=== PATIENT | female | born 1985 | race Caucasian/White ===

== ENCOUNTER 2018-01-19 07:13 | Outpatient (CLI) | payer BC, OTHER ==
[~2018-01-19] VITALS: Ht 165.1 cm; Wt 93.6 kg
[2018-01-19] MEDS ORDERED: TRAZ100T92 PO (13:46)
[2018-01-19] MEDS ORDERED: BUSP10TA95 PO (13:46)
[2018-01-19] MEDS ORDERED: CETI10TA17 PO (13:46)
[2018-01-19] MEDS ORDERED: NORG1TAB14 PO (13:46)
[2018-01-19] MEDS ORDERED: SERT100T8 PO (13:46)
[2018-01-19] MEDS ORDERED: LEVO50TA6 PO (13:46)
[2018-01-19 13:48] VITALS: BP 123/74
== END 2018-01-19 15:27 | disposition home or self-care (01) ==
LOC: PREOP 07:13
PROVIDERS: ATTEND Specialist
DX: Z01.818 Encounter for other preprocedural examination (principal); Z11.2 Encounter for screening for other bacterial diseases; M26.09 Other specified anomalies of jaw size
CPT/HCPCS: 87081

== ENCOUNTER 2018-04-20 05:31 | Outpatient (CLI) | payer BC ==
[~2018-04-20] VITALS: Ht 165.1 cm; Wt 93.4 kg
[~2018-04-20 05:31] MED LIST: BUSP10TA95 PO; CETI10TA17 PO; LEVO50TA6 PO; NORG1TAB14 PO; SERT100T8 PO; TRAZ100T92 PO
[2018-04-20] MEDS ORDERED: MONT10TA24 PO (12:48)
[2018-04-20] MEDS ORDERED: ZOLP10TA PO (12:48)
[2018-04-20] MEDS ORDERED: TRAZ-28 PO (12:48)
[2018-04-20] MEDS ORDERED: OMEP20TA7 PO (12:48)
== END 2018-04-20 13:08 ==
LOC: PREOP 05:31
PROVIDERS: ATTEND Specialist
DX: Z01.818 Encounter for other preprocedural examination (principal); M26.09 Other specified anomalies of jaw size

== ENCOUNTER 2018-05-01 08:07 | Day surgery (SDC) | payer BC ==
[~2018-05-01] VITALS: Ht 165.1 cm; Wt 93.4 kg
[~2018-05-01 08:07] MED LIST changes: +MONT10TA24 PO; +OMEP20TA7 PO; +TRAZ-28 PO; +ZOLP10TA PO
--- OUTSIDE RECORDS SUMMARY | 2018-05-01 08:12 | XMS REPORT ---
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 Medications Active Name Start Date Estimated Completion Date SIG Comments ibuprofen 800 mg oral tablet 12/17/2014 take 1 tablet by oral route 3 times a day as needed trazodone oral Zoloft oral Sprintec (28) 0.25-35 mg-mcg oral tablet 04/01/2015 take 1 tablet by oral route once daily Singulair 10 mg oral tablet 06/11/2015 12/08/2015 take 1 tablet (10 mg) by oral route once daily in the evening for 30 days levothyroxine 50 mcg oral tablet 06/11/2015 take 1 tablet by oral route daily prednisone 5 mg oral tablet 07/04/2015 take 4 tablets (20 mg) by oral route once daily for 5 days levothyroxine 50 mcg oral tablet 09/19/2015 TAKE ONE TABLET BY MOUTH ONCE DAILY Name Start Date Expiration Date SIG Comments Amoxil 500 mg oral capsule 02/11/2010 02/21/2010 take 1 capsule (500 mg) by oral route every 12 hours for 10 days amoxicillin 500 mg oral tablet 11/03/2011 11/10/2011 take 2 tablets by mouth BID x7 days. estradiol 1 mg oral tablet 07/27/2012 08/06/2012 take 1 tablet (1 mg) by oral route once daily for 10 days amoxicillin 500 mg oral capsule 02/22/2015 03/04/2015 take 1 capsule (500 mg) by oral route every 12 hours for 10 days Zyrtec-D 5-120 mg oral tablet extended release 12 hr 04/01/2015 take 1 tablet by oral route every 12 hours Medrol (Cale) 4 mg oral tablets,dose pack 04/07/2015 take as directed Flonase Allergy Relief 50 mcg/actuation nasal spray,suspension 04/16/2015 inhale 1 puff by nasal route 2 times a day Bactrim DS 800-160 mg oral tablet 06/11/2015 06/25/2015 take 1 tablet by oral route every 12 hours for 14 days Discontinued Name Start Date Discontinued Date SIG Comments Ventolin HFA 90 mcg/actuation inhalation HFA aerosol inhaler 02/11/20102013 inhale 1 - 2 puffs by inhalation route every 4-6 hours as needed promethazine-codeine 6.25-10 mg/5 mL oral syrup 02/11/2010 11/03/2011 take 5 milliliters by oral route every 6 hours as needed, not to exceed 30 mL in 24 hours Zoloft Oral 08/23/2014 trazodone Oral 09/23/2014 estradiol 1 mg oral tablet 07/27/2012 07/27/2012 take 1 tablet (1 mg) by oral route once daily for 10 days sent to [facility] cyclobenzaprine oral 09/23/2014 citalopram 20 mg oral tablet 09/24/2014 02/22/2015 take 1/2 tablet (20 mg) by oral route once daily zolpidem 10 mg oral tablet 11/13/2014 02/22/2015 take 1 tablet (10 mg) by oral route once daily at bedtime promethazine-codeine 6.25-10 mg/5 mL oral syrup 03/03/2015 04/01/2015 take 5 milliliters by oral route every 4-6 hours as needed, not to exceed 30 mL in 24 hours Problem List Description Status Onset Anemia Active Anxiety Active Asthma Active Vital Signs Date Time BP-Sys(mm[Hg] BP-Amanda(mm[Hg]) HR(bpm) RR(rpm) Temp WT HT HC BMI BSA BMI Percentile O2 Sat(%) 07/04/2015 9:15:00 AM 116 mmHg 82 mmHg 74 bpm 16 rpm 98.1 F 183 lbs 65 in 30.45 kg/m2 1.95 m2 98 % 06/11/2015 3:56:00 PM 110 mmHg 70 mmHg 74 bpm 16 rpm 99.6 F 187 lbs 65 in 31.1181 kg/m 1.9723 m 97 % 04/15/2015 10:35:00 AM 108 mmHg 75 mmHg 80 bpm 16 rpm 98 F 182.375 lbs 65 in 30.35 kg/m2 1.95 m2 98 % 04/07/2015 2:13:00 PM 118 mmHg 70 mmHg 66 bpm 20 rpm 97.8 F 185 lbs 65 in 30.7853 kg/m 1.9617 m 99 % 04/06/2015 1:35:00 PM 104 mmHg 72 mmHg 65 bpm 18 rpm 97.7 F 185 lbs 65 in 30.79 kg/m2 1.96 m2 99 % 04/01/2015 10:19:00 AM 118 mmHg 72 mmHg 62 bpm 18 rpm 99 F 187.25 lbs 65 in 31.1597 kg/m 1.9736 m 98 % 03/03/2015 9:50:00 AM 118 mmHg 80 mmHg 63 bpm 16 rpm 97.7 F 188.4 lbs 65 in 31.35 kg/m2 1.98 m2 97 % 02/22/2015 8:38:00 AM 124 mmHg 72 mmHg 74 bpm 18 rpm 98.4 F 190 lbs 65 in 31.6173 kg/m 1.9881 m 98 % 09/23/2014 3:54:00 PM 118 mmHg 72 mmHg 69 bpm 18 rpm 98.3 F 190.2 lbs 65 in 31.65 kg/m2 1.99 m2 99 % 08/23/2014 10:00:00 AM 124 mmHg 66 mmHg 76 bpm 18 rpm 97.6 F 189.5 lbs 65 in 31.5341 kg/m 1.9855 m 98 % 05/22/2012 9:44:00 AM 107 mmHg 74 mmHg 64 bpm 174 lbs 65 in 28.95 kg/m2 1.90 m2 05/09/2012 9:35:00 AM 128 mmHg 68 mmHg 66 bpm 18 rpm 176.5 lbs 65 in 29.3708 kg/m 1.9161 m 11/30/2011 9:57:00 AM 123 mmHg 74 mmHg 64 bpm 18 rpm 97.4 F 182.25 lbs 65 in 30.33 kg/m2 1.95 m2 11/03/2011 10:04:00 AM 126 mmHg 74 mmHg 64 bpm 18 rpm 96.3 F 184.25 lbs 65 in 30.6605 kg/m 1.9578 m 02/11/2010 9:17:00 AM 112 mmHg 68 mmHg 64 bpm 16 rpm 98 F 171.125 lbs Social History Name Description Comments Tobacco Never smoker Dating Alcohol Current some day Socially UNEMPLOYEED History of Procedures Date Ordered Description Order Status 11/30/2011 12:00 AM COMPLETE CBC W/AUTO DIFF WBC Returned 11/30/2011 12:00 AM ASSAY THYROID STIM HORMONE Returned 05/09/2012 12:00 AM CYTOPATH TBS C/V MANUAL Returned 05/09/2012 12:00 AM CHLAMYDIA CULTURE Returned 05/09/2012 12:00 AM N.GONORRHOEAE DNA AMP PROB Returned 05/09/2012 12:00 AM HTLV/HIV CONFIRMJ ANTIBODY Returned 05/09/2012 12:00 AM HEPATITIS B SURFACE AG EIA Returned 05/09/2012 12:00 AM HEPATITIS C AB TEST Returned 05/09/2012 12:00 AM SYPHILIS TEST NON-TREP QUAL Returned 05/09/2012 12:00 AM ASSAY THYROID STIM HORMONE Returned 05/22/2012 12:00 AM URINE TEST Reviewed 05/22/2012 12:00 AM INSERT DRUG IMPLANT DEVICE Reviewed 05/22/2012 12:00 AM Implanon device Reviewed 05/22/2012 12:00 AM URINE TEST Reviewed 08/23/2014 12:00 AM COMPLETE CBC W/AUTO DIFF WBC Returned 08/23/2014 12:00 AM COMPREHEN METABOLIC PANEL Returned 08/23/2014 12:00 AM ASSAY THYROID STIM HORMONE Returned 09/23/2014 12:00 AM THER/PROPH/DIAG INJ SC/IM Reviewed 09/23/2014 12:00 AM Decadron, Per 1 Mg [facility]# [address]-52 Reviewed 09/23/2014 12:00 AM Depo-Medrol 80 mg NDC#[address]-34 Reviewed 03/03/2015 12:00 AM THER/PROPH/DIAG INJ SC/IM Reviewed 03/03/2015 12:00 AM Decadron, Per 1 Mg [facility]# [address]-12 Reviewed 03/03/2015 12:00 AM Depo-Medrol 40mg Reviewed 04/01/2015 12:00 AM CYTOPATH C/V MANUAL Returned 04/01/2015 12:00 AM CHYLMD TRACH DNA AMP PROBE Returned 04/01/2015 12:00 AM N.GONORRHOEAE DNA AMP PROB Returned 04/01/2015 12:00 AM ASSAY OF TOTAL TESTOSTERONE Returned 06/11/2015 12:00 AM THER/PROPH/DIAG INJ SC/IM Reviewed 06/11/2015 12:00 AM Decadron, Per 1 Mg NDC# [address]-54 Reviewed 06/11/2015 12:00 AM Depo-Medrol 40mg Reviewed 06/11/2015 12:[address] MAXILLOFACIAL W/O DYE Returned Results Summary Data and Description Results 11/30/2011 10:52 AM WBC 8.5 RBC 4.32 HGB 12.90 g/dLHCT 37.90 %MCV 88.0 fLMCH 29.90 pgMCHC 34.0 g/dLRDW CV 12.50 %MPV 10.80 fLPLT 235 %NEUT 63.50 %%LYMP 28.30 %%MONO 6.70 %%EOS 1.30 %%BASO 0.20 %#NEUT 5.38 #LYMP 2.40 #MONO 0.57 #EOS 0.11 #BASO 0.02 TSH 3.640 uIU/mL 05/09/2012 10:52 AM TSH 1.590 uIU/mLHIV AG/AB COMBO 0.36 08/23/2014 10:52 AM WBC 5.2 RBC 4.11 HGB 12.10 g/dLHCT 35.40 %MCV 86.0 fLMCH 29.40 pgMCHC 34.20 g/dLRDW CV 12.50 %MPV 9.90 fLPLT 209 %NEUT 66.10 %%LYMP 26.80 %%MONO 5.40 %%EOS 1.50 %%BASO 0.20 %#NEUT 3.42 #LYMP 1.39 #MONO 0.28 #EOS 0.08 #BASO 0.01 GLUCOSE 107.0 mg/dLSODIUM 139.0 mmol/LPOTASSIUM 4.0 mmol/ LCHLORIDE 103.0 mmol/LCO2 26.0 mmol/LBUN 9.0 mg/dLCREATININE 0.70 mg/dLSGOT/AST 15.0 IU/LSGPT/ALT 9.0 IU/LALK PHOS 76.0 IU/LTOTAL PROTEIN 6.60 g/dLALBUMIN 4.0 g /dLTOTAL BILI 0.40 mg/dLCALCIUM 9.0 mg/dLeGFR 60 TSH 1.240 uIU/mL 04/01/2015 11:42 AM TESTOSTERONE 19.0 ng/dL History Of Immunizations Not available. History of Past Illness Name Date of Onset Comments Anxiety Anemia Asthma Headache Bronchitis, Acute Feb 11 2010 9:19AM Upper Respiratory Infections Feb 11 2010 9:19AM Depression OCD Thyroid disorder Pharyngitis, Acute Nov 03 2011 10:06AM Fatigue Nov 30 2011 10:02AM Lymph Nodes, Enlarged Nov 30 2011 10:02AM Family History of Hypothyroidism Nov 30 2011 10:02AM Routine gynecological examination May 09 2012 9:37AM High-Risk Sexual Behavior May 09 2012 9:37AM Hypothyroidism May 09 2012 9:37AM Contraceptive Counseling May 22 2012 9:53AM IMPLANON Insertion May 22 2012 10:25AM Special investigations and examinations; examination or test; examination or test, negative result May 22 2012 10:45AM Hypothyroidism, Acquired Aug 23 2014 10:02AM Fatigue Aug 23 2014 10:02AM Hyperthyroidism Sep 23 2014 3:56PM Depressive Disorder Sep 23 2014 3:56PM Insomnia Sep 23 2014 3:56PM Rhinitis, Allergic Sep 23 2014 3:56PM Sinusitis, Acute Feb 22 2015 8:40AM Cough Feb 22 2015 8:40AM Cough Mar 03 2015 9:54AM Sinusitis, Acute Mar 03 2015 9:54AM Routine gynecological examination Apr 01 2015 10:22AM Hirsutism Apr 01 2015 10:22AM Seasonal allergies Apr 01 2015 10:22AM Closed head injury Apr 06 2015 1:40PM Mild concussion Apr 06 2015 1:40PM Elbow tendonitis Apr 07 2015 2:16PM Headache Apr 15 2015 10:40AM Eustachian tube disorder, bilateral Apr 15 2015 10:40AM Chronic sinusitis Jun 11 2015 3:58PM Hypothyroidism, Acquired Jun 11 2015 3:58PM Acute Left Hip pain Jun 11 2015 3:58PM Knee pain, acute, left Jun 11 2015 3:58PM Photosensitive contact dermatitis Jul 04 2015 9:18AM Payers Insurance Name Company Name Plan Name Plan Number Policy Number Policy Group Number Start Date [employer] Financial Assistance [employer] Eric [id number] N/A [employer] [id number] N/A [employer] Employee Benefit [id number] N/A History of Encounters Visit Date Visit Type Provider 07/04/2015 Office visit Linnette Connor APRN 06/11/2015 Office visit Suki Ibrahim PEDIATRIC ALLERGIST 04/15/2015 Office visit Suki Ibrahim PEDIATRIC ALLERGIST 04/07/2015 Office visit Linnette Connor PEDIATRIC ALLERGIST 04/06/2015 Office visit Frank Telles PEDIATRIC ALLERGIST 04/01/2015 Office visit Suki Ibrahim PEDIATRIC ALLERGIST 03/03/2015 Office visit Suki Ibrahim PEDIATRIC ALLERGIST 02/22/2015 Office visit Ty Childers PA-C 09/23/2014 Office visit Linnette Connor PEDIATRIC ALLERGIST 08/23/2014 Office visit Suki Ibrahim PEDIATRIC ALLERGIST 05/22/2012 Office visit Renato Francis MD 05/09/2012 Office visit Suki Ibrahim PEDIATRIC ALLERGIST 11/30/2011 Office visit Suki Ibrahim PEDIATRIC ALLERGIST 11/03/2011 Office visit Suki Ibrahim PEDIATRIC ALLERGIST 02/11/2010 Office visit Amalia KELLER 10/06/2009 Office visit Han Benavidez DO
--- OUTSIDE RECORDS SUMMARY | 2018-05-01 08:13 | XMS REPORT ---
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 Phone Suki Ibrahim PCP Unavailable Allergies and Adverse Reactions Name [...] 1 tablet by oral route once daily levothyroxine 50 mcg oral tablet 06/11/2015 take 1 tablet by oral route daily levothyroxine 50 mcg oral tablet 09/19/2015 TAKE ONE TABLET BY MOUTH ONCE DAILY Augmentin 875-125 mg oral tablet 09/29/2015 10/06/2015 take 1 tablet by oral route every 12 hours for 7 days Name Start Date Expiration Date SIG Comments [...] route every 12 hours for 14 days Singulair 10 mg oral tablet 06/11/2015 12/08/2015 take 1 tablet (10 mg) by oral route once daily in the evening for 30 days prednisone 5 mg oral tablet 07/04/2015 take 4 tablets (20 mg) by oral route once daily for 5 days Discontinued Name Start Date Discontinued Date [...] once daily for 10 days sent to [facility] cyclobenzaprine oral 09/23/2014 citalopram 20 mg oral [...] HC BMI BSA BMI Percentile O2 Sat(%) 09/29/2015 1:39:00 PM 118 mmHg 66 mmHg 55 bpm 18 rpm 97.6 F 183 lbs 65 in 30.45 kg/m2 1.95 m2 98 % 07/04/2015 9:15:00 AM 116 mmHg 82 mmHg 74 bpm 16 rpm 98.1 F 183 lbs 65 in 30.4525 kg/m 1.9511 m 98 % 06/11/2015 3:56:00 PM 110 mmHg 70 mmHg 74 bpm 16 rpm 99.6 F 187 lbs 65 in 31.12 kg/m2 1.97 m2 97 % 04/15/2015 10:35:00 AM 108 mmHg 75 mmHg 80 bpm 16 rpm 98 F 182.375 lbs 65 in 30.3485 kg/m 1.9478 m 98 % 04/07/2015 2:13:00 PM 118 mmHg 70 mmHg 66 bpm 20 rpm 97.8 F 185 lbs 65 in 30.79 kg/m2 1.96 m2 99 % 04/06/2015 1:35:00 PM 104 mmHg 72 mmHg 65 bpm 18 rpm 97.7 F 185 lbs 65 in 30.7853 kg/m 1.9617 m 99 % 04/01/2015 10:19:00 AM 118 mmHg 72 mmHg 62 bpm 18 rpm 99 F 187.25 lbs 65 in 31.16 kg/m2 1.97 m2 98 % 03/03/2015 9:50:00 AM 118 mmHg 80 mmHg 63 bpm 16 rpm 97.7 F 188.4 lbs 65 in 31.3511 kg/m 1.9797 m 97 % 02/22/2015 8:38:00 AM 124 mmHg 72 mmHg 74 bpm 18 rpm 98.4 F 190 lbs 65 in 31.62 kg/m2 1.99 m2 98 % 09/23/2014 3:54:00 PM 118 mmHg 72 mmHg 69 bpm 18 rpm 98.3 F 190.2 lbs 65 in 31.6506 kg/m 1.9891 m 99 % 08/23/2014 10:00:00 AM 124 mmHg 66 mmHg 76 bpm 18 rpm 97.6 F 189.5 lbs 65 in 31.53 kg/m2 1.99 m2 98 % 05/22/2012 9:44:00 AM 107 mmHg 74 mmHg 64 bpm 174 lbs 65 in 28.9548 kg/m 1.9025 m 05/09/2012 9:35:00 AM 128 mmHg 68 mmHg 66 bpm 18 rpm 176.5 lbs 65 in 29.37 kg/m2 1.92 m2 11/30/2011 9:57:00 AM 123 mmHg 74 mmHg 64 bpm 18 rpm 97.4 F 182.25 lbs 65 in 30.3277 kg/m 1.9471 m 11/03/2011 10:04:00 AM 126 mmHg 74 mmHg 64 bpm 18 rpm 96.3 F 184.25 lbs 65 in 30.66 kg/m2 1.96 m2 02/11/2010 9:17:00 AM 112 mmHg 68 mmHg 64 bpm 16 rpm 98 F 171.125 lbs Social History Name Description Comments Tobacco Never smoker Dating Alcohol Current some day Socially UNEMPLOYEED History of Procedures Date Ordered Description Order Status 09/22/2015 12:00 AM ASSAY THYROID STIM HORMONE Returned 09/29/2015 12:00 AM METABOLIC PANEL TOTAL CA Returned 09/29/2015 12:00 AM GLUCOSE TOLERANCE TEST (GTT) Returned 11/30/2011 12:00 AM COMPLETE CBC W/AUTO DIFF [...] 09/23/2014 12:00 AM Decadron, Per 1 Mg NDC# [address]-71 Reviewed 09/23/2014 12:00 AM Depo-Medrol 80 mg NDC#[address]-69 Reviewed 03/03/2015 12:00 AM THER/PROPH/DIAG INJ SC/IM Reviewed 03/03/2015 12:00 AM Decadron, Per 1 Mg NDC# [address]-70 Reviewed 03/03/2015 12:00 AM Depo-Medrol 40mg Reviewed 04/01/2015 12:00 AM CYTOPATH C/V MANUAL Returned 04/01/2015 12:00 AM CHYLMD TRACH DNA AMP PROBE Returned 04/01/2015 12:00 AM N.GONORRHOEAE DNA AMP PROB Returned 04/01/2015 12:00 AM ASSAY OF TOTAL TESTOSTERONE Returned 06/11/2015 12:00 AM THER/PROPH/DIAG INJ SC/IM Reviewed 06/11/2015 12:00 AM Decadron, Per 1 Mg [facility]# [address]-62 Reviewed 06/11/2015 12:00 AM Depo-Medrol 40mg Reviewed [...] uIU/mL 04/01/2015 11:42 AM TESTOSTERONE 19.0 ng/dL 09/25/2015 1:28 PM TSH 2.0 uIU/mL 09/30/2015 11:50 AM GLUCOSE 81.0 mg/dLSODIUM 139.0 mmol/LPOTASSIUM 4.40 mmol/ LCHLORIDE 107.0 mmol/LCO2 25.0 mmol/LBUN 10.0 mg/dLCREATININE 0.80 mg/dLCALCIUM 9.0 mg/dLeGFR >60 mL/min/1.73m History Of Immunizations Not available. History of [...] Photosensitive contact dermatitis Jul 04 2015 9:18AM Hypothyroidism, Acquired Sep 22 2015 4:44PM Hyperglycemia Sep 29 2015 1:42PM Allergic rhinitis, unspecified allergic rhinitis type Sep 29 2015 1:42PM Shakiness Sep 29 2015 1:42PM Payers Insurance Name Company Name Plan Name Plan Number Policy Number Policy Group Number Start Date [employer] Financial Assistance [employer] Eric [id number] N[facility] [id number] N/[facility] [employer] Employee Benefit [id number] N/A History of Encounters Visit Date Visit Type Provider 09/29/2015 Office visit Suki Ibrahim LOOM WINDER TENDER 07/04/2015 Office visit Linnette Connor LOOM WINDER TENDER 06/11/2015 Office visit Suki Ibrahim LOOM WINDER TENDER 04/15/2015 Office visit Suki Ibrahim LOOM WINDER TENDER 04/07/2015 Office visit Linnette Connor LOOM WINDER TENDER 04/06/2015 Office visit Frank Telles LOOM WINDER TENDER 04/01/2015 Office visit Suki Ibrahim LOOM WINDER TENDER 03/03/2015 Office visit Suki Ibrahim LOOM WINDER TENDER 02/22/2015 Office visit Ty Childers PA-C 09/23/2014 Office visit Linnette Connor LOOM WINDER TENDER 08/23/2014 Office visit Suki Ibrahim LOOM WINDER TENDER 05/22/2012 Office visit Renato Francis MD 05/09/2012 Office visit Suki Ibrahim LOOM WINDER TENDER 11/30/2011 Office visit Suki Ibrahim LOOM WINDER TENDER 11/03/2011 Office visit Suki Ibrahim LOOM WINDER TENDER 02/11/2010 Office visit Amalia KELLER 10/06/2009 Office visit Han Benavidez DO
[2018-05-01] MEDS ORDERED: ONDANSETRON 4 MG/2 ML (SDV) Z0FRAN ONE ×2 (08:14→15:12)
[2018-05-01] MEDS ORDERED: ROCURONIUM 10 MG/ML 5 ML SYRINGE IV ONE (08:14)
[2018-05-01] MEDS ORDERED: proPOfol 200 MG/20 ML (DIPRIVAN) VIAL IV ONE ×2 (08:14→11:09)
[2018-05-01] MEDS ORDERED: DEXAMETHASONE 10 MG/ML (DECADRON) 1 ML VIAL ONE ×2 (08:14→13:30)
--- OUTSIDE RECORDS SUMMARY | 2018-05-01 08:14 | XMS REPORT ---
Author Author Suki Ibrahim Organization [facility] Address [address] [place], [place] [id number] Care Team Providers Care Project Manager Finance Name Role Phone Suki Ibrahim PCP Suki Ibrahim PreferredProvider Allergies and Adverse Reactions Name Reaction Notes oxycodone hydrocodone-nausea Plan of Treatment Planned Activity Comments Planned Date Planned Time Plan/Goal SED RATE 03/24/2017 12:00 AM T4 06/10/2017 12:00 AM Nuclear Medicine Thyroid Imaging 10/05/2017 12:00 AM CRP 07/25/2017 12:00 AM Polysomnogram 11/16/2017 12:00 AM Medications Active Name Start Date Estimated Completion Date SIG Comments levothyroxine 50 mcg oral tablet 06/11/2015 take 1 tablet by oral route daily levothyroxine 50 mcg oral tablet 09/19/2015 TAKE ONE TABLET BY MOUTH ONCE DAILY levothyroxine 50 mcg oral tablet 10/30/2015 TAKE ONE TABLET BY MOUTH ONCE DAILY levothyroxine 50 mcg oral tablet 02/11/2016 TAKE ONE TABLET BY MOUTH ONCE DAILY Zoloft oral trazodone oral pantoprazole 40 mg oral tablet,delayed release (DR/EC) take 1 tablet ( 40 mg) by oral route 2 times per day x 6 weeks Singulair 10 mg oral tablet 02/02/2018 take 1 tablet (10 mg) by oral route once daily in the evening for 30 days Name Start Date Expiration Date SIG [...] oral route once daily for 5 days Augmentin 875-125 mg oral tablet 09/29/2015 10/06/2015 take 1 tablet by oral route every 12 hours for 7 days amoxicillin 500 mg oral tablet 11/10/2015 11/17/2015 take 2 tablets by oral route 2 times a day for 7 days Augmentin 875-125 mg oral tablet 09/05/2016 09/15/2016 take 1 tablet by oral route every 12 hours for 10 days prednisone 20 mg oral tablet 09/16/2016 09/21/2016 take 1 tablet by oral route daily for 5 days Augmentin 875-125 mg oral tablet 05/16/2017 05/23/2017 take 1 tablet by oral route every 12 hours for 7 days Tessalon Perles 100 mg oral capsule 07/03/2017 take 1 capsule (100 mg) by oral route 3 times per day as needed for cough ProAir HFA 90 mcg/actuation inhalation HFA aerosol inhaler 07/19/2017 inhale 1 puff (90 mcg) by inhalation route every 4-6 hours as needed cetirizine 10 mg oral tablet 07/19/2017 01/15/2018 take 1 tablet (10 mg) by oral route once daily for 30 days Zithromax Z-Cale 250 mg oral tablet 07/26/2017 take 2 tablets (500 mg) by oral route once daily for 1 day then 1 tablet (250 mg) by oral route once daily for 4 days Bevespi Aerosphere 9-4.8 mcg inhalation HFA aerosol inhaler inhale 2 puffs by inhalation route 2 times per day in the morning and evening Singulair 10 mg oral tablet 08/17/2017 02/13/2018 take 1 tablet (10 mg) by oral route once daily in the evening meclizine 12.5 mg oral tablet 12/19/2017 take 1-2 tablets by oral route 2 times a day as needed for 30 days levothyroxine 50 mcg oral tablet 01/10/2018 01/10/2018 TAKE ONE TABLET BY MOUTH ONCE DAILY Sprintec (28) 0.25-35 mg-mcg oral tablet 01/10/2018 01/10/2018 TAKE ONE TABLET BY MOUTH ONCE DAILY promethazine-codeine 6.25-10 mg/5 mL oral syrup 01/18/2018 take 5 milliliters by oral route every 4-6 hours as needed, not to exceed 30 mL in 24 hours Discontinued Name Start Date Discontinued Date SIG [...] once daily for 10 days sent to [facility] cyclobenzaprine oral 09/23/2014 citalopram 20 mg oral tablet 09/24/2014 02/22/2015 take 1/2 tablet (20 mg) by oral route once daily zolpidem 10 mg oral tablet 11/13/2014 02/22/2015 take 1 tablet (10 mg) by oral route once daily at bedtime ibuprofen 800 mg oral tablet 12/17/2014 12/14/2016 take 1 tablet by oral route 3 times a day as needed trazodone oral 12/14/2016 Zoloft oral 10/09/2015 promethazine-codeine 6.25-10 mg/5 mL oral syrup 03/03/2015 04/01/2015 take 5 milliliters by oral route every 4-6 hours as needed, not to exceed 30 mL in 24 hours Nasonex 50 mcg/actuation nasal spray,non-aerosol 10/17/2015 10/30/2015 spray 2 sprays in each nostril by intranasal route once daily Flonase Allergy Relief 50 mcg/actuation nasal spray,suspension 10/30/201512/14 inhale 1 puff by nasal route 2 times a day Claritin 10 mg oral tablet 10/30/2015 12/14/2016 take 1 tablet (10 mg) by oral route once daily Sudafed 12 Hour 120 mg oral tablet extended release 10/30/2015 12/14/2016 take 1 tablet by oral route every 12 hours as needed Singulair 10 mg oral tablet 10/30/2015 12/14/2016 take 1 tablet (10 mg) by oral route once daily in the evening Brintellix 10 mg oral tablet 10/30/2015 12/14/2016 take 1 tablet (10 mg) by oral route once daily at the same time each day promethazine-codeine 6.25-10 mg/5 mL oral syrup 11/13/2015 12/14/2016 take 5 milliliters by oral route every 6 hours as needed, not to exceed 30 mL in 24 hours amitriptyline 25 mg oral tablet 12/14/2016 01/19/2017 take 1 tablet (25 mg) by oral route once daily at bedtime, may increase to 50mg at HS if needed trazodone 50 mg oral tablet 01/19/2017 01/19/2017 take 1 tablet (50 mg) by oral route once daily at bedtime Xanax 0.25 mg oral tablet 01/19/2017 03/22/2017 take 1 tablet by oral route once a day (at bedtime) as needed prednisone 20 mg oral tablet 05/16/2017 07/03/2017 take 1 tablet by oral route daily promethazine-codeine 6.25-10 mg/5 mL oral syrup 07/11/2017 09/28/2017 take 5 milliliters by oral route every 6 hours as needed, not to exceed 30 mL in 24 hours one time use amoxicillin 500 mg oral capsule 11/05/2017 12/19/2017 take 1 capsule (500 mg) by oral route 3 times per day for 10 days Problem List Description Status Onset Anemia Active Anxiety Active Asthma Active Allergic rhinitis, unspecified allergic rhinitis type Active 10/30/2015 Anxiety Active 10/30/2015 Hypothyroidism, Acquired Active 12/14/2016 Insomnia due to other mental disorder Active 12/14/2016 Recurrent major depressive disorder, in partial remission Active 01/19/2017 Vital Signs Date Time BP-Sys(mm[Hg] BP-Amanda(mm[Hg]) HR(bpm) RR(rpm) Temp WT HT HC BMI BSA BMI Percentile O2 Sat(%) 02/02/2018 1:22:00 PM 127 mmHg 67 mmHg 64 bpm 18 rpm 97 F 209.25 lbs 65 in 34.82 kg/m2 2.09 m2 97 % 01/18/2018 1:38:00 PM 116 mmHg 78 mmHg 77 bpm 16 rpm 97.1 F 205.5 lbs 65 in 34.1966 kg/m 2.0676 m 96 % 12/27/2017 1:55:00 PM 110 mmHg 72 mmHg 65 bpm 16 rpm 96.8 F 205 lbs 65 in 34.11 kg/m2 2.07 m2 96 % 12/26/2017 1:34:00 PM 128 mmHg 72 mmHg 71 bpm 16 rpm 97.2 F 206 lbs 65 in 34.2798 kg/m 2.0701 m 97 % 12/19/2017 3:58:00 PM 130 mmHg 74 mmHg 68 bpm 16 rpm 97.9 F 207.562 lbs 65 in 34.54 kg/m2 2.08 m2 98 % 11/16/2017 10:36:00 AM 124 mmHg 68 mmHg 63 bpm 16 rpm 97.7 F 205.25 lbs 65 in 34.155 kg/m 2.0663 m 97 % 11/04/2017 7:12:00 PM 118 mmHg 80 mmHg 62 bpm 18 rpm 97.4 F 208 lbs 65 in 34.61 kg/m2 2.08 m2 100 % 10/14/2017 8:14:00 AM 126 mmHg 66 mmHg 66 bpm 18 rpm 98.5 F 206.25 lbs 65 in 34.3214 kg/m 2.0713 m 98 % 09/28/2017 1:58:00 PM 128 mmHg 84 mmHg 72 bpm 16 rpm 97.7 F 207 lbs 65 in 34.45 kg/m2 2.08 m2 98 % 07/25/2017 2:05:00 PM 102 mmHg 63 mmHg 72 bpm 16 rpm 97.9 F 202 lbs 65 in 33.6142 kg/m 2.0499 m 98 % 07/19/2017 9:16:00 AM 118 mmHg 70 mmHg 60 bpm 18 rpm 97.9 F 205 lbs 65 in 34.11 kg/m2 2.07 m2 98 % 07/03/2017 1:25:00 PM 124 mmHg 86 mmHg 69 bpm 16 rpm 97.9 F 203 lbs 65 in 33.7806 kg/m 2.055 m 98 % 05/16/2017 10:36:00 AM 122 mmHg 62 mmHg 65 bpm 18 rpm 97.8 F 202.25 lbs 65 in 33.66 kg/m2 2.05 m2 97 % 03/22/2017 10:30:00 AM 126 mmHg 70 mmHg 61 bpm 18 rpm 97.1 F 199.375 lbs 65 in 33.1774 kg/m 2.0365 m 97 % 01/19/2017 11:22:00 AM 112 mmHg 66 mmHg 88 bpm 18 rpm 97.1 F 201 lbs 65 in 33.45 kg/m2 2.04 m2 97 % 12/14/2016 8:43:00 AM 124 mmHg 64 mmHg 75 bpm 18 rpm 96.1 F 196.375 lbs 65 in 32.6782 kg/m 2.0212 m 98 % 09/16/2016 2:01:00 PM 100 mmHg 68 mmHg 70 bpm 18 rpm 96.8 F 191.125 lbs 65 in 31.80 kg/m2 1.99 m2 97 % 09/05/2016 3:42:00 PM 110 mmHg 78 mmHg 65 bpm 16 rpm 97.9 F 191 lbs 65 in 31.7837 kg/m 1.9933 m 99 % 11/10/2015 8:58:00 AM 126 mmHg 72 mmHg 82 bpm 18 rpm 97.3 F 187 lbs 65 in 31.12 kg/m2 1.97 m2 99 % 10/30/2015 3:20:00 PM 126 mmHg 64 mmHg 62 bpm 18 rpm 97.6 F 186.125 lbs 65 in 30.9725 kg/m 1.9677 m 99 % 10/09/2015 8:41:00 AM 124 mmHg 64 mmHg 64 bpm 18 rpm 96.7 F 186.5 lbs 65 in 31.03 kg/m2 1.97 m2 98 % 09/29/2015 1:39:00 PM 118 mmHg 66 mmHg 55 bpm 18 rpm 97.6 F 183 lbs 65 in 30.4525 kg/m 1.9511 m 98 % 07/04/2015 9:15:00 AM 116 mmHg [...] 09/22/2015 12:00 AM ASSAY THYROID STIM HORMONE Reviewed 09/29/2015 12:00 AM METABOLIC PANEL TOTAL CA Reviewed 09/29/2015 12:00 AM GLUCOSE TOLERANCE TEST (GTT) Reviewed 11/10/2015 12:00 AM Bicillin CR, 1.2 million units [facility]# 00415-450-53 Reviewed 11/30/2011 12:00 AM COMPLETE CBC W/AUTO DIFF WBC Reviewed 11/30/2011 12:00 AM ASSAY THYROID STIM HORMONE Reviewed 12/14/2016 12:00 AM LIPID PANEL Reviewed 12/14/2016 12:00 AM ASSAY THYROID STIM HORMONE Reviewed 05/09/2012 12:00 AM CYTOPATH TBS C/V MANUAL Reviewed 05/09/2012 12:00 AM CHLAMYDIA CULTURE Reviewed 05/09/2012 12:00 AM N.GONORRHOEAE DNA AMP PROB Reviewed 05/09/2012 12:00 AM HTLV/HIV CONFIRMJ ANTIBODY Reviewed 05/09/2012 12:00 AM HEPATITIS B SURFACE AG EIA Reviewed 05/09/2012 12:00 AM HEPATITIS C AB TEST Reviewed 05/09/2012 12:00 AM SYPHILIS TEST NON-TREP QUAL Reviewed 05/09/2012 12:00 AM ASSAY THYROID STIM HORMONE Reviewed 05/22/2012 12:00 AM URINE TEST Reviewed 05/22/2012 12:00 AM INSERT DRUG IMPLANT DEVICE Reviewed 05/22/2012 12:00 AM Implanon device Reviewed 05/22/2012 12:00 AM URINE TEST Reviewed 03/22/2017 12:00 AM RHEUMATOID FACTOR QUANT Reviewed 03/22/2017 12:00 AM ANTINUCLEAR ANTIBODIES BERNARD Reviewed 03/22/2017 12:00 AM C-REACTIVE PROTEIN Reviewed 03/22/2017 12:00 AM RBC SED RATE AUTOMATED Reviewed 03/24/2017 12:00 AM ASSAY OF BLOOD/URIC ACID Reviewed 03/24/2017 12:00 AM C-REACTIVE PROTEIN Reviewed 06/09/2017 12:00 AM ASSAY THYROID STIM HORMONE Reviewed 06/10/2017 12:00 AM FREE ASSAY (FT-3) Reviewed 07/03/2017 12:00 AM THER/PROPH/DIAG INJ SC/IM Reviewed 07/03/2017 12:00 AM Depo-Medrol 40mg Injection Reviewed 07/03/2017 12:00 AM Decadron 4mg Injection Reviewed 09/28/2017 12:00 AM US EXAM OF HEAD AND NECK Returned 10/14/2017 12:00 AM ASSAY THYROID STIM HORMONE Reviewed 07/25/2017 12:00 AM COMPLETE CBC W/AUTO DIFF WBC Reviewed 07/25/2017 12:00 AM FIBRIN DEGRADE SEMIQUANT Reviewed 07/25/2017 12:00 AM CHEST X-RAY 2VW FRONTAL&LATL Reviewed 12/01/2017 12:00 AM COMPLETE CBC W/AUTO DIFF WBC Reviewed 12/01/2017 12:00 AM C-REACTIVE PROTEIN Reviewed 12/01/2017 12:00 AM RBC SED RATE AUTOMATED Reviewed 12/26/2017 12:00 AM CYTOPATH C/V THIN LAYER Returned 08/23/2014 12:00 AM COMPLETE CBC W/AUTO DIFF WBC Reviewed 08/23/2014 12:00 AM COMPREHEN METABOLIC PANEL Reviewed 08/23/2014 12:00 AM ASSAY THYROID STIM HORMONE Reviewed 09/23/2014 12:00 AM THER/PROPH/DIAG INJ SC/IM Reviewed 09/23/2014 12:00 AM Decadron, Per 1 Mg [facility]# [address]-67 Reviewed 09/23/2014 12:00 AM Depo-Medrol 80 mg [place]#[address]-43 Reviewed 03/03/2015 12:00 AM THER/PROPH/DIAG INJ SC/IM Reviewed 03/03/2015 12:00 AM Decadron, Per 1 Mg [facility]# [address]-78 Reviewed 03/03/2015 12:00 AM Depo-Medrol 40mg Reviewed 04/01/2015 12:00 AM CYTOPATH C/V MANUAL Reviewed 04/01/2015 12:00 AM CHYLMD TRACH DNA AMP PROBE Reviewed 04/01/2015 12:00 AM N.GONORRHOEAE DNA AMP PROB Reviewed 04/01/2015 12:00 AM ASSAY OF TOTAL TESTOSTERONE Reviewed 06/11/2015 12:00 AM THER/PROPH/DIAG INJ SC/IM Reviewed 06/11/2015 12:00 AM Decadron, Per 1 Mg [facility]# [address]-45 Reviewed 06/11/2015 12:00 AM Depo-Medrol 40mg Reviewed 06/11/2015 12:[address] MAXILLOFACIAL W/O DYE Reviewed Results Summary Date and Description Results 11/30/2011 10:52 AM WBC 8.5 RBC 4.32 HGB 12.90 g/dLHCT 37.90 %MCV 88.0 fLMCH 29.90 pgMCHC 34.0 g/dLRDW SD 40 RDW CV 12.50 %MPV 10.80 fLPLT 235 NRBC# 0.00 NRBC% 0.0 %NEUT 63.50 %%LYMP 28.30 %%MONO 6.70 %%EOS 1.30 %%BASO 0.20 %#NEUT 5.38 #LYMP 2.40 #MONO 0.57 #EOS 0.11 #BASO 0.02 MANUAL DIFF NOT IND TSH 3.640 uIU/mL 05/09/2012 10:52 AM TSH 1.590 uIU/mLHIV AG/AB COMBO 0.36 08/23/2014 10:52 AM WBC 5.2 RBC 4.11 HGB 12.10 g/dLHCT 35.40 %MCV 86.0 fLMCH 29.40 pgMCHC 34.20 g/dLRDW SD 39 RDW CV 12.50 %MPV 9.90 fLPLT 209 NRBC# 0.00 NRBC% 0.0 %NEUT 66.10 %%LYMP 26.80 %%MONO 5.40 %%EOS 1.50 %%BASO 0.20 %#NEUT 3.42 #LYMP 1.39 #MONO 0.28 #EOS 0.08 #BASO 0.01 MANUAL DIFF NOT IND GLUCOSE 107.0 mg/dLSODIUM 139.0 mmol/LPOTASSIUM 4.0 mmol/LCHLORIDE 103.0 mmol/LCO2 26.0 mmol/LBUN 9.0 mg/dLCREATININE 0.70 mg/dLSGOT/AST 15.0 IU/LSGPT/ALT 9.0 IU/LALK PHOS 76.0 IU/LTOTAL PROTEIN 6.60 g/dLALBUMIN 4.0 g/dLTOTAL BILI 0.40 mg/ dLCALCIUM 9.0 mg/dLAGE 29 GFR NonAA 100 GFR AA 121 eGFR 60 eGFR AA* 60 TSH 1.240 uIU/mL 04/01/2015 11:42 AM TESTOSTERONE 19.0 ng/dL 09/25/2015 1:28 PM TSH 2.0 uIU/mL 09/30/2015 11:50 AM GLUCOSE 81.0 mg/dLSODIUM 139.0 mmol/LPOTASSIUM 4.40 mmol/ LCHLORIDE 107.0 mmol/LCO2 25.0 mmol/LBUN 10.0 mg/dLCREATININE 0.80 mg/dLCALCIUM 9.0 mg/dLAGE 30 GFR NonAA 85 GFR AA 103 eGFR >60 mL/min/1.73meGFR AA* >60 12/21/2016 10:18 AM TRIGLYCERIDES 69.0 mg/dLCHOLESTEROL 183.0 mg/dLHDL 54.0 mg/ dLTOT CHOL/HDL 3.4 LDL (CALC) 115.0 mg/dLTSH 1.320 uIU/mL 03/22/2017 11:45 AM C REACTIVE PROTEIN 11.0 mg/LSEDRATE 25.0 mm/hrRA Factor < 15.0 IU/mLANA Direct Negative URIC ACID 4.6 mg/dL 06/10/2017 8:25 AM TSH 2.860 uIU/mLTriiodothyronine,Free,Serum 2.70 pg/mL 07/25/2017 3:00 PM WBC 7.3 RBC 4.30 HGB 12.80 g/dLHCT 37.20 %MCV 87.0 fLMCH 29.80 pgMCHC 34.40 g/dLRDW SD 41 RDW CV 13.20 %MPV 9.90 fLPLT 282 NRBC# 0.00 NRBC% 0.0 %NEUT 72.30 %%LYMP 22.20 %%MONO 3.70 %%EOS 1.0 %%BASO 0.40 %#NEUT 5.27 #LYMP 1.62 #MONO 0.27 #EOS 0.07 #BASO 0.03 MANUAL DIFF NOT IND D-DIMER QUANT 0.34 C REACTIVE PROTEIN 16.0 mg/L 10/14/2017 9:15 AM TSH 4.020 uIU/mL 12/01/2017 4:32 PM WBC 5.2 RBC 4.08 HGB 12.30 g/dLHCT 35.90 %MCV 88.0 fLMCH 30.10 pgMCHC 34.30 g/dLRDW SD 39 RDW CV 12.20 %MPV 9.40 fLPLT 236 NRBC# 0.00 NRBC% 0.0 %NEUT 64.80 %%LYMP 27.80 %%MONO 5.40 %%EOS 1.20 %%BASO 0.60 %#NEUT 3.38 #LYMP 1.45 #MONO 0.28 #EOS 0.06 #BASO 0.03 MANUAL DIFF NOT IND C REACTIVE PROTEIN 18.0 mg/LSEDRATE 28.0 mm/hr History Of Immunizations Not available. History of Past Illness Name Date of Onset Comments Anxiety Anemia Asthma Headache Bronchitis, Acute Feb 11 2010 9:19AM Upper Respiratory Infections Feb 11 2010 9:19AM Depression OCD Thyroid disorder Allergic rhinitis, unspecified allergic rhinitis type 10/30/2015 Anxiety 10/30/2015 Hypothyroidism, Acquired 12/14/2016 Insomnia due to other mental disorder 12/14/2016 Recurrent major depressive disorder, in partial remission 01/19/2017 Pharyngitis, Acute Nov 03 2011 10:06AM Fatigue [...] 2015 1:42PM Shakiness Sep 29 2015 1:42PM Anxiety Oct 09 2015 8:43AM Anxiety Oct 30 2015 3:22PM Allergic rhinitis, unspecified allergic rhinitis type Oct 30 2015 3:22PM Acute pharyngitis, unspecified etiology Nov 10 2015 9:00AM Acute frontal sinusitis, recurrence not specified Sep 05 2016 3:53PM Numbness and tingling in both hands Sep 16 2016 2:06PM Right maxillary sinusitis, chronic Sep 16 2016 2:06PM Hypothyroidism, Acquired Dec 14 2016 8:45AM Screening for ischemic heart disease Dec 14 2016 8:45AM Insomnia due to other mental disorder Dec 14 2016 8:45AM Anxiety Jan 19 2017 11:23AM Insomnia due to other mental disorder Jan 19 2017 11:23AM Mental disorder, not otherwise specified Jan 19 2017 11:23AM Recurrent major depressive disorder, in partial remission Jan 19 2017 11:23AM Encounter for surveillance of contraceptive pills Jan 19 2017 11:23AM Pain in joints of right hand Mar 22 2017 10:32AM Pain in joints of left hand Mar 22 2017 10:32AM Other fatigue Mar 22 2017 10:32AM Arthralgia Mar 24 2017 1:35PM Arthralgia of hand Mar 24 2017 3:54PM Acute frontal sinusitis, recurrence not specified May 16 2017 10:38AM Hypothyroid Jun 09 2017 10:25AM Hypothyroid Jun 10 2017 11:59AM Cough Jul 03 2017 1:27PM Cough Jul 19 2017 9:18AM Reactive airway disease, mild intermittent, with acute exacerbation Jul 19 2017 9:18AM Acute seasonal allergic rhinitis due to other allergen Jul 19 2017 9:18AM Shortness Of Breath Jul 25 2017 2:06PM Cough Jul 25 2017 2:06PM Allergic rhinitis Jul 03 2017 1:27PM Throat fullness Sep 28 2017 2:04PM Throat fullness Oct 05 2017 2:21PM Thyroid cyst Oct 05 2017 2:21PM Hypothyroidism, Acquired Oct 14 2017 8:16AM Anxiety Oct 14 2017 8:16AM Chronic idiopathic constipation Oct 14 2017 8:16AM Right otitis media with effusion Nov 04 2017 7:15PM Hypothyroidism, Acquired Nov 16 2017 10:37AM Chronic fatigue Nov 16 2017 10:37AM Anxiety Nov 16 2017 10:37AM Recurrent major depressive disorder, in partial remission Nov 16 2017 10:37AM Fatigue Dec 01 2017 3:48PM Routine gynecological examination Dec 26 2017 1:35PM Diffuse cystic mastopathy of right breast Dec 26 2017 1:35PM Diffuse cystic mastopathy of left breast Dec 26 2017 1:35PM Benign Neoplasm Of Scalp Dec 27 2017 1:55PM BPV (benign positional vertigo) Dec 19 2017 4:01PM Refraction/accommodation disorder Dec 19 2017 4:01PM Chronic sinusitis Dec 19 2017 4:01PM Cervical spondylosis Dec 19 2017 4:01PM Arthralgia of right temporomandibular joint Dec 19 2017 4:01PM Acute upper respiratory infection Jan 18 2018 1:40PM Cough Jan 18 2018 1:40PM Striae Feb 02 2018 1:24PM Erythema of breast Feb 02 2018 1:24PM Cough Feb 02 2018 1:24PM Payers Insurance Name Company Name Plan Name Plan Number Policy Number Policy Group Number Start Date [facility] [id number] N/A [employer] Employee Benefit [id number] N/A [email or web address] Financial Assistance [place] [employer] Eric 100 percent September [facility] [id number] N/A History of Encounters Visit Date Visit Type Provider 02/02/2018 Office visit Suki Ibrahim APRN 01/18/2018 Office visit Suki Ibrahim APRN 12/27/2017 Procedures Familia Key MD 12/26/2017 Office visit Suki Ibrahim APRN 12/19/2017 Office visit Deisy Garnett MD 11/16/2017 Office visit Suki Ibrahim APRN 11/04/2017 Office visit Shanon Rodriguez APRN 10/14/2017 Office visit Suki Ibrahim APRN 09/28/2017 Office visit Shanon Rodriguez APRN 07/25/2017 Office visit Suki Ibrahim APRN 07/19/2017 Office visit Suki Ibrahim CPC 07/03/2017 Office visit Shanon Rodriguez CPC 05/16/2017 Office visit Suki Walker CPC 03/22/2017 Office visit Suki Walker CPC 01/19/2017 Office visit Suki Walker CPC 12/14/2016 Office visit Suki Walker CPC 09/16/2016 Office visit Suki Walker CPC 09/05/2016 Office visit Morgan Lozano NP 11/10/2015 Office visit Suki Walker CPC 10/30/2015 Office visit Suki Walker CPC 10/09/2015 Office visit Suki Walker CPC 09/29/2015 Office visit Suki Ibrahim CPC 07/04/2015 Office visit Linnette Connor CPC 06/11/2015 Office visit 06/11/2015 Office visit Suki Ibrahim CPC 04/15/2015 Office visit Suki Ibrahim CPC 04/07/2015 Office visit Linnette Connor CPC 04/06/2015 Office visit Frank Telles CPC 04/01/2015 Office visit Suki Ibrahim CPC 03/03/2015 Office visit 03/03/2015 Office visit Suki Ibrahim CPC 02/22/2015 Office visit Ty Childers PA-C 09/23/2014 Office visit Linnette Connor CPC 08/23/2014 Office visit Suki Patrice CPC 05/22/2012 Office visit Renato Francis MD 05/09/2012 Office visit Suki Walker CPC 11/30/2011 Office visit Suki Walker CPC 11/03/2011 Office visit Suki Walker CPC 02/11/2010 Office visit Amalia KELLER 10/06/2009 Office visit Han Benavidez DO
[2018-05-01] MEDS ORDERED: MIDAZOLAM 2 MG/2 ML (VERSED) VIAL ONE (08:15)
[2018-05-01] MEDS ORDERED: fentaNYL INJECTION 100 MCG/2 ML AMP ONE ×4 (08:15→12:52)
--- OUTSIDE RECORDS SUMMARY | 2018-05-01 08:15 | XMS REPORT ---
Author Author Suki Ibrahim [facility] Address [address] [place], [place] [id number] Care Team Providers Care Cnc Maintenance Technician Name Role Phone Suki Ibrahim PCP Unavailable Suki Ibrahim PreferredProvider Unavailable Allergies and Adverse Reactions Name Reaction Notes NO KNOWN DRUG ALLERGIES Plan of Treatment Planned Activity Comments Planned Date Planned Time Plan/Goal CRP 03/24/2017 12:00 AM SED RATE 03/24/2017 12:00 AM TSH 06/09/2017 12:00 AM Medications Active Name Start Date [...] ONCE DAILY levothyroxine 50 mcg oral tablet 05/25/2016 TAKE ONE TABLET BY MOUTH ONCE DAILY Zoloft oral Sprintec (28) 0.25-35 mg-mcg oral tablet 01/19/2017 take 1 tablet by oral route once daily trazodone oral prednisone 20 mg oral tablet 05/16/2017 take 1 tablet by oral route daily Name Start Date Expiration Date SIG Comments [...] route every 12 hours for 7 days Discontinued Name Start Date Discontinued Date [...] once daily for 10 days sent to [facility] cyclobenzaprine oral 09/23/2014 citalopram 20 mg oral [...] once a day (at bedtime) as needed Problem List Description Status Onset Anemia Active Anxiety Active Asthma Active Allergic rhinitis, unspecified allergic rhinitis type Active 10/30/2015 Anxiety Active 10/30/2015 Hypothyroidism, Acquired Active 12/14/2016 Insomnia due to other mental disorder Active 12/14/2016 Recurrent major depressive disorder, in partial remission Active 01/19/2017 Vital Signs Date Time BP-Sys(mm[Hg] BP-Amanda(mm[Hg]) HR(bpm) RR(rpm) Temp WT HT HC BMI BSA BMI Percentile O2 Sat(%) 05/16/2017 10:36:00 AM 122 mmHg 62 mmHg [...] 12:00 AM Bicillin CR, 1.2 million units [facility]# 52426-525-44 Reviewed 11/30/2011 12:00 AM COMPLETE CBC W/AUTO [...] 12:00 AM ASSAY OF BLOOD/URIC ACID Reviewed 08/23/2014 12:00 AM COMPLETE CBC W/AUTO DIFF WBC Reviewed 08/23/2014 12:00 AM COMPREHEN METABOLIC PANEL Reviewed 08/23/2014 12:00 AM ASSAY THYROID STIM HORMONE Reviewed 09/23/2014 12:00 AM THER/PROPH/DIAG INJ SC/IM Reviewed 09/23/2014 12:00 AM Decadron, Per 1 Mg [facility]# [address]-67 Reviewed 09/23/2014 12:00 AM Depo-Medrol 80 mg [facility]#[address]-03 Reviewed 03/03/2015 12:00 AM THER/PROPH/DIAG INJ SC/IM Reviewed 03/03/2015 12:00 AM Decadron, Per 1 Mg [facility]# [address]-86 Reviewed 03/03/2015 12:00 AM Depo-Medrol 40mg Reviewed 04/01/2015 12:00 AM CYTOPATH C/V MANUAL Reviewed 04/01/2015 12:00 AM CHYLMD TRACH DNA AMP PROBE Reviewed 04/01/2015 12:00 AM N.GONORRHOEAE DNA AMP PROB Reviewed 04/01/2015 12:00 AM ASSAY OF TOTAL TESTOSTERONE Reviewed 06/11/2015 12:00 AM THER/PROPH/DIAG INJ SC/IM Reviewed 06/11/2015 12:00 AM Decadron, Per 1 Mg [facility]# [address]-82 Reviewed 06/11/2015 12:00 AM Depo-Medrol 40mg Reviewed [...] IU/mLANA Direct Negative URIC ACID 4.6 mg/dL History Of Immunizations Not available. History of [...] 2017 10:38AM Hypothyroid Jun 09 2017 10:25AM Payers Insurance Name Company Name Plan Name Plan Number Policy Number Policy Group Number Start Date BCBS [facility] [id number] N/A [employer] Employee Health Employee Benefit [id number] N/A [employer] Financial Assistance [employer] Eric 100 percent September [facility] [id number] N/A History of Encounters Visit Date Visit Type Provider 05/16/2017 Office visit Suki Ibrahim APRN 03/22/2017 Office visit Suki Ibrahim LEADERSHIP PROGRAM INTERNSHIP 01/19/2017 Office visit Suki Ibrahim APRN 12/14/2016 Office visit Suki Ibrahim LEADERSHIP PROGRAM INTERNSHIP 09/16/2016 Office visit Suki Ibrahim LEADERSHIP PROGRAM INTERNSHIP 09/05/2016 Office visit Morgan Lozano NP 11/10/2015 Office visit Suki Ibrahim LEADERSHIP PROGRAM INTERNSHIP 10/30/2015 Office visit Suki Ibrahim LEADERSHIP PROGRAM INTERNSHIP 10/09/2015 Office visit Suki Ibrahim LEADERSHIP PROGRAM INTERNSHIP 09/29/2015 Office visit Suki Ibrahim LEADERSHIP PROGRAM INTERNSHIP 07/04/2015 Office visit Linnette Connor LEADERSHIP PROGRAM INTERNSHIP 06/11/2015 Office visit 06/11/2015 Office visit Suki Ibrahim LEADERSHIP PROGRAM INTERNSHIP 04/15/2015 Office visit Suki Ibrahim LEADERSHIP PROGRAM INTERNSHIP 04/07/2015 Office visit Linnette Connor LEADERSHIP PROGRAM INTERNSHIP 04/06/2015 Office visit Frank Telles LEADERSHIP PROGRAM INTERNSHIP 04/01/2015 Office visit Suki Ibrahim LEADERSHIP PROGRAM INTERNSHIP 03/03/2015 Office visit 03/03/2015 Office visit Suki Ibrahim LEADERSHIP PROGRAM INTERNSHIP 02/22/2015 Office visit Ty Childers PA-C 09/23/2014 Office visit Linnette Connor LEADERSHIP PROGRAM INTERNSHIP 08/23/2014 Office visit uSki Ibrahim LEADERSHIP PROGRAM INTERNSHIP 05/22/2012 Office visit Renato Francis MD 05/09/2012 Office visit Suki Ibrahim LEADERSHIP PROGRAM INTERNSHIP 11/30/2011 Office visit Suki Ibrahim LEADERSHIP PROGRAM INTERNSHIP 11/03/2011 Office visit Suki Ibrahim LEADERSHIP PROGRAM INTERNSHIP 02/11/2010 Office visit Amalia KELLER 10/06/2009 Office visit Han Benavidez DO
--- OUTSIDE RECORDS SUMMARY | 2018-05-01 08:16 | XMS REPORT ---
Author Author Suki Ibrahim Organization [facility] Address [address] [place], [place] [id number] Care Team Providers Care Occasional Babysitter Name Role Phone Suki Ibrahim PCP Unavailable Suki Ibrahim PreferredProvider Unavailable Allergies and Adverse Reactions Name Reaction Notes NO KNOWN DRUG ALLERGIES Plan of Treatment Planned Activity Comments Planned Date Planned Time Plan/Goal CRP 03/24/2017 12:00 AM SED RATE 03/24/2017 12:00 AM Medications Active Name Start Date [...] by oral route once daily trazodone oral Name Start Date Expiration Date SIG Comments [...] by oral route daily for 5 days Discontinued Name Start [...] for 10 days sent to [facility] cyclobenzaprine oral 09/23/2014 citalopram 20 mg oral [...] HC BMI BSA BMI Percentile O2 Sat(%) 03/22/2017 10:30:00 AM 126 mmHg 70 mmHg 61 bpm 18 rpm 97.1 F 199.375 lbs 65 in 33.18 kg/m2 2.04 m2 97 % 01/19/2017 11:22:00 AM 112 mmHg 66 mmHg 88 bpm 18 rpm 97.1 F 201 lbs 65 in 33.4478 kg/m 2.0448 m 97 % 12/14/2016 8:43:00 AM 124 mmHg 64 mmHg 75 bpm 18 rpm 96.1 F 196.375 lbs 65 in 32.68 kg/m2 2.02 m2 98 % 09/16/2016 2:01:00 PM 100 mmHg 68 mmHg 70 bpm 18 rpm 96.8 F 191.125 lbs 65 in 31.8045 kg/m 1.994 m 97 % 09/05/2016 3:42:00 PM 110 mmHg 78 mmHg 65 bpm 16 rpm 97.9 F 191 lbs 65 in 31.78 kg/m2 1.99 m2 99 % 11/10/2015 8:58:00 AM 126 mmHg 72 mmHg 82 bpm 18 rpm 97.3 F 187 lbs 65 in 31.1181 kg/m 1.9723 m 99 % 10/30/2015 3:20:00 PM 126 mmHg 64 mmHg 62 bpm 18 rpm 97.6 F 186.125 lbs 65 in 30.97 kg/m2 1.97 m2 99 % 10/09/2015 8:41:00 AM 124 mmHg 64 mmHg 64 bpm 18 rpm 96.7 F 186.5 lbs 65 in 31.0349 kg/m 1.9697 m 98 % 09/29/2015 1:39:00 PM 118 mmHg [...] 12:00 AM Bicillin CR, 1.2 million units [facility]# 28580-188-05 Reviewed 11/30/2011 12:00 AM COMPLETE CBC W/AUTO DIFF WBC Reviewed 11/30/2011 12:00 AM ASSAY THYROID STIM HORMONE Reviewed 12/14/2016 12:00 AM LIPID PANEL Returned 12/14/2016 12:00 AM ASSAY THYROID STIM HORMONE Returned [...] Reviewed 03/22/2017 12:00 AM RHEUMATOID FACTOR QUANT Returned 03/22/2017 12:00 AM ANTINUCLEAR ANTIBODIES BERNARD Returned 03/22/2017 12:00 AM C-REACTIVE PROTEIN Returned 03/22/2017 12:00 AM RBC SED RATE AUTOMATED Returned 03/24/2017 12:00 AM ASSAY OF BLOOD/URIC ACID Returned 08/23/2014 12:00 AM COMPLETE CBC W/AUTO DIFF WBC Reviewed 08/23/2014 12:00 AM COMPREHEN METABOLIC PANEL Reviewed 08/23/2014 12:00 AM ASSAY THYROID STIM HORMONE Reviewed 09/23/2014 12:00 AM THER/PROPH/DIAG INJ SC/IM Reviewed 09/23/2014 12:00 AM Decadron, Per 1 Mg [facility]# [address]-49 Reviewed 09/23/2014 12:00 AM Depo-Medrol 80 mg [facility]#[address]-55 Reviewed 03/03/2015 12:00 AM THER/PROPH/DIAG INJ SC/IM Reviewed 03/03/2015 12:00 AM Decadron, Per 1 Mg [place]# [address]-96 Reviewed 03/03/2015 12:00 AM Depo-Medrol 40mg Reviewed 04/01/2015 12:00 AM CYTOPATH C/V MANUAL Reviewed 04/01/2015 12:00 AM CHYLMD TRACH DNA AMP PROBE Reviewed 04/01/2015 12:00 AM N.GONORRHOEAE DNA AMP PROB Reviewed 04/01/2015 12:00 AM ASSAY OF TOTAL TESTOSTERONE Reviewed 06/11/2015 12:00 AM THER/PROPH/DIAG INJ SC/IM Reviewed 06/11/2015 12:00 AM Decadron, Per 1 Mg [facility]# [address]-08 Reviewed 06/11/2015 12:00 AM Depo-Medrol 40mg Reviewed 06/11/2015 12:[address] MAXILLOFACIAL W/O DYE Reviewed Results Summary Data and Description Results 11/30/2011 [...] Arthralgia of hand Mar 24 2017 3:54PM Payers Insurance Name Company Name Plan Name Plan Number Policy Number Policy Group Number Start Date [place] [employer] Financial Assistance [place] [employer] Eric 100 percent September [facility] [id number] N/A [facility] Employee Health Employee Benefit [id number] N/A History of Encounters Visit Date Visit Type Provider 03/22/2017 Office visit Suki Ibrahim FUNCTIONAL MANAGER 01/19/2017 Office visit Suki Ibrahim FUNCTIONAL MANAGER 12/14/2016 Office visit Suki Ibrahim FUNCTIONAL MANAGER 09/16/2016 Office visit Suki Ibrahim FUNCTIONAL MANAGER 09/05/2016 Office visit Morgan Lozano NP 11/10/2015 Office visit Suki Ibrahim FUNCTIONAL MANAGER 10/30/2015 Office visit Suki Ibrahim FUNCTIONAL MANAGER 10/09/2015 Office visit Suki Ibrahim FUNCTIONAL MANAGER 09/29/2015 Office visit Suki Ibrahim FUNCTIONAL MANAGER 07/04/2015 Office visit Linnette Connor FUNCTIONAL MANAGER 06/11/2015 Office visit 06/11/2015 Office visit Suki Ibrahim FUNCTIONAL MANAGER 04/15/2015 Office visit Suki Ibrahim FUNCTIONAL MANAGER 04/07/2015 Office visit Linnette Connor FUNCTIONAL MANAGER 04/06/2015 Office visit Frank Telles FUNCTIONAL MANAGER 04/01/2015 Office visit Suki Ibrahim FUNCTIONAL MANAGER 03/03/2015 Office visit 03/03/2015 Office visit Suki Ibrahim FUNCTIONAL MANAGER 02/22/2015 Office visit Ty Childers PA-C 09/23/2014 Office visit Linnette Connor FUNCTIONAL MANAGER 08/23/2014 Office visit Suki Ibrahim FUNCTIONAL MANAGER 05/22/2012 Office visit Renato Francis MD 05/09/2012 Office visit Suki Ibrahim APRN 11/30/2011 Office visit Suki Ibrahim APRN 11/03/2011 Office visit Suki Ibrahim APRN 02/11/2010 Office visit Amalia KELLER 10/06/2009 Office visit Han Benavidez DO
--- OUTSIDE RECORDS SUMMARY | 2018-05-01 08:17 | XMS REPORT ---
Author Author Suki Ibrahim Organization [facility] Address [address] [place], [place] [phone] Care Team Providers Care Freezer Unloader Name Role Phone Suki Ibrahim PCP Suki [...] inhalation route every 4-6 hours as needed Zithromax Z-Cale 250 mg oral tablet 07/26/2017 [...] to exceed 30 mL in 24 hours Sprintec (28) 0.25-35 mg-mcg oral tablet 02/10/2018 02/10/2018 TAKE ONE TABLET BY MOUTH ONCE DAILY promethazine-codeine 6.25-10 mg/5 mL oral syrup 02/15/2018 take 5 milliliters by oral route every 6 hours as needed, not to exceed 30 mL in 24 hours cetirizine 10 mg oral tablet 02/28/2018 02/28/2018 TAKE ONE TABLET BY MOUTH ONCE DAILY Discontinued Name Start Date Discontinued Date SIG [...] once daily for 10 days sent to [facility] cyclobenzaprine oral 09/23/2014 citalopram 20 mg [...] Active 01/19/2017 Vital Signs Date Time BP-Sys(mm[Hg] BP-Amanad(mm[Hg]) HR(bpm) RR(rpm) Temp WT HT HC BMI BSA BMI Percentile O2 Sat(%) 03/30/2018 8:44:00 AM 128 mmHg 68 mmHg 68 bpm 18 rpm 99 F 205 lbs 65 in 34.1134 kg/m 2.0651 m 98 % 02/02/2018 1:22:00 PM 127 mmHg 67 mmHg [...] 12:00 AM Bicillin CR, 1.2 million units [facility]# 96666-542-16 Reviewed 11/30/2011 12:00 AM COMPLETE CBC W/AUTO [...] 12:00 AM CYTOPATH C/V THIN LAYER Returned 03/30/2018 12:00 AM Decadron, Per 1 Mg [facility]# [address]-75 Reviewed 03/30/2018 12:00 AM Depo-Medrol 40mg Injection Reviewed 08/23/2014 12:00 AM COMPLETE CBC W/AUTO DIFF WBC Reviewed 08/23/2014 12:00 AM COMPREHEN METABOLIC PANEL Reviewed 08/23/2014 12:00 AM ASSAY THYROID STIM HORMONE Reviewed 09/23/2014 12:00 AM THER/PROPH/DIAG INJ SC/IM Reviewed 09/23/2014 12:00 AM Decadron, Per 1 Mg [facility]# [address]-84 Reviewed 09/23/2014 12:00 AM Depo-Medrol 80 mg [facility]#[address]-45 Reviewed 03/03/2015 12:00 AM THER/PROPH/DIAG INJ SC/IM Reviewed 03/03/2015 12:00 AM Decadron, Per 1 Mg [facility]# [address]-65 Reviewed 03/03/2015 12:00 AM Depo-Medrol 40mg Reviewed 04/01/2015 12:00 AM CYTOPATH C/V MANUAL Reviewed 04/01/2015 12:00 AM CHYLMD TRACH DNA AMP PROBE Reviewed 04/01/2015 12:00 AM N.GONORRHOEAE DNA AMP PROB Reviewed 04/01/2015 12:00 AM ASSAY OF TOTAL TESTOSTERONE Reviewed 06/11/2015 12:00 AM THER/PROPH/DIAG INJ SC/IM Reviewed 06/11/2015 12:00 AM Decadron, Per 1 Mg [facility]# [address]-38 Reviewed 06/11/2015 12:00 AM Depo-Medrol 40mg Reviewed [...] 2018 1:24PM Cough Feb 02 2018 1:24PM Neck pain Mar 30 2018 8:46AM Anesthesia of skin Mar 30 2018 8:46AM Paresthesia of skin Mar 30 2018 8:46AM Cough Mar 30 2018 8:46AM Viral illness Mar 30 2018 8:46AM Payers Insurance Name Company Name Plan Name Plan Number Policy Number Policy Group Number Start Date BCBS [facility] [id number] N/A [employer] Employee Health Employee Benefit [id number] N/A [place] Financial Assistance [facility] Financial Eric 100 percent September [facility] [id number] N/A History of Encounters Visit Date Visit Type Provider 03/30/2018 Office visit Suki Walker OSTEOPATHIC PHYSICIAN 02/02/2018 Office visit Suki Walker OSTEOPATHIC PHYSICIAN 01/18/2018 Office visit Suki Walker OSTEOPATHIC PHYSICIAN 12/27/2017 Procedures Familia Key MD 12/26/2017 Office visit Suki Walker OSTEOPATHIC PHYSICIAN 12/19/2017 Office visit Deisy Garnett MD 11/16/2017 Office visit Suki Walker OSTEOPATHIC PHYSICIAN 11/04/2017 Office visit Shanon Dawkins [place] OSTEOPATHIC PHYSICIAN 10/14/2017 Office visit Suki Walker OSTEOPATHIC PHYSICIAN 09/28/2017 Office visit Shanon Dawkins [place] OSTEOPATHIC PHYSICIAN 07/25/2017 Office visit Suki Walker OSTEOPATHIC PHYSICIAN 07/19/2017 Office visit Suki Walker OSTEOPATHIC PHYSICIAN 07/03/2017 Office visit Shanon Dawkins [place] OSTEOPATHIC PHYSICIAN 05/16/2017 Office visit Suki Walker OSTEOPATHIC PHYSICIAN 03/22/2017 Office visit Suki Walker OSTEOPATHIC PHYSICIAN 01/19/2017 Office visit Suki Walker OSTEOPATHIC PHYSICIAN 12/14/2016 Office visit Suki Walker OSTEOPATHIC PHYSICIAN 09/16/2016 Office visit Suki Walker OSTEOPATHIC PHYSICIAN 09/05/2016 Office visit Morgan Lozano NP 11/10/2015 Office visit Suki Walker OSTEOPATHIC PHYSICIAN 10/30/2015 Office visit Suki Walker OSTEOPATHIC PHYSICIAN 10/09/2015 Office visit Suki Walker OSTEOPATHIC PHYSICIAN 09/29/2015 Office visit Suki Walker OSTEOPATHIC PHYSICIAN 07/04/2015 Office visit Linnette Connor OSTEOPATHIC PHYSICIAN 06/11/2015 Office visit 06/11/2015 Office visit Suki Walker OSTEOPATHIC PHYSICIAN 04/15/2015 Office visit Suki Walker OSTEOPATHIC PHYSICIAN 04/07/2015 Office visit Linnette Connor OSTEOPATHIC PHYSICIAN 04/06/2015 Office visit Frank Telles OSTEOPATHIC PHYSICIAN 04/01/2015 Office visit Suki Walker OSTEOPATHIC PHYSICIAN 03/03/2015 Office visit 03/03/2015 Office visit Suki Walker OSTEOPATHIC PHYSICIAN 02/22/2015 Office visit Ty Childers PA-C 09/23/2014 Office visit Linnette Connor OSTEOPATHIC PHYSICIAN 08/23/2014 Office visit Suki Walker OSTEOPATHIC PHYSICIAN 05/22/2012 Office visit Renato Francis MD 05/09/2012 Office visit Suki Walker OSTEOPATHIC PHYSICIAN 11/30/2011 Office visit Suki Walker OSTEOPATHIC PHYSICIAN 11/03/2011 Office visit Suki Walker OSTEOPATHIC PHYSICIAN 02/11/2010 Office visit Amalia KELLER 10/06/2009 Office visit Han Benavidez DO
--- OUTSIDE RECORDS SUMMARY | 2018-05-01 08:18 | XMS REPORT ---
Author Author Suki Ibrahim Organization [facility] Address [address] [place], [place] [id number] Care Team Providers Care Lime Boiler Name Role Phone Suki Ibrahim PCP Suki Ibrahim PreferredProvider Allergies and Adverse Reactions Name Reaction Notes Oxycodone hydrocodone-nausea Plan of Treatment Planned Activity Comments Planned Date Planned Time Plan/Goal SED RATE 03/24/2017 12:00 AM T4 06/10/2017 12:00 AM Nuclear Medicine Thyroid Imaging 10/05/2017 12:00 AM CRP 07/25/2017 12:00 AM Polysomnogram 11/16/2017 12:00 AM Pap smear 12/26/2017 12:00 AM Medications Active Name Start Date [...] by oral route once daily trazodone oral levothyroxine 50 mcg oral tablet 06/10/2017 TAKE ONE TABLET BY MOUTH ONCE DAILY cetirizine 10 mg oral tablet 07/19/2017 01/15/2018 take 1 tablet (10 mg) by oral route once daily for 30 days pantoprazole 40 mg oral tablet,delayed release (DR/EC) take 1 tablet ( 40 mg) by oral route 2 times per day x 6 weeks meclizine 12.5 mg oral tablet 12/19/2017 take 1-2 tablets by oral route 2 times a day as needed for 30 days Name Start Date Expiration [...] oral route once daily in the evening Discontinued Name Start Date Discontinued Date SIG [...] once daily for 10 days sent to [facility] cyclobenzaprine oral 09/23/2014 citalopram 20 [...] HC BMI BSA BMI Percentile O2 Sat(%) 12/26/2017 1:34:00 PM 128 mmHg 72 mmHg 71 bpm 16 rpm 97.2 F 206 lbs 65 in 34.28 kg/m2 2.07 m2 97 % 12/19/2017 3:58:00 PM 130 mmHg 74 mmHg 68 bpm 16 rpm 97.9 F 207.562 lbs 65 in 34.5399 kg/m 2.0779 m 98 % 11/16/2017 10:36:00 AM 124 mmHg 68 mmHg 63 bpm 16 rpm 97.7 F 205.25 lbs 65 in 34.16 kg/m2 2.07 m2 97 % 11/04/2017 7:12:00 PM 118 mmHg 80 mmHg 62 bpm 18 rpm 97.4 F 208 lbs 65 in 34.6127 kg/m 2.0801 m 100 % 10/14/2017 8:14:00 AM 126 mmHg 66 mmHg 66 bpm 18 rpm 98.5 F 206.25 lbs 65 in 34.32 kg/m2 2.07 m2 98 % 09/28/2017 1:58:00 PM 128 mmHg 84 mmHg 72 bpm 16 rpm 97.7 F 207 lbs 65 in 34.4462 kg/m 2.0751 m 98 % 07/25/2017 2:05:00 PM 102 mmHg 63 mmHg 72 bpm 16 rpm 97.9 F 202 lbs 65 in 33.61 kg/m2 2.05 m2 98 % 07/19/2017 9:16:00 AM 118 mmHg 70 mmHg 60 bpm 18 rpm 97.9 F 205 lbs 65 in 34.1134 kg/m 2.0651 m 98 % 07/03/2017 1:25:00 PM 124 mmHg 86 mmHg 69 bpm 16 rpm 97.9 F 203 lbs 65 in 33.78 kg/m2 2.05 m2 98 % 05/16/2017 10:36:00 AM 122 mmHg 62 mmHg 65 bpm 18 rpm 97.8 F 202.25 lbs 65 in 33.6558 kg/m 2.0512 m 97 % 03/22/2017 10:30:00 AM 126 mmHg [...] 12:00 AM Bicillin CR, 1.2 million units [facility]# 41166-094-15 Reviewed 11/30/2011 12:00 AM COMPLETE CBC W/AUTO [...] 12:00 AM RBC SED RATE AUTOMATED Reviewed 08/23/2014 12:00 AM COMPLETE CBC W/AUTO DIFF WBC Reviewed 08/23/2014 12:00 AM COMPREHEN METABOLIC PANEL Reviewed 08/23/2014 12:00 AM ASSAY THYROID STIM HORMONE Reviewed 09/23/2014 12:00 AM THER/PROPH/DIAG INJ SC/IM Reviewed 09/23/2014 12:00 AM Decadron, Per 1 Mg [facility]# [address]-07 Reviewed 09/23/2014 12:00 AM Depo-Medrol 80 mg [facility]#[address]-19 Reviewed 03/03/2015 12:00 AM THER/PROPH/DIAG INJ SC/IM Reviewed 03/03/2015 12:00 AM Decadron, Per 1 Mg [facility]# [address]-12 Reviewed 03/03/2015 12:00 AM Depo-Medrol 40mg Reviewed 04/01/2015 12:00 AM CYTOPATH C/V MANUAL Reviewed 04/01/2015 12:00 AM CHYLMD TRACH DNA AMP PROBE Reviewed 04/01/2015 12:00 AM N.GONORRHOEAE DNA AMP PROB Reviewed 04/01/2015 12:00 AM ASSAY OF TOTAL TESTOSTERONE Reviewed 06/11/2015 12:00 AM THER/PROPH/DIAG INJ SC/IM Reviewed 06/11/2015 12:00 AM Decadron, Per 1 Mg [facility]# [address]-37 Reviewed 06/11/2015 12:00 AM Depo-Medrol 40mg Reviewed [...] of left breast Dec 26 2017 1:35PM Payers Insurance Name Company Name Plan Name Plan Number Policy Number Policy Group Number [facility] [id number] N/A [employer] Employee Health Employee Benefit [id number] N/A [employer] Financial Assistance [facility] Financial Eric 100 percent September [facility] [id number] N/A History of Encounters Visit Date Visit Type Provider 12/26/2017 Office visit Suki Ibrahim RRT 12/19/2017 Office visit Deisy Garnett MD 11/16/2017 Office visit Suki Ibrahim RRT 11/04/2017 Office visit Shanon Juancho [place] RRT 10/14/2017 Office visit Suki Walker RRT 09/28/2017 Office visit Shanon L. [place] RRT 07/25/2017 Office visit Suki Walker RRT 07/19/2017 Office visit Suki Walker RRT 07/03/2017 Office visit Shanon Dawkins [place] RRT 05/16/2017 Office visit Suki Ibrahim RRT 03/22/2017 Office visit Suki Walker RRT 01/19/2017 Office visit Suki Ibrahim RRT 12/14/2016 Office visit Suki Walker RRT 09/16/2016 Office visit Suki Ibrahim RRT 09/05/2016 Office visit Morgan Lozano NP 11/10/2015 Office visit Suki Ibrahim RRT 10/30/2015 Office visit Suki Ibrahim RRT 10/09/2015 Office visit Suki Walker RRT 09/29/2015 Office visit Suki Ibrahim RRT 07/04/2015 Office visit Linnette Connor RRT 06/11/2015 Office visit 06/11/2015 Office visit Suki Ibrahim RRT 04/15/2015 Office visit Suki Ibrahim RRT 04/07/2015 Office visit Linnette Connor RRT 04/06/2015 Office visit Frank Telles RRT 04/01/2015 Office visit Suki Ibrahim RRT 03/03/2015 Office visit 03/03/2015 Office visit Suki Ibrahim RRT 02/22/2015 Office visit Ty Childers PA-C 09/23/2014 Office visit Linnette Connor RRT 08/23/2014 Office visit Suki Ibrahim RRT 05/22/2012 Office visit Renato Francis MD 05/09/2012 Office visit Suki Ibrahim RRT 11/30/2011 Office visit Suki Ibrahim RRT 11/03/2011 Office visit Suki Ibrahim RRT 02/11/2010 Office visit Amalia KELLER 10/06/2009 Office visit Han Benavidez DO
--- OUTSIDE RECORDS SUMMARY | 2018-05-01 08:19 | XMS REPORT ---
Author Author Familia Key [facility] Address [address] [place], [place] [address] Care Team Providers Care Linux Vmware Administrator Name Role Phone Familia Key PCP Suki Ibrahim PreferredProvider Allergies and Adverse [...] MOUTH ONCE DAILY Zoloft oral trazodone oral cetirizine 10 mg oral tablet 07/19/2017 01/15/2018 [...] oral route once daily in the evening levothyroxine 50 mcg oral tablet 01/10/2018 01/10/2018 [...] for 10 days sent to [facility] cyclobenzaprine oral 09/23/2014 citalopram 20 mg oral [...] HC BMI BSA BMI Percentile O2 Sat(%) 12/27/2017 1:55:00 PM 110 mmHg 72 mmHg [...] 12:00 AM Bicillin CR, 1.2 million units [facility]# 68617-343-12 Reviewed 11/30/2011 12:00 AM COMPLETE CBC W/AUTO [...] 09/23/2014 12:00 AM Decadron, Per 1 Mg [facility]# [address]-05 Reviewed 09/23/2014 12:00 AM Depo-Medrol 80 mg ND#[address]-99 Reviewed 03/03/2015 12:00 AM THER/PROPH/DIAG INJ SC/IM Reviewed 03/03/2015 12:00 AM Decadron, Per 1 Mg [facility]# [address]-23 Reviewed 03/03/2015 12:00 AM Depo-Medrol 40mg Reviewed 04/01/2015 12:00 AM CYTOPATH C/V MANUAL Reviewed 04/01/2015 12:00 AM CHYLMD TRACH DNA AMP PROBE Reviewed 04/01/2015 12:00 AM N.GONORRHOEAE DNA AMP PROB Reviewed 04/01/2015 12:00 AM ASSAY OF TOTAL TESTOSTERONE Reviewed 06/11/2015 12:00 AM THER/PROPH/DIAG INJ SC/IM Reviewed 06/11/2015 12:00 AM Decadron, Per 1 Mg [facility]# [address]-31 Reviewed 06/11/2015 12:00 AM Depo-Medrol 40mg Reviewed [...] right temporomandibular joint Dec 19 2017 4:01PM Payers Insurance Name Company Name Plan Name Plan Number Policy Number Policy Group Number Start Date [employer] [place] [id number] N/A [employer] Employee [employer] Employee Benefit [id number] N/A [employer] Financial Assistance [employer] Financial Eric 100 percent September [facility] [facility] [id number] N/A History of Encounters Visit Date Visit Type Provider 12/27/2017 Procedures Familia Key MD 12/26/2017 Office visit Suki Ibrahim METALS SALES REPRESENTATIVE 12/19/2017 Office visit Deisy Garnett MD 11/16/2017 Office visit Suki Ibrahim METALS SALES REPRESENTATIVE 11/04/2017 Office visit Shanon Rodriguez METALS SALES REPRESENTATIVE 10/14/2017 Office visit Suki Ibrahim METALS SALES REPRESENTATIVE 09/28/2017 Office visit Shanon Rodriguez METALS SALES REPRESENTATIVE 07/25/2017 Office visit Suki Ibrahim METALS SALES REPRESENTATIVE 07/19/2017 Office visit Suki Ibrahim METALS SALES REPRESENTATIVE 07/03/2017 Office visit Shanon Rodriguez METALS SALES REPRESENTATIVE 05/16/2017 Office visit Suki Ibrahim METALS SALES REPRESENTATIVE 03/22/2017 Office visit Suki Ibrahim METALS SALES REPRESENTATIVE 01/19/2017 Office visit Suki Ibrahim METALS SALES REPRESENTATIVE 12/14/2016 Office visit Suki Ibrahim METALS SALES REPRESENTATIVE 09/16/2016 Office visit Suki Ibrahim METALS SALES REPRESENTATIVE 09/05/2016 Office visit Morgan Lozano NP 11/10/2015 Office visit Suki Ibrahim METALS SALES REPRESENTATIVE 10/30/2015 Office visit Suki Ibrahim METALS SALES REPRESENTATIVE 10/09/2015 Office visit Suki Ibrahim METALS SALES REPRESENTATIVE 09/29/2015 Office visit Suki Ibrahim METALS SALES REPRESENTATIVE 07/04/2015 Office visit Linnette Connor METALS SALES REPRESENTATIVE 06/11/2015 Office visit 06/11/2015 Office visit Suki Ibrahim METALS SALES REPRESENTATIVE 04/15/2015 Office visit Suki Ibrahim METALS SALES REPRESENTATIVE 04/07/2015 Office visit Linnette Connor METALS SALES REPRESENTATIVE 04/06/2015 Office visit Frank Telles METALS SALES REPRESENTATIVE 04/01/2015 Office visit Suki Ibrahim METALS SALES REPRESENTATIVE 03/03/2015 Office visit 03/03/2015 Office visit Suki Ibrahim METALS SALES REPRESENTATIVE 02/22/2015 Office visit Ty Childers PA-C 09/23/2014 Office visit Linnette Connor METALS SALES REPRESENTATIVE 08/23/2014 Office visit Suki Ibrahim METALS SALES REPRESENTATIVE 05/22/2012 Office visit Renato Francis MD 05/09/2012 Office visit Suki Ibrahim METALS SALES REPRESENTATIVE 11/30/2011 Office visit Suki Ibrahim METALS SALES REPRESENTATIVE 11/03/2011 Office visit Suki Ibrahim METALS SALES REPRESENTATIVE 02/11/2010 Office visit Amalia KELLER 10/06/2009 Office visit Han Benavidez DO
--- OUTSIDE RECORDS SUMMARY | 2018-05-01 08:20 | XMS REPORT ---
Author Author Suki Ibrahim [facility] Address [address] [place], [place] [id number] Care Team Providers Care Care Team Assistant Name Role Phone Suki Ibrahim PCP Suki [...] oral route once daily for 30 days amoxicillin 500 mg oral capsule 11/05/2017 take 1 capsule (500 mg) by oral route 3 times per day for 10 days Name Start Date Expiration Date SIG [...] mL in 24 hours one time use Problem List Description Status Onset Anemia Active Anxiety Active Asthma Active Allergic rhinitis, unspecified allergic rhinitis type Active 10/30/2015 Anxiety Active 10/30/2015 Hypothyroidism, Acquired Active 12/14/2016 Insomnia due to other mental disorder Active 12/14/2016 Recurrent major depressive disorder, in partial remission Active 01/19/2017 Vital Signs Date Time BP-Sys(mm[Hg] BP-Amanda(mm[Hg]) HR(bpm) RR(rpm) Temp WT HT HC BMI BSA BMI Percentile O2 Sat(%) 11/16/2017 10:36:00 AM 124 mmHg 68 mmHg [...] units [facility]# 21515-523-20 Reviewed 11/30/2011 12:00 AM COMPLETE CBC W/AUTO [...] 10/14/2017 12:00 AM ASSAY THYROID STIM HORMONE Returned 07/25/2017 12:00 AM COMPLETE CBC W/AUTO DIFF WBC Reviewed 07/25/2017 12:00 AM FIBRIN DEGRADE SEMIQUANT Reviewed 07/25/2017 12:00 AM CHEST X-RAY 2VW FRONTAL&LATL Reviewed 08/23/2014 12:00 AM COMPLETE CBC W/AUTO DIFF WBC Reviewed 08/23/2014 12:00 AM COMPREHEN METABOLIC PANEL Reviewed 08/23/2014 12:00 AM ASSAY THYROID STIM HORMONE Reviewed 09/23/2014 12:00 AM THER/PROPH/DIAG INJ SC/IM Reviewed 09/23/2014 12:00 AM Decadron, Per 1 Mg [facility]# [address]-50 Reviewed 09/23/2014 12:00 AM Depo-Medrol 80 mg N[facility]#[address]-97 Reviewed 03/03/2015 12:00 AM THER/PROPH/DIAG INJ SC/IM Reviewed 03/03/2015 12:00 AM Decadron, Per 1 Mg [facility]# [address]-86 Reviewed 03/03/2015 12:00 AM Depo-Medrol 40mg Reviewed 04/01/2015 12:00 AM CYTOPATH C/V MANUAL Reviewed 04/01/2015 12:00 AM CHYLMD TRACH DNA AMP PROBE Reviewed 04/01/2015 12:00 AM N.GONORRHOEAE DNA AMP PROB Reviewed 04/01/2015 12:00 AM ASSAY OF TOTAL TESTOSTERONE Reviewed 06/11/2015 12:00 AM THER/PROPH/DIAG INJ SC/IM Reviewed 06/11/2015 12:00 AM Decadron, Per 1 Mg [facility]# [address]-56 Reviewed 06/11/2015 12:00 AM Depo-Medrol 40mg Reviewed [...] QUANT 0.34 C REACTIVE PROTEIN 16.0 mg/L History Of Immunizations Not available. History of [...] in partial remission Nov 16 2017 10:37AM Payers Insurance Name Company Name Plan Name Plan Number Policy Number Policy Group Number Start Date [employer]BS [employer] [place] [id number] N/A [employer] Employee Health Employee Benefit [id number] N/A [employer] Financial Assistance [employer] Eric 100 percent September [employer] [id number] N/A History of Encounters Visit Date Visit Type Provider 11/16/2017 Office visit Suki Ibrahim GLOBAL PRESIDENT 11/04/2017 Office visit Shanon Rodriguez GLOBAL PRESIDENT 10/14/2017 Office visit Suki Ibrahim GLOBAL PRESIDENT 09/28/2017 Office visit Shanon Rodriguez GLOBAL PRESIDENT 07/25/2017 Office visit Suki Ibrahim GLOBAL PRESIDENT 07/19/2017 Office visit Suki Ibrahim GLOBAL PRESIDENT 07/03/2017 Office visit Shanon Rodriguez GLOBAL PRESIDENT 05/16/2017 Office visit Suki Ibrahim GLOBAL PRESIDENT 03/22/2017 Office visit Suki Ibrahim GLOBAL PRESIDENT 01/19/2017 Office visit Suki Ibrahim GLOBAL PRESIDENT 12/14/2016 Office visit Suki Ibrahim GLOBAL PRESIDENT 09/16/2016 Office visit Suki Ibrahim GLOBAL PRESIDENT 09/05/2016 Office visit Morgan Lozano NP 11/10/2015 Office visit Suki Ibrahim GLOBAL PRESIDENT 10/30/2015 Office visit Suki Ibrahim GLOBAL PRESIDENT 10/09/2015 Office visit Suki Ibrahim GLOBAL PRESIDENT 09/29/2015 Office visit Suki Ibrahim GLOBAL PRESIDENT 07/04/2015 Office visit Linnette Connor GLOBAL PRESIDENT 06/11/2015 Office visit 06/11/2015 Office visit Suki Ibrahim GLOBAL PRESIDENT 04/15/2015 Office visit Suki Ibrahim GLOBAL PRESIDENT 04/07/2015 Office visit Linnette Connor GLOBAL PRESIDENT 04/06/2015 Office visit Frank Telles GLOBAL PRESIDENT 04/01/2015 Office visit Suki Ibrahim GLOBAL PRESIDENT 03/03/2015 Office visit 03/03/2015 Office visit Suki Ibrahim GLOBAL PRESIDENT 02/22/2015 Office visit Ty Childers PA-C 09/23/2014 Office visit Linnette Connor GLOBAL PRESIDENT 08/23/2014 Office visit Suki Ibrahim GLOBAL PRESIDENT 05/22/2012 Office visit Renato Francis MD 05/09/2012 Office visit Suki Ibrahim GLOBAL PRESIDENT 11/30/2011 Office visit Suki Ibrahim GLOBAL PRESIDENT 11/03/2011 Office visit Suki Ibrahim GLOBAL PRESIDENT 02/11/2010 Office visit Amalia KELLER 10/06/2009 Office visit Han Benavidez DO
--- OUTSIDE RECORDS SUMMARY | 2018-05-01 08:20 | XMS REPORT ---
Author Author Suki Ibrahim [facility] Address [address] [place], [place] [address] Care Team Providers Care High School French Teacher Name Role Phone Suki Ibrahim PCP Unavailable Allergies and Adverse Reactions Name Reaction Notes NO KNOWN DRUG ALLERGIES Plan of Treatment Not available. Medications Active Name Start Date Estimated Completion Date SIG Comments ibuprofen 800 mg oral tablet 12/17/2014 take 1 tablet by oral route 3 times a day as needed trazodone oral Sprintec (28) 0.25-35 mg-mcg oral tablet [...] once daily for 10 days sent to [facility] cyclobenzaprine oral 09/23/2014 citalopram 20 mg oral tablet 09/24/2014 02/22/2015 take 1/2 tablet (20 mg) by oral route once daily zolpidem 10 mg oral tablet 11/13/2014 02/22/2015 take 1 tablet (10 mg) by oral route once daily at bedtime Zoloft oral 10/09/2015 promethazine-codeine 6.25-10 mg/5 mL oral syrup 03/03/2015 04/01/2015 take 5 milliliters by oral route every 4-6 hours as needed, not to exceed 30 mL in 24 hours Problem List Description Status Onset Anemia Active Anxiety Active Asthma Active Vital Signs Date Time BP-Sys(mm[Hg] BP-Amanda(mm[Hg]) HR(bpm) RR(rpm) Temp WT HT HC BMI BSA BMI Percentile O2 Sat(%) 10/09/2015 8:41:00 AM 124 mmHg 64 mmHg [...] 09/23/2014 12:00 AM Decadron, Per 1 Mg [facility]# [address]-71 Reviewed 09/23/2014 12:00 AM Depo-Medrol 80 mg [facility]#[address]-39 Reviewed 03/03/2015 12:00 AM THER/PROPH/DIAG INJ SC/IM Reviewed 03/03/2015 12:00 AM Decadron, Per 1 Mg [facility]# [address]-67 Reviewed 03/03/2015 12:00 AM Depo-Medrol 40mg Reviewed 04/01/2015 12:00 AM CYTOPATH C/V MANUAL Returned 04/01/2015 12:00 AM CHYLMD TRACH DNA AMP PROBE Returned 04/01/2015 12:00 AM N.GONORRHOEAE DNA AMP PROB Returned 04/01/2015 12:00 AM ASSAY OF TOTAL TESTOSTERONE Returned 06/11/2015 12:00 AM THER/PROPH/DIAG INJ SC/IM Reviewed 06/11/2015 12:00 AM Decadron, Per 1 Mg [facility]# [address]-25 Reviewed 06/11/2015 12:00 AM Depo-Medrol 40mg Reviewed [...] Upper Respiratory Infections Feb 11 2010 9:19AM depression OCD Thyroid disorder Pharyngitis, Acute Nov 03 [...] 2015 1:42PM Anxiety Oct 09 2015 8:43AM Payers Insurance Name Company Name Plan Name Plan Number Policy Number Policy Group Number Start Date [facility] Financial Assistance [employer] Financial Eric [id number] N/A [employer] [id number] N/A [facility] Employee Health Employee Benefit [id number] N/A History of Encounters Visit Date Visit Type Provider 10/09/2015 Office visit Suki Ibrahim DATA REPORT ANALYST 09/29/2015 Office visit Suki Ibrahim DATA REPORT ANALYST 07/04/2015 Office visit Linnette Connor DATA REPORT ANALYST 06/11/2015 Office visit Suki Ibrahim DATA REPORT ANALYST 04/15/2015 Office visit Suki Ibrahim DATA REPORT ANALYST 04/07/2015 Office visit Linnette Connor DATA REPORT ANALYST 04/06/2015 Office visit Frank Telles DATA REPORT ANALYST 04/01/2015 Office visit Suki Ibrahim DATA REPORT ANALYST 03/03/2015 Office visit Suki Ibrahim DATA REPORT ANALYST 02/22/2015 Office visit Ty Childers PA-C 09/23/2014 Office visit Linnette Connor DATA REPORT ANALYST 08/23/2014 Office visit Suki Ibrahim DATA REPORT ANALYST 05/22/2012 Office visit Renato Francis MD 05/09/2012 Office visit Suki Ibrahim DATA REPORT ANALYST 11/30/2011 Office visit Suki Ibrahim DATA REPORT ANALYST 11/03/2011 Office visit Suki Ibrahim DATA REPORT ANALYST 02/11/2010 Office visit Amalia KELLER 10/06/2009 Office visit Han Benavidez DO
--- OUTSIDE RECORDS SUMMARY | 2018-05-01 08:21 | XMS REPORT ---
Author Author Linnette Connor [facility] Address [address] [place], [place] [address] Care Team Providers Care Duck Bill Operator Name Role Phone Linnette Connor PCP [...] once daily for 10 days sent to [facility] cyclobenzaprine oral 09/23/2014 citalopram 20 [...] 12:00 AM ASSAY THYROID STIM HORMONE Returned 11/30/2011 12:00 AM COMPLETE CBC W/AUTO [...] 09/23/2014 12:00 AM Decadron, Per 1 Mg [facility]# [address]-04 Reviewed 09/23/2014 12:00 AM Depo-Medrol 80 mg ND#[address]-20 Reviewed 03/03/2015 12:00 AM THER/PROPH/DIAG INJ SC/IM Reviewed 03/03/2015 12:00 AM Decadron, Per 1 Mg [facility]# [address]-15 Reviewed 03/03/2015 12:00 AM Depo-Medrol 40mg Reviewed 04/01/2015 12:00 AM CYTOPATH C/V MANUAL Returned 04/01/2015 12:00 AM CHYLMD TRACH DNA AMP PROBE Returned 04/01/2015 12:00 AM N.GONORRHOEAE DNA AMP PROB Returned 04/01/2015 12:00 AM ASSAY OF TOTAL TESTOSTERONE Returned 06/11/2015 12:00 AM THER/PROPH/DIAG INJ SC/IM Reviewed 06/11/2015 12:00 AM Decadron, Per 1 Mg [facility]# [address]-77 Reviewed 06/11/2015 12:00 AM Depo-Medrol 40mg Reviewed [...] ng/dL 09/25/2015 1:28 PM TSH 2.0 uIU/mL History Of Immunizations Not available. History of [...] 9:18AM Hypothyroidism, Acquired Sep 22 2015 4:44PM Payers Insurance Name Company Name Plan Name Plan Number Policy Number Policy Group Number Start Date [employer] Financial Assistance [employer] Eric [id number] N/A [facility] [employer] [id number] N/A [employer] Employee [employer] Employee Benefit [id number] N/A History of Encounters Visit Date Visit Type Provider 07/04/2015 Office visit Linnette Connor GL ACCOUNTANT 06/11/2015 Office visit Suki Ibrahim GL ACCOUNTANT 04/15/2015 Office visit Suki Ibrahim GL ACCOUNTANT 04/07/2015 Office visit Linnette Connor GL ACCOUNTANT 04/06/2015 Office visit Frank Telles GL ACCOUNTANT 04/01/2015 Office visit Suki Ibrahim GL ACCOUNTANT 03/03/2015 Office visit Suki Ibrahim GL ACCOUNTANT 02/22/2015 Office visit Ty Childers PA-C 09/23/2014 Office visit Linnette Connor GL ACCOUNTANT 08/23/2014 Office visit Suki Ibrahim GL ACCOUNTANT 05/22/2012 Office visit Renato Francis MD 05/09/2012 Office visit Suki Ibrhaim GL ACCOUNTANT 11/30/2011 Office visit Suki Ibrahim GL ACCOUNTANT 11/03/2011 Office visit Suki Ibrahim GL ACCOUNTANT 02/11/2010 Office visit Amalia KELLER 10/06/2009 Office visit Han Benavidez DO
--- OUTSIDE RECORDS SUMMARY | 2018-05-01 08:22 | XMS REPORT ---
Author Author Shanon Rodriguez Organization [facility] Address [address] [place], [place] [address] Care Team Providers Care Temperer Name Role Phone Shanon Rodriguez PCP Suki Ibrahim PreferredProvider Allergies and Adverse Reactions Name Reaction Notes NO KNOWN DRUG ALLERGIES Plan of Treatment Planned Activity Comments Planned Date Planned Time Plan/Goal SED RATE 03/24/2017 12:00 AM T4 06/10/2017 12:00 AM Nuclear Medicine Thyroid Imaging 10/05/2017 12:00 AM CRP 07/25/2017 12:00 AM Medications Active Name Start Date [...] oral route once daily for 30 days Name Start Date Expiration [...] route every 12 hours for 7 days Tesdania Perles 100 mg oral capsule 07/03/2017 take [...] once daily for 10 days sent to [facility] cyclobenzaprine oral 09/23/2014 citalopram [...] HC BMI BSA BMI Percentile O2 Sat(%) 11/04/2017 7:12:00 PM 118 mmHg 80 mmHg [...] 12:00 AM Bicillin CR, 1.2 million units [facility]# 95[address]-913-60 Reviewed 11/30/2011 12:00 AM COMPLETE CBC W/AUTO [...] 09/23/2014 12:00 AM Decadron, Per 1 Mg [facility]# [address]-92 Reviewed 09/23/2014 12:00 AM Depo-Medrol 80 mg ND#[address]-44 Reviewed 03/03/2015 12:00 AM THER/PROPH/DIAG INJ SC/IM Reviewed 03/03/2015 12:00 AM Decadron, Per 1 Mg [facility]# [address]-98 Reviewed 03/03/2015 12:00 AM Depo-Medrol 40mg Reviewed 04/01/2015 12:00 AM CYTOPATH C/V MANUAL Reviewed 04/01/2015 12:00 AM CHYLMD TRACH DNA AMP PROBE Reviewed 04/01/2015 12:00 AM N.GONORRHOEAE DNA AMP PROB Reviewed 04/01/2015 12:00 AM ASSAY OF TOTAL TESTOSTERONE Reviewed 06/11/2015 12:00 AM THER/PROPH/DIAG INJ SC/IM Reviewed 06/11/2015 12:00 AM Decadron, Per 1 Mg [facility]# [address]-41 Reviewed 06/11/2015 12:00 AM Depo-Medrol 40mg Reviewed [...] Chronic idiopathic constipation Oct 14 2017 8:16AM Payers Insurance Name Company Name Plan Name Plan Number Policy Number Policy Group Number Start Date [facility] [id number] N/A [employer] Employee Health Employee Benefit [id number] N/A [employer] Financial Assistance [employer] Financial Eric 100 percent September [employer] [id number] N/A History of Encounters Visit Date Visit Type Provider 11/04/2017 Office visit Shanon Rodriguez FIRE INFORMATION OFFICER 10/14/2017 Office visit Suki Ibrahim FIRE INFORMATION OFFICER 09/28/2017 Office visit Shanon Rodriguez FIRE INFORMATION OFFICER 07/25/2017 Office visit Suki Ibrahim FIRE INFORMATION OFFICER 07/19/2017 Office visit Suki Ibrahim FIRE INFORMATION OFFICER 07/03/2017 Office visit Shanon Rodriguez FIRE INFORMATION OFFICER 05/16/2017 Office visit Suki Ibrahim FIRE INFORMATION OFFICER 03/22/2017 Office visit Suki Ibrahim FIRE INFORMATION OFFICER 01/19/2017 Office visit Suki Walker FIRE INFORMATION OFFICER 12/14/2016 Office visit Suki Walker FIRE INFORMATION OFFICER 09/16/2016 Office visit Suki Walker FIRE INFORMATION OFFICER 09/05/2016 Office visit Morgan Lozano NP 11/10/2015 Office visit Suki Walker FIRE INFORMATION OFFICER 10/30/2015 Office visit Suki Walker FIRE INFORMATION OFFICER 10/09/2015 Office visit Suki Walker FIRE INFORMATION OFFICER 09/29/2015 Office visit Suki Patrice FIRE INFORMATION OFFICER 07/04/2015 Office visit Linnette Connor FIRE INFORMATION OFFICER 06/11/2015 Office visit 06/11/2015 Office visit Suki Patrice FIRE INFORMATION OFFICER 04/15/2015 Office visit Suki Patrice FIRE INFORMATION OFFICER 04/07/2015 Office visit Linnette Connor FIRE INFORMATION OFFICER 04/06/2015 Office visit Frank Telles FIRE INFORMATION OFFICER 04/01/2015 Office visit Suki Ibrahim FIRE INFORMATION OFFICER 03/03/2015 Office visit 03/03/2015 Office visit Suki Ibrahim FIRE INFORMATION OFFICER 02/22/2015 Office visit Ty Childers PA-C 09/23/2014 Office visit Linnette Connor FIRE INFORMATION OFFICER 08/23/2014 Office visit Suki Ibrahim FIRE INFORMATION OFFICER 05/22/2012 Office visit Renato Francis MD 05/09/2012 Office visit Suki Ibrahim FIRE INFORMATION OFFICER 11/30/2011 Office visit Suki Walker FIRE INFORMATION OFFICER 11/03/2011 Office visit Suki Walker FIRE INFORMATION OFFICER 02/11/2010 Office visit Amalia KELLER 10/06/2009 Office visit Han Benavidez DO
--- OUTSIDE RECORDS SUMMARY | 2018-05-01 08:22 | XMS REPORT ---
Author Author Suki Ibrahim [facility] Address [address] [place], [place] [id number] Care Team Providers Care Salt Manager Name Role Phone Suki Ibrahim PCP Unavailable [...] TAKE ONE TABLET BY MOUTH ONCE DAILY Flonase Allergy Relief 50 mcg/actuation nasal spray,suspension 10/30/2015 inhale 1 puff by nasal route 2 times a day Claritin 10 mg oral tablet 10/30/2015 take 1 tablet (10 mg) by oral route once daily Sudafed 12 Hour 120 mg oral tablet extended release 10/30/2015 take 1 tablet by oral route every 12 hours as needed Singulair 10 mg oral tablet 10/30/2015 take 1 tablet (10 mg) by oral route once daily in the evening Brintellix 10 mg oral tablet 10/30/2015 take 1 tablet (10 mg) by oral route once daily at the same time each day promethazine-codeine 6.25-10 mg/5 mL oral syrup 11/13/2015 take 5 milliliters by oral route every 6 hours as needed, not to exceed 30 mL in 24 hours levothyroxine 50 mcg oral tablet 02/11/2016 TAKE ONE TABLET BY MOUTH ONCE DAILY levothyroxine 50 mcg oral tablet 05/25/2016 TAKE ONE TABLET BY MOUTH ONCE DAILY prednisone 20 mg oral tablet 09/16/2016 09/21/2016 take 1 tablet by oral route daily for 5 days Name Start Date Expiration Date SIG [...] route every 12 hours for 10 days Discontinued Name Start Date Discontinued Date [...] once daily for 10 days sent to [facility] cyclobenzaprine oral 09/23/2014 citalopram 20 mg oral [...] each nostril by intranasal route once daily Problem List Description Status Onset Anemia Active Anxiety Active Asthma Active Allergic rhinitis, unspecified allergic rhinitis type Active 10/30/2015 Anxiety Active 10/30/2015 Vital Signs Date Time BP-Sys(mm[Hg] BP-Amanda(mm[Hg]) HR(bpm) RR(rpm) Temp WT HT HC BMI BSA BMI Percentile O2 Sat(%) 09/16/2016 2:01:00 PM 100 mmHg 68 mmHg [...] 12:00 AM GLUCOSE TOLERANCE TEST (GTT) Returned 11/10/2015 12:00 AM Bicillin CR, 1.2 million units [facility]# 73185-485-14 Reviewed 11/30/2011 12:00 AM COMPLETE CBC W/AUTO [...] 09/23/2014 12:00 AM Decadron, Per 1 Mg [facility]# [address]-05 Reviewed 09/23/2014 12:00 AM Depo-Medrol 80 mg [facility]#[address]-86 Reviewed 03/03/2015 12:00 AM THER/PROPH/DIAG INJ SC/IM Reviewed 03/03/2015 12:00 AM Decadron, Per 1 Mg [facility]# [address]-04 Reviewed 03/03/2015 12:00 AM Depo-Medrol 40mg Reviewed 04/01/2015 12:00 AM CYTOPATH C/V MANUAL Returned 04/01/2015 12:00 AM CHYLMD TRACH DNA AMP PROBE Returned 04/01/2015 12:00 AM N.GONORRHOEAE DNA AMP PROB Returned 04/01/2015 12:00 AM ASSAY OF TOTAL TESTOSTERONE Returned 06/11/2015 12:00 AM THER/PROPH/DIAG INJ SC/IM Reviewed 06/11/2015 12:00 AM Decadron, Per 1 Mg [facility]# [address]-26 Reviewed 06/11/2015 12:00 AM Depo-Medrol 40mg Reviewed [...] unspecified allergic rhinitis type 10/30/2015 Anxiety 10/30/2015 Pharyngitis, Acute Nov 03 2011 10:06AM Fatigue [...] maxillary sinusitis, chronic Sep 16 2016 2:06PM Payers Insurance Name Company Name Plan Name Plan Number Policy Number Policy Group Number Start Date [employer] Employee [employer] Employee Benefit [id number] N/A [employer] Financial Assistance [employer] Eric [id number] N/A [employer] [id number] N/A History of Encounters Visit Date Visit Type Provider 09/16/2016 Office visit Suik Ibrahim APRN 09/05/2016 Office visit Morgan Lozano NP 11/10/2015 Office visit Suki Ibrahim ZINC PLATER 10/30/2015 Office visit Suki Ibrahim APRN 10/09/2015 Office visit Suki Ibrahim APRN 09/29/2015 Office visit Suki Ibrahim ZINC PLATER 07/04/2015 Office visit Linnette Connor ZINC PLATER 06/11/2015 Office visit 06/11/2015 Office visit Suki Ibrahim ZINC PLATER 04/15/2015 Office visit Suki Ibrahim ZINC PLATER 04/07/2015 Office visit Linnette Connor ZINC PLATER 04/06/2015 Office visit Frank Telles ZINC PLATER 04/01/2015 Office visit Suki Ibrahim ZINC PLATER 03/03/2015 Office visit 03/03/2015 Office visit Suki Ibrahim ZINC PLATER 02/22/2015 Office visit Ty Childers PA-C 09/23/2014 Office visit Linnette Connor ZINC PLATER 08/23/2014 Office visit Suki Ibrahim ZINC PLATER 05/22/2012 Office visit Renato Francis MD 05/09/2012 Office visit Suki Ibrahim ZINC PLATER 11/30/2011 Office visit Suki Ibrahim ZINC PLATER 11/03/2011 Office visit Suki Ibrahim ZINC PLATER 02/11/2010 Office visit Amalia KELLER 10/06/2009 Office visit Han Benavidez DO
--- OUTSIDE RECORDS SUMMARY | 2018-05-01 08:23 | XMS REPORT ---
Author Author Han Benavidez [facility] Address [address] [place], [place] [address] Care Team Providers Care Actuary Clerk Name Role Phone Han Benavidez PCP Unavailable Allergies and Adverse Reactions Name Reaction Notes NO KNOWN DRUG ALLERGIES Plan of Treatment Planned Activity Comments Planned Date Planned Time Plan/Goal CYTOPATH C/V MANUAL 04/01/2015 12:00 AM Medications Active Name Start Date Estimated Completion Date SIG Comments levothyroxine oral tablet 50 mcg 09/23/2014 take 1 tablet by oral route daily ibuprofen oral tablet 800 mg 12/17/2014 take 1 tablet by oral route 3 times a day as needed trazodone oral Zoloft oral Zyrtec-D oral tablet extended release 12 hr 5-120 mg 04/01/2015 take 1 tablet by oral route every 12 hours Sprintec (28) oral tablet 0.25-35 mg-mcg 04/01/2015 take 1 tablet by oral route once daily Name Start Date Expiration Date SIG Comments Amoxil Oral Capsule 500 mg 02/11/2010 02/21/2010 take 1 capsule (500 mg) by oral route every 12 hours for 10 days amoxicillin Oral Tablet 500 mg 11/03/2011 11/10/2011 take 2 tablets by mouth BID x7 days. estradiol Oral tablet 1 mg 07/27/2012 08/06/2012 take 1 tablet (1 mg) by oral route once daily for 10 days amoxicillin oral capsule 500 mg 02/22/2015 03/04/2015 take 1 capsule (500 mg) by oral route every 12 hours for 10 days Discontinued Name Start Date Discontinued Date SIG Comments Ventolin HFA Inhalation Aerosol Inhaler 90 mcg/Actuation 02/11/2010 08/23/2014 inhale 1 - 2 puffs by inhalation route every 4-6 hours as needed Promethazine-Codeine Oral Syrup 6.25-10 mg/5 mL 02/11/2010 11/03/2011 take 5 milliliters by oral route every 6 hours as needed, not to exceed 30 mL in 24 hours Zoloft Oral 08/23/2014 trazodone Oral 09/23/2014 estradiol Oral tablet 1 mg 07/27/2012 07/27/2012 take 1 tablet (1 mg) by oral route once daily for 10 days sent to [facility] cyclobenzaprine oral 09/23/2014 citalopram oral tablet 20 mg 09/24/2014 02/22/2015 take 1/2 tablet (20 mg) by oral route once daily zolpidem oral tablet 10 mg 11/13/2014 02/22/2015 take 1 tablet (10 mg) by oral route once daily at bedtime promethazine-codeine oral syrup 6.25-10 mg/5 mL 03/03/2015 04/01/2015 take 5 milliliters by oral route every 4-6 hours as needed, not to exceed 30 mL in 24 hours Problem List Description Status Onset Anemia Active Anxiety Active Asthma Active Vital Signs Date Time BP-Sys(mm[Hg] BP-Amanda(mm[Hg]) HR(bpm) RR(rpm) Temp WT HT HC BMI BSA BMI Percentile O2 Sat(%) 04/01/2015 10:19:00 AM 118 mmHg 72 mmHg [...] Description Comments Tobacco Never smoker Dating Alcohol Socially UNEMPLOYEED History of Procedures Date Ordered [...] DRUG IMPLANT DEVICE Reviewed 05/22/2012 12:00 AM URINE TEST Reviewed 08/23/2014 12:00 AM COMPLETE CBC W/AUTO DIFF WBC Returned 08/23/2014 12:00 AM COMPREHEN METABOLIC PANEL Returned 08/23/2014 12:00 AM ASSAY THYROID STIM HORMONE Returned 09/23/2014 12:00 AM THER/PROPH/DIAG INJ SC/IM Reviewed 03/03/2015 12:00 AM THER/PROPH/DIAG INJ SC/IM Reviewed 04/01/2015 12:00 AM ASSAY OF TOTAL TESTOSTERONE Returned Results Summary Data and Description Results [...] mg/dLCALCIUM 9.0 mg/dLeGFR 60 TSH 1.240 uIU/mL History Of Immunizations Not available. History [...] 2015 10:22AM Hirsutism Apr 01 2015 10:22AM Payers Insurance Name Company Name Plan Name Plan Number Policy Number Policy Group Number Start Date [employer] Employee Health Employee Benefit [id number] N/A [employer] Financial Assistance [employer] Financial Eric [id number] N/A History of Encounters Visit Date Visit Type Provider 04/01/2015 Office visit Suki Ibrahim DIETARY SERVER 03/03/2015 Office visit Suki Ibrahim DIETARY SERVER 02/22/2015 Office visit Ty Childers PA-C 09/23/2014 Office visit Linnette Connor DIETARY SERVER 08/23/2014 Office visit Suki Ibrahim DIETARY SERVER 05/22/2012 Office visit Renato Francis MD 05/09/2012 Office visit Suki Ibrahim DIETARY SERVER 11/30/2011 Office visit Suki Ibrahim DIETARY SERVER 11/03/2011 Office visit Suki Ibrahim DIETARY SERVER 02/11/2010 Office visit Amalia KELLER 10/06/2009 Office visit Han Benavidez DO
--- OUTSIDE RECORDS SUMMARY | 2018-05-01 08:23 | XMS REPORT ---
Author Author Suki Ibrahim Organization [facility] Address [address] [place], [place] [address] Care Team Providers Care Gas Station Service Attendant Name Role Phone Suki Ibrahim PCP Unavailable [...] daily for 10 days sent to [facility] cyclobenzaprine oral 09/23/2014 citalopram 20 mg oral [...] 12:00 AM Decadron, Per 1 Mg [facility]# [address]-40 Reviewed 09/23/2014 12:00 AM Depo-Medrol 80 mg [facility]#[address]-74 Reviewed 03/03/2015 12:00 AM THER/PROPH/DIAG INJ SC/IM Reviewed 03/03/2015 12:00 AM Decadron, Per 1 Mg [facility]# [address]-76 Reviewed 03/03/2015 12:00 AM Depo-Medrol 40mg Reviewed 04/01/2015 12:00 AM CYTOPATH C/V MANUAL Returned 04/01/2015 12:00 AM CHYLMD TRACH DNA AMP PROBE Returned 04/01/2015 12:00 AM N.GONORRHOEAE DNA AMP PROB Returned 04/01/2015 12:00 AM ASSAY OF TOTAL TESTOSTERONE Returned 06/11/2015 12:00 AM THER/PROPH/DIAG INJ SC/IM Reviewed 06/11/2015 12:00 AM Decadron, Per 1 Mg [facility]# [address]-17 Reviewed 06/11/2015 12:00 AM Depo-Medrol 40mg Reviewed [...] Policy Number Policy Group Number Start Date [place] [employer] Financial Assistance [place] [employer] Eric [id number] N/A [facility] [employer] [id number] N/A [facility] [employer] Employee Health Employee Benefit [id number] N/A History of Encounters Visit Date Visit Type Provider 09/29/2015 Office visit Suki Ibrahim SUPERVISOR BRINE 07/04/2015 Office visit Linnette Connor SUPERVISOR BRINE 06/11/2015 Office visit Suki Ibrahim SUPERVISOR BRINE 04/15/2015 Office visit Suki Ibrahim SUPERVISOR BRINE 04/07/2015 Office visit Linnette Connor SUPERVISOR BRINE 04/06/2015 Office visit Frank Telles SUPERVISOR BRINE 04/01/2015 Office visit Suki Ibrahim SUPERVISOR BRINE 03/03/2015 Office visit Suki Ibrahim SUPERVISOR BRINE 02/22/2015 Office visit Ty Childers PA-C 09/23/2014 Office visit Linnette Connor SUPERVISOR BRINE 08/23/2014 Office visit Suki Ibrahim SUPERVISOR BRINE 05/22/2012 Office visit Renato Francis MD 05/09/2012 Office visit Suki Ibrahim SUPERVISOR BRINE 11/30/2011 Office visit Suki Ibrahim SUPERVISOR BRINE 11/03/2011 Office visit Suki Ibrahim SUPERVISOR BRINE 02/11/2010 Office visit Amalia KELLER 10/06/2009 Office visit Han Benavidez DO
--- OUTSIDE RECORDS SUMMARY | 2018-05-01 08:24 | XMS REPORT ---
Author Author Han Benavidez [facility] Address [address] [place], [place] [address] Care Team Providers Care Mechanical Maintenance Supervisor Name Role Phone Han Benavidez PCP Unavailable Allergies and Adverse Reactions Name Reaction Notes NO KNOWN DRUG ALLERGIES Plan of Treatment Not available. Medications Active Name Start Date Estimated Completion Date SIG Comments ibuprofen oral tablet 800 mg 12/17/2014 take 1 tablet by oral route 3 times a day as needed trazodone oral Zoloft oral Sprintec (28) oral tablet 0.25-35 mg-mcg 04/01/2015 take 1 tablet by oral route once daily Singulair oral tablet 10 mg 06/11/2015 12/08/2015 take 1 tablet (10 mg) by oral route once daily in the evening for 30 days levothyroxine oral tablet 50 mcg 06/11/2015 take 1 tablet by oral route daily prednisone oral tablet 5 mg 07/04/2015 take 4 tablets (20 mg) by oral route once daily for 5 days Name Start Date [...] every 12 hours for 10 days Zyrtec-D oral tablet extended release 12 hr 5-120 mg 04/01/2015 take 1 tablet by oral route every 12 hours Medrol (Cale) oral tablets,dose pack 4 mg 04/07/2015 take as directed Flonase Allergy Relief nasal spray,suspension 50 mcg/actuation 04/16/2015 inhale 1 puff by nasal route 2 times a day Bactrim DS oral tablet 800-160 mg 06/11/2015 06/25/2015 take 1 tablet by oral [...] for 10 days sent to [facility] cyclobenzaprine oral 09/23/2014 citalopram oral tablet [...] 12:00 AM Decadron, Per 1 Mg [facility]# [address]-47 Reviewed 09/23/2014 12:00 AM Depo-Medrol 80 mg [facility]#[address]-79 Reviewed 03/03/2015 12:00 AM THER/PROPH/DIAG INJ SC/IM Reviewed 03/03/2015 12:00 AM Decadron, Per 1 Mg [facility]# [address]-76 Reviewed 03/03/2015 12:00 AM Depo-Medrol 40mg Reviewed 04/01/2015 12:00 AM CYTOPATH C/V MANUAL Returned 04/01/2015 12:00 AM CHYLMD TRACH DNA AMP PROBE Returned 04/01/2015 12:00 AM N.GONORRHOEAE DNA AMP PROB Returned 04/01/2015 12:00 AM ASSAY OF TOTAL TESTOSTERONE Returned 06/11/2015 12:00 AM THER/PROPH/DIAG INJ SC/IM Reviewed 06/11/2015 12:00 AM Decadron, Per 1 Mg [facility]# [address]-80 Reviewed 06/11/2015 12:00 AM Depo-Medrol 40mg Reviewed [...] Policy Number Policy Group Number Start Date [place] [employer] Financial Assistance [place] [employer] Financial Eric [id number] N/A [facility] [id number] N/A [employer] Employee Health Employee Benefit [id number] N/A History of Encounters Visit Date Visit Type Provider 07/04/2015 Office visit Linnette Connor APRN 06/11/2015 Office visit Suki Ibrahim VESSEL CREW MEMBER 04/15/2015 Office visit Suki Ibrahim VESSEL CREW MEMBER 04/07/2015 Office visit Linnette Connor VESSEL CREW MEMBER 04/06/2015 Office visit Frank Telles VESSEL CREW MEMBER 04/01/2015 Office visit Suki Ibrahim VESSEL CREW MEMBER 03/03/2015 Office visit Suki Ibrahim VESSEL CREW MEMBER 02/22/2015 Office visit Ty Childers PA-C 09/23/2014 Office visit Linnette Connor VESSEL CREW MEMBER 08/23/2014 Office visit Suki Ibrahim VESSEL CREW MEMBER 05/22/2012 Office visit Renato Francis MD 05/09/2012 Office visit Suki Ibrahim VESSEL CREW MEMBER 11/30/2011 Office visit Suki Ibrahim VESSEL CREW MEMBER 11/03/2011 Office visit uSki Ibrahim VESSEL CREW MEMBER 02/11/2010 Office visit Amalia KELLER 10/06/2009 Office visit Han Benavidez DO
--- OUTSIDE RECORDS SUMMARY | 2018-05-01 08:25 | XMS REPORT ---
Author Author Familia Key [facility] Address [address] [place], [place] [address] Care Team Providers Care Shoe Salesperson Name Role Phone Familia Key PCP Suki [...] once daily for 10 days sent to [facility] cyclobenzaprine oral 09/23/2014 citalopram 20 mg oral [...] 12:00 AM Bicillin CR, 1.2 million units [facility]# 35657-802-07 Reviewed 11/30/2011 12:00 AM COMPLETE CBC W/AUTO [...] 09/23/2014 12:00 AM Decadron, Per 1 Mg [facility]# [address]-50 Reviewed 09/23/2014 12:00 AM Depo-Medrol 80 mg [facility]#[address]-74 Reviewed 03/03/2015 12:00 AM THER/PROPH/DIAG INJ SC/IM Reviewed 03/03/2015 12:00 AM Decadron, Per 1 Mg [facility]# [address]-03 Reviewed 03/03/2015 12:00 AM Depo-Medrol 40mg Reviewed 04/01/2015 12:00 AM CYTOPATH C/V MANUAL Reviewed 04/01/2015 12:00 AM CHYLMD TRACH DNA AMP PROBE Reviewed 04/01/2015 12:00 AM N.GONORRHOEAE DNA AMP PROB Reviewed 04/01/2015 12:00 AM ASSAY OF TOTAL TESTOSTERONE Reviewed 06/11/2015 12:00 AM THER/PROPH/DIAG INJ SC/IM Reviewed 06/11/2015 12:00 AM Decadron, Per 1 Mg [facility]# [address]-31 Reviewed 06/11/2015 12:00 AM Depo-Medrol 40mg Reviewed [...] Neoplasm Of Scalp Dec 27 2017 1:55PM Payers Insurance Name Company Name Plan Name Plan Number Policy Number Policy Group Number Start Date [employer] [place] [id number] N/A [employer] Employee Health Employee Benefit [id number] N/A [employer] Financial Assistance [facility] Financial Eric 100 percent September [employer] [id number] N/A History of Encounters Visit Date Visit Type Provider 12/27/2017 Procedures Familia Key MD 12/26/2017 Office visit Suki Ibrahim MEDICAL RECORDS TECHNICIAN 12/19/2017 Office visit Deisy aGrnett MD 11/16/2017 Office visit Suki Ibrahim MEDICAL RECORDS TECHNICIAN 11/04/2017 Office visit Shanon Rodriguez MEDICAL RECORDS TECHNICIAN 10/14/2017 Office visit Suki Ibrahim MEDICAL RECORDS TECHNICIAN 09/28/2017 Office visit Shanon Rodriguez MEDICAL RECORDS TECHNICIAN 07/25/2017 Office visit Suki Ibrahim MEDICAL RECORDS TECHNICIAN 07/19/2017 Office visit Suki Ibrahim MEDICAL RECORDS TECHNICIAN 07/03/2017 Office visit Shanon Rodriguez MEDICAL RECORDS TECHNICIAN 05/16/2017 Office visit Suki Ibrahim MEDICAL RECORDS TECHNICIAN 03/22/2017 Office visit Suki Ibrahim MEDICAL RECORDS TECHNICIAN 01/19/2017 Office visit Suki Ibrahim MEDICAL RECORDS TECHNICIAN 12/14/2016 Office visit Suki Ibrahim MEDICAL RECORDS TECHNICIAN 09/16/2016 Office visit Suki Ibrahim MEDICAL RECORDS TECHNICIAN 09/05/2016 Office visit Morgan Lozano NP 11/10/2015 Office visit Suki Ibrahim MEDICAL RECORDS TECHNICIAN 10/30/2015 Office visit Suki Ibrahim MEDICAL RECORDS TECHNICIAN 10/09/2015 Office visit Suki Ibrahim MEDICAL RECORDS TECHNICIAN 09/29/2015 Office visit Suki Ibrahim MEDICAL RECORDS TECHNICIAN 07/04/2015 Office visit Linnette Connor MEDICAL RECORDS TECHNICIAN 06/11/2015 Office visit 06/11/2015 Office visit Suki Ibrahim MEDICAL RECORDS TECHNICIAN 04/15/2015 Office visit Suki Ibrahim MEDICAL RECORDS TECHNICIAN 04/07/2015 Office visit Linnette Connor MEDICAL RECORDS TECHNICIAN 04/06/2015 Office visit Frank Telles MEDICAL RECORDS TECHNICIAN 04/01/2015 Office visit Suki Ibrahim MEDICAL RECORDS TECHNICIAN 03/03/2015 Office visit 03/03/2015 Office visit Suki Ibrahim MEDICAL RECORDS TECHNICIAN 02/22/2015 Office visit Ty Childers PA-C 09/23/2014 Office visit Linnette oCnnor MEDICAL RECORDS TECHNICIAN 08/23/2014 Office visit Suki Ibrahim MEDICAL RECORDS TECHNICIAN 05/22/2012 Office visit Renato Francis MD 05/09/2012 Office visit Suki Ibrahim MEDICAL RECORDS TECHNICIAN 11/30/2011 Office visit Suki Ibrahim APRN 11/03/2011 Office visit Suki Ibrahim APRN 02/11/2010 Office visit Amalia KELLER 10/06/2009 Office visit Han Benavidez DO
--- OUTSIDE RECORDS SUMMARY | 2018-05-01 08:25 | XMS REPORT ---
Author Author Shanon Rodriguez [facility] Address [address] [place], [place] [address] Care Team Providers Care Room Service Food Server Name Role Phone Shanon Rodriguez PCP Unavailable Suki Ibrahim PreferredProvider Unavailable Allergies and Adverse Reactions Name Reaction Notes NO KNOWN DRUG ALLERGIES Plan of Treatment Planned Activity Comments Planned Date Planned Time Plan/Goal SED RATE 03/24/2017 12:00 AM T4 06/10/2017 12:00 AM CRP 07/25/2017 12:00 AM Nuclear Medicine Thyroid Imaging 10/05/2017 12:00 AM Medications Active Name Start Date [...] oral route once daily for 30 days Singulair 10 mg oral tablet 08/17/2017 02/13/2018 take 1 tablet (10 mg) by oral route once daily in the evening Name Start Date Expiration Date SIG Comments [...] per day in the morning and evening Discontinued Name Start Date Discontinued Date [...] days sent to [facility] cyclobenzaprine oral 09/23/2014 citalopram 20 mg oral [...] HC BMI BSA BMI Percentile O2 Sat(%) 09/28/2017 1:58:00 PM 128 mmHg 84 mmHg [...] 12:00 AM Bicillin CR, 1.2 million units [facility]# 06027-425-15 Reviewed 11/30/2011 12:00 AM COMPLETE CBC W/AUTO [...] 06/10/2017 12:00 AM FREE ASSAY (FT-3) Reviewed 07/25/2017 12:00 AM COMPLETE CBC W/AUTO DIFF WBC Reviewed 07/25/2017 12:00 AM FIBRIN DEGRADE SEMIQUANT Reviewed 07/25/2017 12:00 AM CHEST X-RAY 2VW FRONTAL&LATL Reviewed 07/03/2017 12:00 AM THER/PROPH/DIAG INJ SC/IM Reviewed 07/03/2017 12:00 AM Depo-Medrol 40mg Injection Reviewed 07/03/2017 12:00 AM Decadron 4mg Injection Reviewed 09/28/2017 12:00 AM US EXAM OF HEAD AND NECK Returned 08/23/2014 12:00 AM COMPLETE CBC W/AUTO DIFF WBC Reviewed 08/23/2014 12:00 AM COMPREHEN METABOLIC PANEL Reviewed 08/23/2014 12:00 AM ASSAY THYROID STIM HORMONE Reviewed 09/23/2014 12:00 AM THER/PROPH/DIAG INJ SC/IM Reviewed 09/23/2014 12:00 AM Decadron, Per 1 Mg [facility]# [address]-95 Reviewed 09/23/2014 12:00 AM Depo-Medrol 80 mg [facility]#[address]-65 Reviewed 03/03/2015 12:00 AM THER/PROPH/DIAG INJ SC/IM Reviewed 03/03/2015 12:00 AM Decadron, Per 1 Mg [facility]# [address]-41 Reviewed 03/03/2015 12:00 AM Depo-Medrol 40mg Reviewed 04/01/2015 12:00 AM CYTOPATH C/V MANUAL Reviewed 04/01/2015 12:00 AM CHYLMD TRACH DNA AMP PROBE Reviewed 04/01/2015 12:00 AM N.GONORRHOEAE DNA AMP PROB Reviewed 04/01/2015 12:00 AM ASSAY OF TOTAL TESTOSTERONE Reviewed 06/11/2015 12:00 AM THER/PROPH/DIAG INJ SC/IM Reviewed 06/11/2015 12:00 AM Decadron, Per 1 Mg [facility]# [address]-71 Reviewed 06/11/2015 12:00 AM Depo-Medrol 40mg Reviewed [...] 2:21PM Thyroid cyst Oct 05 2017 2:21PM Payers Insurance Name Company Name Plan Name Plan Number Policy Number Policy Group Number Start Date BCBS [facility] [id number] N/A [employer] Employee Health Employee Benefit [id number] N/A [employer] Financial Assistance [email or web address] Financial Eric 100 percent September [facility] [employer] [facility] [id number] N/A History of Encounters Visit Date Visit Type Provider 09/28/2017 Office visit Shanon Rodriguez APRN 07/25/2017 Office visit Suki Ibrahim FLAT SHEET MAKER 07/19/2017 Office visit Suki Ibrahim FLAT SHEET MAKER 07/03/2017 Office visit Shanon Rodriguez FLAT SHEET MAKER 05/16/2017 Office visit Suki Ibrahim FLAT SHEET MAKER 03/22/2017 Office visit Suki Ibrahim APRN 01/19/2017 Office visit Suki Ibrahim FLAT SHEET MAKER 12/14/2016 Office visit Suki Ibrahim APRN 09/16/2016 Office visit Suki Ibrahim FLAT SHEET MAKER 09/05/2016 Office visit Morgan Lozano NP 11/10/2015 Office visit Suki Ibrahim FLAT SHEET MAKER 10/30/2015 Office visit Suki bIrahim FLAT SHEET MAKER 10/09/2015 Office visit Suki Ibrahim FLAT SHEET MAKER 09/29/2015 Office visit Suki Ibrahim FLAT SHEET MAKER 07/04/2015 Office visit Linnette Connor FLAT SHEET MAKER 06/11/2015 Office visit 06/11/2015 Office visit Suki Ibrahim FLAT SHEET MAKER 04/15/2015 Office visit Suki Ibrahim FLAT SHEET MAKER 04/07/2015 Office visit Linnette Connor FLAT SHEET MAKER 04/06/2015 Office visit Frank Telles FLAT SHEET MAKER 04/01/2015 Office visit Suki Ibrahim FLAT SHEET MAKER 03/03/2015 Office visit 03/03/2015 Office visit Suki Ibrahim FLAT SHEET MAKER 02/22/2015 Office visit yT Childers PA-C 09/23/2014 Office visit Linnette Connor FLAT SHEET MAKER 08/23/2014 Office visit Suki Ibrahim FLAT SHEET MAKER 05/22/2012 Office visit Renato Francis MD 05/09/2012 Office visit Suki Ibrahim FLAT SHEET MAKER 11/30/2011 Office visit Suki Ibrahim FLAT SHEET MAKER 11/03/2011 Office visit Suki Ibrahim FLAT SHEET MAKER 02/11/2010 Office visit Amalia KELLER 10/06/2009 Office visit Han Benavidez DO
--- OUTSIDE RECORDS SUMMARY | 2018-05-01 08:26 | XMS REPORT ---
Author Author Morgan Lozano [facility] Address [address] [place], [place] [id number] Care Team Providers Care Sales Representative Womens Health Name Role Phone Morgan Lozano PCP Unavailable Allergies and Adverse Reactions Name [...] ONCE DAILY Augmentin 875-125 mg oral tablet 09/05/2016 09/15/2016 take 1 tablet by oral route every 12 hours for 10 days Name Start Date Expiration [...] 2 times a day for 7 days Discontinued Name Start Date [...] once daily for 10 days sent to [facility] cyclobenzaprine oral 09/23/2014 citalopram [...] HC BMI BSA BMI Percentile O2 Sat(%) 09/05/2016 3:42:00 PM 110 mmHg 78 mmHg [...] AM Bicillin CR, 1.2 million units [facility]# 29513-812-70 Reviewed 11/30/2011 12:00 AM COMPLETE CBC W/AUTO [...] 12:00 AM Decadron, Per 1 Mg [facility]# [address]-85 Reviewed 09/23/2014 12:00 AM Depo-Medrol 80 mg [facility]#[address]-10 Reviewed 03/03/2015 12:00 AM THER/PROPH/DIAG INJ SC/IM Reviewed 03/03/2015 12:00 AM Decadron, Per 1 Mg [facility]# [address]-19 Reviewed 03/03/2015 12:00 AM Depo-Medrol 40mg Reviewed 04/01/2015 12:00 AM CYTOPATH C/V MANUAL Returned 04/01/2015 12:00 AM CHYLMD TRACH DNA AMP PROBE Returned 04/01/2015 12:00 AM N.GONORRHOEAE DNA AMP PROB Returned 04/01/2015 12:00 AM ASSAY OF TOTAL TESTOSTERONE Returned 06/11/2015 12:00 AM THER/PROPH/DIAG INJ SC/IM Reviewed 06/11/2015 12:00 AM Decadron, Per 1 Mg [facility]# [address]-07 Reviewed 06/11/2015 12:00 AM Depo-Medrol 40mg Reviewed [...] recurrence not specified Sep 05 2016 3:53PM Payers Insurance Name Company Name Plan Name Plan Number Policy Number Policy Group Number Start Date [facility] Employee [facility] Employee Benefit [id number] N/A [employer] Financial Assistance [employer] Eric [id number] N/A [facility] [employer] [employer] [id number] N/A History of Encounters Visit Date Visit Type Provider 09/05/2016 Office visit Morgan Lozano NP 11/10/2015 Office visit Suki Ibrahim PLANT AND MAINTENANCE TECHNICIAN 10/30/2015 Office visit Suki Ibrahim PLANT AND MAINTENANCE TECHNICIAN 10/09/2015 Office visit Suki Ibrahim PLANT AND MAINTENANCE TECHNICIAN 09/29/2015 Office visit Suki Ibrahim PLANT AND MAINTENANCE TECHNICIAN 07/04/2015 Office visit Linnette Connor PLANT AND MAINTENANCE TECHNICIAN 06/11/2015 Office visit 06/11/2015 Office visit Suki Ibrahim PLANT AND MAINTENANCE TECHNICIAN 04/15/2015 Office visit Suki Ibrahim PLANT AND MAINTENANCE TECHNICIAN 04/07/2015 Office visit Linnette Connor PLANT AND MAINTENANCE TECHNICIAN 04/06/2015 Office visit Frank Telles PLANT AND MAINTENANCE TECHNICIAN 04/01/2015 Office visit Suki Ibrahim PLANT AND MAINTENANCE TECHNICIAN 03/03/2015 Office visit 03/03/2015 Office visit Suki Ibrahim PLANT AND MAINTENANCE TECHNICIAN 02/22/2015 Office visit Ty Childers PA-C 09/23/2014 Office visit Linnetet Connor PLANT AND MAINTENANCE TECHNICIAN 08/23/2014 Office visit Suki Ibrahim PLANT AND MAINTENANCE TECHNICIAN 05/22/2012 Office visit Renato Francis MD 05/09/2012 Office visit Suki Ibrahim PLANT AND MAINTENANCE TECHNICIAN 11/30/2011 Office visit Suki Ibrahim PLANT AND MAINTENANCE TECHNICIAN 11/03/2011 Office visit Suki Ibrahim PLANT AND MAINTENANCE TECHNICIAN 02/11/2010 Office visit Amalia KELLER 10/06/2009 Office visit Han Benavidez DO
--- OUTSIDE RECORDS SUMMARY | 2018-05-01 08:27 | XMS REPORT ---
Author Author Suki Ibrahim Organization [facility] Address [address] [place], [place] [address] Care Team Providers Care Canal Driver Name Role Phone Suki Ibrahim PCP Unavailable [...] once daily for 10 days sent to [facility] cyclobenzaprine oral 09/23/2014 citalopram 20 mg [...] 12:00 AM Bicillin CR, 1.2 million units [facility]# 26766-895-75 Reviewed 11/30/2011 12:00 AM COMPLETE CBC W/AUTO [...] 09/23/2014 12:00 AM Decadron, Per 1 Mg [facility]# [address]-55 Reviewed 09/23/2014 12:00 AM Depo-Medrol 80 mg N[facility]#[address]-65 Reviewed 03/03/2015 12:00 AM THER/PROPH/DIAG INJ SC/IM Reviewed 03/03/2015 12:00 AM Decadron, Per 1 Mg [place]# [address]-27 Reviewed 03/03/2015 12:00 AM Depo-Medrol 40mg Reviewed 04/01/2015 12:00 AM CYTOPATH C/V MANUAL Reviewed 04/01/2015 12:00 AM CHYLMD TRACH DNA AMP PROBE Reviewed 04/01/2015 12:00 AM N.GONORRHOEAE DNA AMP PROB Reviewed 04/01/2015 12:00 AM ASSAY OF TOTAL TESTOSTERONE Reviewed 06/11/2015 12:00 AM THER/PROPH/DIAG INJ SC/IM Reviewed 06/11/2015 12:00 AM Decadron, Per 1 Mg [facility]# [address]-05 Reviewed 06/11/2015 12:00 AM Depo-Medrol 40mg Reviewed [...] Policy Number Policy Group Number Start Date [employer] Financial Assistance [employer] Financial Eric 100 percent September [facility] [employer] [id number] N/A [facility] Employee Health Employee Benefit [id number] N/A History of Encounters Visit Date Visit Type Provider 03/22/2017 Office visit Suki Ibrahim TOE PUNCHER 01/19/2017 Office visit Suki Ibrahim TOE PUNCHER 12/14/2016 Office visit Suki Ibrahim TOE PUNCHER 09/16/2016 Office visit Suki Ibrahim TOE PUNCHER 09/05/2016 Office visit Morgan Lozano NP 11/10/2015 Office visit Suki Ibrahim TOE PUNCHER 10/30/2015 Office visit Suki Ibrahim TOE PUNCHER 10/09/2015 Office visit Suki Ibrahim TOE PUNCHER 09/29/2015 Office visit Suki Ibrahim TOE PUNCHER 07/04/2015 Office visit Linnette Connor TOE PUNCHER 06/11/2015 Office visit 06/11/2015 Office visit Suki Ibrahim TOE PUNCHER 04/15/2015 Office visit Suki Ibrahim TOE PUNCHER 04/07/2015 Office visit Linnette Connor TOE PUNCHER 04/06/2015 Office visit Frank Telles TOE PUNCHER 04/01/2015 Office visit Suki Ibrahim TOE PUNCHER 03/03/2015 Office visit 03/03/2015 Office visit Suki Ibrahim TOE PUNCHER 02/22/2015 Office visit Ty Childers PA-C 09/23/2014 Office visit Linnette Connor TOE PUNCHER 08/23/2014 Office visit Suki Ibrahim TOE PUNCHER 05/22/2012 Office visit Renato Francis MD 05/09/2012 Office visit Suki Ibrahim APRN 11/30/2011 Office visit Suki Ibrahim APRN 11/03/2011 Office visit Suki Ibrahim APRN 02/11/2010 Office visit Amalia KELLER 10/06/2009 Office visit Han Benavidez DO
--- OUTSIDE RECORDS SUMMARY | 2018-05-01 08:28 | XMS REPORT ---
Author Author Suki Ibrahim [facility] Address [address] [place], [place] [id number] Care Team Providers Care Surgical Technician Name Role Phone Suki Ibrahim PCP Suki [...] for 10 days sent to [facility] cyclobenzaprine oral 09/23/2014 citalopram 20 [...] 12:00 AM Bicillin CR, 1.2 million units [facility]# 49231-337-30 Reviewed 11/30/2011 12:00 AM COMPLETE CBC W/AUTO [...] 09/23/2014 12:00 AM Decadron, Per 1 Mg [facility]# [address]-41 Reviewed 09/23/2014 12:00 AM Depo-Medrol 80 mg [facility]#[address]-21 Reviewed 03/03/2015 12:00 AM THER/PROPH/DIAG INJ SC/IM Reviewed 03/03/2015 12:00 AM Decadron, Per 1 Mg [facility]# [address]-42 Reviewed 03/03/2015 12:00 AM Depo-Medrol 40mg Reviewed 04/01/2015 12:00 AM CYTOPATH C/V MANUAL Reviewed 04/01/2015 12:00 AM CHYLMD TRACH DNA AMP PROBE Reviewed 04/01/2015 12:00 AM N.GONORRHOEAE DNA AMP PROB Reviewed 04/01/2015 12:00 AM ASSAY OF TOTAL TESTOSTERONE Reviewed 06/11/2015 12:00 AM THER/PROPH/DIAG INJ SC/IM Reviewed 06/11/2015 12:00 AM Decadron, Per 1 Mg [facility]# [address]-47 Reviewed 06/11/2015 12:00 AM Depo-Medrol 40mg Reviewed [...] Group Number Start Date [employer] [place] [id number] N/A [employer] Employee Health Employee Benefit [id number] N/A [employer] Financial Assistance [employer] Eric 100 percent September [employer] [id number] N/A History of Encounters Visit Date Visit Type Provider 11/16/2017 Office visit Suki Ibrahim MARRIAGE AND FAMILY TEACHER 11/04/2017 Office visit Shanon Rodriguez MARRIAGE AND FAMILY TEACHER 10/14/2017 Office visit Suki Ibrahim MARRIAGE AND FAMILY TEACHER 09/28/2017 Office visit Shanon Rodriguez MARRIAGE AND FAMILY TEACHER 07/25/2017 Office visit Suki Ibrahim MARRIAGE AND FAMILY TEACHER 07/19/2017 Office visit Suki Ibrahim MARRIAGE AND FAMILY TEACHER 07/03/2017 Office visit Shanon Rodriguez MARRIAGE AND FAMILY TEACHER 05/16/2017 Office visit Suki Ibrahim MARRIAGE AND FAMILY TEACHER 03/22/2017 Office visit Suki Ibrahim MARRIAGE AND FAMILY TEACHER 01/19/2017 Office visit Suki Ibrahim MARRIAGE AND FAMILY TEACHER 12/14/2016 Office visit Suki Ibrahim MARRIAGE AND FAMILY TEACHER 09/16/2016 Office visit Suki Ibrahim MARRIAGE AND FAMILY TEACHER 09/05/2016 Office visit Morgan Lozano NP 11/10/2015 Office visit Suki Ibrahim MARRIAGE AND FAMILY TEACHER 10/30/2015 Office visit Suki Ibrahim MARRIAGE AND FAMILY TEACHER 10/09/2015 Office visit Suki Ibrahim MARRIAGE AND FAMILY TEACHER 09/29/2015 Office visit Suki Ibrahim MARRIAGE AND FAMILY TEACHER 07/04/2015 Office visit Linnette Connor MARRIAGE AND FAMILY TEACHER 06/11/2015 Office visit 06/11/2015 Office visit Suki Ibrahim MARRIAGE AND FAMILY TEACHER 04/15/2015 Office visit Suki Ibrahim MARRIAGE AND FAMILY TEACHER 04/07/2015 Office visit Linnette Connor MARRIAGE AND FAMILY TEACHER 04/06/2015 Office visit Frank Telles MARRIAGE AND FAMILY TEACHER 04/01/2015 Office visit Suki Ibrahim MARRIAGE AND FAMILY TEACHER 03/03/2015 Office visit 03/03/2015 Office visit Suki Ibrahim MARRIAGE AND FAMILY TEACHER 02/22/2015 Office visit Ty Childers PA-C 09/23/2014 Office visit Linnette Connor MARRIAGE AND FAMILY TEACHER 08/23/2014 Office visit Suki Ibrahim MARRIAGE AND FAMILY TEACHER 05/22/2012 Office visit Renato Francis MD 05/09/2012 Office visit Suki Ibrahim MARRIAGE AND FAMILY TEACHER 11/30/2011 Office visit Suki Ibrahim MARRIAGE AND FAMILY TEACHER 11/03/2011 Office visit Suki Ibrahim MARRIAGE AND FAMILY TEACHER 02/11/2010 Office visit Amalia KELLER 10/06/2009 Office visit Han Benavidez DO
--- OUTSIDE RECORDS SUMMARY | 2018-05-01 08:29 | XMS REPORT ---
Author Author Han Benavidez [facility] Address [address] [place], [place] [address] Care Team Providers Care Industrial Management Teacher Name Role Phone Han Benavidez PCP Unavailable [...] for 10 days sent to [facility] cyclobenzaprine oral 09/23/2014 citalopram oral tablet 20 [...] THER/PROPH/DIAG INJ SC/IM Reviewed 04/01/2015 12:00 AM CYTOPATH C/V MANUAL [...] 10:22AM Seasonal allergies Apr 01 2015 10:22AM Payers Insurance Name Company Name Plan Name Plan Number Policy Number Policy Group Number Start Date [employer] Employee Health Employee Benefit [id number] N/A [employer] Financial Assistance [employer] Financial Eric [id number] N/A History of Encounters Visit Date Visit Type Provider 04/01/2015 Office visit Suki Ibrahim APRN 03/03/2015 Office visit Suki Ibrahim VP OF CUSTOMER EXPERIENCE STRATEGY 02/22/2015 Office visit Ty Childers PA-C 09/23/2014 Office visit Linnette Connor APRN 08/23/2014 Office visit Suki Ibrahim APRN 05/22/2012 Office visit Renato Francis MD 05/09/2012 Office visit Suki Ibrahim APRN 11/30/2011 Office visit Suki Ibrahim APRN 11/03/2011 Office visit Suki Ibrahim APRN 02/11/2010 Office visit Amalia KELLER 10/06/2009 Office visit Han Benaivdez DO
--- OUTSIDE RECORDS SUMMARY | 2018-05-01 08:29 | XMS REPORT ---
Author Author Suki Ibrahim Organization [facility] Address [address] [place], [place] [address] Care Team Providers Care Doll Surgeon Name Role Phone Suki Ibrahim PCP Suki [...] a day as needed for 30 days promethazine-codeine 6.25-10 mg/5 mL oral syrup 01/18/2018 take 5 milliliters by oral route every 4-6 hours as needed, not to exceed 30 mL in 24 hours Name Start Date Expiration Date SIG Comments [...] to [facility] cyclobenzaprine oral 09/23/2014 citalopram 20 mg [...] HC BMI BSA BMI Percentile O2 Sat(%) 01/18/2018 1:38:00 PM 116 mmHg 78 mmHg 77 bpm 16 rpm 97.1 F 205.5 lbs 65 in 34.20 kg/m2 2.07 m2 96 % 12/27/2017 1:55:00 PM 110 mmHg 72 mmHg 65 bpm 16 rpm 96.8 F 205 lbs 65 in 34.1134 kg/m 2.0651 m 96 % 12/26/2017 1:34:00 PM 128 mmHg [...] 12:00 AM Bicillin CR, 1.2 million units [facility]# 97989-718-29 Reviewed 11/30/2011 12:00 AM COMPLETE CBC W/AUTO [...] 12:00 AM Decadron, Per 1 Mg [facility]# [address]-24 Reviewed 09/23/2014 12:00 AM Depo-Medrol 80 mg [facility]#[address]-62 Reviewed 03/03/2015 12:00 AM THER/PROPH/DIAG INJ SC/IM Reviewed 03/03/2015 12:00 AM Decadron, Per 1 Mg [facility]# [address]-73 Reviewed 03/03/2015 12:00 AM Depo-Medrol 40mg Reviewed 04/01/2015 12:00 AM CYTOPATH C/V MANUAL Reviewed 04/01/2015 12:00 AM CHYLMD TRACH DNA AMP PROBE Reviewed 04/01/2015 12:00 AM N.GONORRHOEAE DNA AMP PROB Reviewed 04/01/2015 12:00 AM ASSAY OF TOTAL TESTOSTERONE Reviewed 06/11/2015 12:00 AM THER/PROPH/DIAG INJ SC/IM Reviewed 06/11/2015 12:00 AM Decadron, Per 1 Mg [facility]# [address]-71 Reviewed 06/11/2015 12:00 AM Depo-Medrol 40mg Reviewed [...] 2018 1:40PM Cough Jan 18 2018 1:40PM Payers Insurance Name Company Name Plan Name Plan Number Policy Number Policy Group Number Start Date BCBS [facility]bs [facility] [id number] N/A [employer] Employee Health Employee Benefit [id number] N/A [employer] Financial Assistance [employer] Financial Eric 100 percent September [employer] [id number] N/A History of Encounters Visit Date Visit Type Provider 01/18/2018 Office visit Suki Ibrahim APRN 12/27/2017 Procedures Familia Key MD 12/26/2017 Office visit Suki Ibrahim FIRE POT OPERATOR 12/19/2017 Office visit Deisy Garnett MD 11/16/2017 Office visit Suki Ibrahim FIRE POT OPERATOR 11/04/2017 Office visit Shanon Rodriguez APRN 10/14/2017 Office visit Suki Ibrahim APRN 09/28/2017 Office visit Shanon Rodriguez APRN 07/25/2017 Office visit Suki Ibrahim APRN 07/19/2017 Office visit Suki Ibrahim APRN 07/03/2017 Office visit Shanon Rodriguez APRN 05/16/2017 Office visit Suki Ibrahim APRN 03/22/2017 Office visit Suki Ibrahim APRN 01/19/2017 Office visit Suki Ibrahim APRN 12/14/2016 Office visit Suki Ibrahim APRN 09/16/2016 Office visit Suki Ibrahim APRN 09/05/2016 Office visit Morgan Lozano NP 11/10/2015 Office visit Suki Ibrahim FIRE POT OPERATOR 10/30/2015 Office visit Suki Ibrahim APRN 10/09/2015 Office visit Suki Patrice FIRE POT OPERATOR 09/29/2015 Office visit Suki Patrice FIRE POT OPERATOR 07/04/2015 Office visit Linnette Connor FIRE POT OPERATOR 06/11/2015 Office visit 06/11/2015 Office visit Suki Patrice FIRE POT OPERATOR 04/15/2015 Office visit Skui Patrice FIRE POT OPERATOR 04/07/2015 Office visit Linnette Connor FIRE POT OPERATOR 04/06/2015 Office visit Frank Telles FIRE POT OPERATOR 04/01/2015 Office visit Suki Ibrahim FIRE POT OPERATOR 03/03/2015 Office visit 03/03/2015 Office visit Suki Ibrahim FIRE POT OPERATOR 02/22/2015 Office visit Ty Childers PA-C 09/23/2014 Office visit Linnette Connor FIRE POT OPERATOR 08/23/2014 Office visit Suki Ibrahim FIRE POT OPERATOR 05/22/2012 Office visit Renato Francis MD 05/09/2012 Office visit Suki Ibrahim FIRE POT OPERATOR 11/30/2011 Office visit Suki Ibrahim FIRE POT OPERATOR 11/03/2011 Office visit Suki Ibrahim FIRE POT OPERATOR 02/11/2010 Office visit Amalia KELLER 10/06/2009 Office visit Han Benavidez DO
[2018-05-01] MEDS ORDERED: LACTATED RINGERS 1,000 ML IV PRN (08:30)
[2018-05-01] MEDS ORDERED: SCOPOLAMINE 1.5 MG (TRANSDERM-SCOP) PATCH TOP ONE (08:30)
[2018-05-01] MEDS ORDERED: PHENYLEPHRINE 0.25% NASAL SPR (NEO-SYNEPHRINE) 15 ML NS ONE (08:30)
[2018-05-01] MEDS ORDERED: ONDANSETRON 4 MG/2 ML (SDV) Z0FRAN IV ONE (08:30)
[2018-05-01] MEDS ORDERED: FAMOTIDINE 20MG/2ML IV (PEPCID) IV ONE (08:30)
[2018-05-01] MEDS ORDERED: ceFAZolin 2 GM IV Premixed 50 ML IV ONE (08:30)
--- OUTSIDE RECORDS SUMMARY | 2018-05-01 08:30 | XMS REPORT ---
Author Author Suki Ibrahim [facility] Address [address] [place], [place] [address] Care Team Providers Care Bioengineer Name Role Phone Suki Ibrahim PCP Unavailable Suki Ibrahim PreferredProvider Unavailable Allergies and Adverse Reactions Name Reaction Notes NO KNOWN DRUG ALLERGIES Plan of Treatment Planned Activity Comments Planned Date Planned Time Plan/Goal .Lipid Panel 12/14/2016 12:00 AM TSH 12/14/2016 12:00 AM Medications Active Name Start Date Estimated Completion Date SIG Comments Sprintec (28) 0.25-35 mg-mcg oral tablet 04/01/2015 [...] TABLET BY MOUTH ONCE DAILY Zoloft oral amitriptyline 25 mg oral tablet 12/14/2016 take 1 tablet (25 mg) by oral route once daily at bedtime, may increase to 50mg at HS if needed Name Start Date Expiration Date SIG Comments [...] once daily for 10 [facility] cyclobenzaprine oral 09/23/2014 citalopram 20 mg [...] due to other mental disorder Active 12/14/2016 Vital Signs Date Time BP-Sys(mm[Hg] BP-Amanda(mm[Hg]) HR(bpm) RR(rpm) Temp WT HT HC BMI BSA BMI Percentile O2 Sat(%) 12/14/2016 8:43:00 AM 124 mmHg 64 mmHg [...] 12:00 AM Bicillin CR, 1.2 million units [facility]# 41054-197-19 Reviewed 11/30/2011 12:00 AM COMPLETE CBC W/AUTO [...] 09/23/2014 12:00 AM Decadron, Per 1 Mg [facility]# [address]-27 Reviewed 09/23/2014 12:00 AM Depo-Medrol 80 mg [facility]#[address]-73 Reviewed 03/03/2015 12:00 AM THER/PROPH/DIAG INJ SC/IM Reviewed 03/03/2015 12:00 AM Decadron, Per 1 Mg [facility]# [address]-29 Reviewed 03/03/2015 12:00 AM Depo-Medrol 40mg Reviewed 04/01/2015 12:00 AM CYTOPATH C/V MANUAL Reviewed 04/01/2015 12:00 AM CHYLMD TRACH DNA AMP PROBE Reviewed 04/01/2015 12:00 AM N.GONORRHOEAE DNA AMP PROB Reviewed 04/01/2015 12:00 AM ASSAY OF TOTAL TESTOSTERONE Reviewed 06/11/2015 12:00 AM THER/PROPH/DIAG INJ SC/IM Reviewed 06/11/2015 12:00 AM Decadron, Per 1 Mg [facility]# [address]-14 Reviewed 06/11/2015 12:00 AM Depo-Medrol 40mg Reviewed [...] AA 103 eGFR >60 mL/min/1.73meGFR AA* >60 History Of Immunizations Not available. History of Past Illness Name Date of Onset Comments Anxiety Anemia Asthma Headache Bronchitis, Acute Feb 11 2010 9:19AM Upper Respiratory Infections Feb 11 2010 9:19AM Depression OCD Thyroid disorder Allergic rhinitis, unspecified allergic rhinitis type 10/30/2015 Anxiety 10/30/2015 Hypothyroidism, Acquired 12/14/2016 Insomnia due to other mental disorder 12/14/2016 Pharyngitis, Acute Nov 03 2011 10:06AM Fatigue [...] other mental disorder Dec 14 2016 8:45AM Payers Insurance Name Company Name Plan Name Plan Number Policy Number Policy Group Number Start Date [email or web address] Employee Health Employee Benefit [id number] N/A [employer] Financial Assistance [employer] Eric [id number] N/A [facility] [employer] [id number] N/A History of Encounters Visit Date Visit Type Provider 12/14/2016 Office visit Suki Ibrahim PIN STICKER 09/16/2016 Office visit Suki Ibrahim PIN STICKER 09/05/2016 Office visit Morgan Lozano NP 11/10/2015 Office visit Suki Ibrahim PIN STICKER 10/30/2015 Office visit Suki Ibrahim PIN STICKER 10/09/2015 Office visit Suki Ibrahim PIN STICKER 09/29/2015 Office visit Suki Ibrahim PIN STICKER 07/04/2015 Office visit Linnette Connor PIN STICKER 06/11/2015 Office visit 06/11/2015 Office visit Suki Ibrahim PIN STICKER 04/15/2015 Office visit Suki Ibrahim PIN STICKER 04/07/2015 Office visit Linnette Connor PIN STICKER 04/06/2015 Office visit Frank Telles PIN STICKER 04/01/2015 Office visit Suki Ibrahim PIN STICKER 03/03/2015 Office visit 03/03/2015 Office visit Suki Ibrahim PIN STICKER 02/22/2015 Office visit Ty Childers PA-C 09/23/2014 Office visit Linnette Connor PIN STICKER 08/23/2014 Office visit Suki Ibrahim PIN STICKER 05/22/2012 Office visit Renato Francis MD 05/09/2012 Office visit Suki Ibrahim PIN STICKER 11/30/2011 Office visit Suki Ibrahim PIN STICKER 11/03/2011 Office visit Suki Ibrahim APRN 02/11/2010 Office visit Amalia KELLER 10/06/2009 Office visit Han Benavidez DO
--- OUTSIDE RECORDS SUMMARY | 2018-05-01 08:30 | XMS REPORT ---
Author Author Han Benavidez [facility] Address [address] [place], [place] [address] Care Team Providers Care Master Glazier Name Role Phone Han Benavidez PCP Unavailable Allergies and Adverse Reactions Name Reaction Notes NO KNOWN DRUG ALLERGIES Plan of Treatment Planned Activity Comments Planned Date Planned Time Plan/Goal CYTOPATH C/V MANUAL 04/01/2015 12:00 AM CHYLMD TRACH DNA AMP PROBE 04/01/2015 12:00 AM N.GONORRHOEAE DNA AMP PROB 04/01/2015 12:00 AM Medications Active Name Start [...] daily for 10 days sent to [facility] cyclobenzaprine oral 09/23/2014 citalopram oral tablet 20 [...] Policy Number Policy Group Number Start Date [facility] [employer] Employee Health Employee Benefit [id number] N/A [employer] Financial Assistance [employer] Financial Eric [id number] N/A History of Encounters Visit Date Visit Type Provider 04/01/2015 Office visit Suki Ibrahim APRN 03/03/2015 Office visit Suki Ibrahim BUFFING MACHINE OPERATOR SEMIAUTOMATIC 02/22/2015 Office visit Ty Childers PA-C 09/23/2014 Office visit Linnette Connor APRN 08/23/2014 Office visit Suki Ibrahim APRN 05/22/2012 Office visit Renato Francis MD 05/09/2012 Office visit Suki Ibrahim APRN 11/30/2011 Office visit Suki Ibrahim APRN 11/03/2011 Office visit Suki Ibrahim APRN 02/11/2010 Office visit Amalia KELLER 10/06/2009 Office visit Han Benavidez DO
--- OUTSIDE RECORDS SUMMARY | 2018-05-01 08:31 | XMS REPORT ---
Author Author Suki Ibrahim Organization [facility] Address [address] [place], [place] [address] Care Team Providers Care Drilling Superintendent Name Role Phone Suki Ibrahim PCP Suki [...] daily in the evening for 30 days promethazine-codeine 6.25-10 mg/5 mL oral syrup 02/15/2018 [...] AM Bicillin CR, 1.2 million units [facility]# 02723-731-64 Reviewed 11/30/2011 12:00 AM COMPLETE CBC W/AUTO [...] 09/23/2014 12:00 AM Decadron, Per 1 Mg [facility]# [address]-23 Reviewed 09/23/2014 12:00 AM Depo-Medrol 80 mg NDC#[address]-00 Reviewed 03/03/2015 12:00 AM THER/PROPH/DIAG INJ SC/IM Reviewed 03/03/2015 12:00 AM Decadron, Per 1 Mg [facility]# [address]-75 Reviewed 03/03/2015 12:00 AM Depo-Medrol 40mg Reviewed 04/01/2015 12:00 AM CYTOPATH C/V MANUAL Reviewed 04/01/2015 12:00 AM CHYLMD TRACH DNA AMP PROBE Reviewed 04/01/2015 12:00 AM N.GONORRHOEAE DNA AMP PROB Reviewed 04/01/2015 12:00 AM ASSAY OF TOTAL TESTOSTERONE Reviewed 06/11/2015 12:00 AM THER/PROPH/DIAG INJ SC/IM Reviewed 06/11/2015 12:00 AM Decadron, Per 1 Mg [facility]# [address]-68 Reviewed 06/11/2015 12:00 AM Depo-Medrol 40mg Reviewed [...] Policy Number Policy Group Number Start Date [facility] [id number] N/A [employer] Employee Health Employee Benefit [id number] N/A [employer] Financial [employer] Eric 100 percent September [facility] [id number] N/A History of Encounters Visit Date Visit Type Provider 02/02/2018 Office visit Suki Ibrahim APRN 01/18/2018 Office visit Suki Ibrahim MONEY LAUNDERING INVESTIGATOR 12/27/2017 Procedures Familia Key MD 12/26/2017 Office visit Suki Ibrahim MONEY LAUNDERING INVESTIGATOR 12/19/2017 Office visit Deisy Garnett MD 11/16/2017 Office visit Suki Ibrahim MONEY LAUNDERING INVESTIGATOR 11/04/2017 Office visit Shanon Rodriguez MONEY LAUNDERING INVESTIGATOR 10/14/2017 Office visit Suki Ibrahim MONEY LAUNDERING INVESTIGATOR 09/28/2017 Office visit Shanon Dawkins Ortley MONEY LAUNDERING INVESTIGATOR 07/25/2017 Office visit Suki Walker MONEY LAUNDERING INVESTIGATOR 07/19/2017 Office visit Suki Walker MONEY LAUNDERING INVESTIGATOR 07/03/2017 Office visit Shanon Dawkins Ortley MONEY LAUNDERING INVESTIGATOR 05/16/2017 Office visit Suki Ibrahim MONEY LAUNDERING INVESTIGATOR 03/22/2017 Office visit Suki Walker MONEY LAUNDERING INVESTIGATOR 01/19/2017 Office visit Suki Walker MONEY LAUNDERING INVESTIGATOR 12/14/2016 Office visit Suki Walker MONEY LAUNDERING INVESTIGATOR 09/16/2016 Office visit Suki Walker MONEY LAUNDERING INVESTIGATOR 09/05/2016 Office visit Morgan Lozano NP 11/10/2015 Office visit Suki Walker MONEY LAUNDERING INVESTIGATOR 10/30/2015 Office visit Suki Walker MONEY LAUNDERING INVESTIGATOR 10/09/2015 Office visit Suki Walker MONEY LAUNDERING INVESTIGATOR 09/29/2015 Office visit Suki Walker MONEY LAUNDERING INVESTIGATOR 07/04/2015 Office visit Linnette Connor MONEY LAUNDERING INVESTIGATOR 06/11/2015 Office visit 06/11/2015 Office visit Suki Walker MONEY LAUNDERING INVESTIGATOR 04/15/2015 Office visit Suki Patrice MONEY LAUNDERING INVESTIGATOR 04/07/2015 Office visit Linnette Connor MONEY LAUNDERING INVESTIGATOR 04/06/2015 Office visit Frank Telles MONEY LAUNDERING INVESTIGATOR 04/01/2015 Office visit Suki Ibrahim MONEY LAUNDERING INVESTIGATOR 03/03/2015 Office visit 03/03/2015 Office visit Suki Walker MONEY LAUNDERING INVESTIGATOR 02/22/2015 Office visit Ty Childers PA-C 09/23/2014 Office visit Linnette Connor MONEY LAUNDERING INVESTIGATOR 08/23/2014 Office visit Suki Patrice MONEY LAUNDERING INVESTIGATOR 05/22/2012 Office visit Renato Francis MD 05/09/2012 Office visit Suki Walker MONEY LAUNDERING INVESTIGATOR 11/30/2011 Office visit Suki Walker MONEY LAUNDERING INVESTIGATOR 11/03/2011 Office visit Suki Walker MONEY LAUNDERING INVESTIGATOR 02/11/2010 Office visit Amalia KELLER 10/06/2009 Office visit Han Benavidez DO
--- OUTSIDE RECORDS SUMMARY | 2018-05-01 08:32 | XMS REPORT ---
Author Author Suki Ibrahim [facility] Address [address] [place], [place] [address] Care Team Providers Care Supply Chain Systems Manager Name Role Phone Suki Ibrahim PCP Unavailable Suki Ibrahim PreferredProvider Unavailable Allergies and Adverse Reactions Name Reaction Notes NO KNOWN DRUG ALLERGIES Plan of Treatment Planned Activity Comments Planned Date Planned Time Plan/Goal CRP 03/24/2017 12:00 AM SED RATE 03/24/2017 12:00 AM Free triiodothyronine (T3) measurement 06/10/2017 12:00 AM T4 06/10/2017 12:00 AM Medications Active Name Start Date [...] once daily for 10 days sent to [facility] cyclobenzaprine oral 09/23/2014 citalopram 20 mg [...] 12:00 AM Bicillin CR, 1.2 million units [facility]# 42501-871-73 Reviewed 11/30/2011 12:00 AM COMPLETE CBC W/AUTO [...] 12:00 AM ASSAY OF BLOOD/URIC ACID Reviewed 06/09/2017 12:00 AM ASSAY THYROID STIM HORMONE Returned 08/23/2014 12:00 AM COMPLETE CBC W/AUTO DIFF WBC Reviewed 08/23/2014 12:00 AM COMPREHEN METABOLIC PANEL Reviewed 08/23/2014 12:00 AM ASSAY THYROID STIM HORMONE Reviewed 09/23/2014 12:00 AM THER/PROPH/DIAG INJ SC/IM Reviewed 09/23/2014 12:00 AM Decadron, Per 1 Mg [facility]# [address]-28 Reviewed 09/23/2014 12:00 AM Depo-Medrol 80 mg [facility]#[address]-93 Reviewed 03/03/2015 12:00 AM THER/PROPH/DIAG INJ SC/IM Reviewed 03/03/2015 12:00 AM Decadron, Per 1 Mg [facility]# [address]-45 Reviewed 03/03/2015 12:00 AM Depo-Medrol 40mg Reviewed 04/01/2015 12:00 AM CYTOPATH C/V MANUAL Reviewed 04/01/2015 12:00 AM CHYLMD TRACH DNA AMP PROBE Reviewed 04/01/2015 12:00 AM N.GONORRHOEAE DNA AMP PROB Reviewed 04/01/2015 12:00 AM ASSAY OF TOTAL TESTOSTERONE Reviewed 06/11/2015 12:00 AM THER/PROPH/DIAG INJ SC/IM Reviewed 06/11/2015 12:00 AM Decadron, Per 1 Mg [facility]# [address]-26 Reviewed 06/11/2015 12:00 AM Depo-Medrol 40mg Reviewed [...] 4.6 mg/dL 06/10/2017 8:25 AM TSH 2.860 uIU/mL History Of Immunizations Not available. History [...] 2017 10:25AM Hypothyroid Jun 10 2017 11:59AM Payers Insurance Name Company Name Plan Name Plan Number Policy Number Policy Group Number Start Date BCBS [facility] [id number] N/A [employer] Employee Health Employee Benefit [id number] N/A [employer] Financial Assistance [employer] Eric 100 percent September [employer] [id number] N/A History of Encounters Visit Date Visit Type Provider 05/16/2017 Office visit Suki Ibrahim MANAGER BUSINESS PLANNING 03/22/2017 Office visit Suki Ibrahim MANAGER BUSINESS PLANNING 01/19/2017 Office visit Suki Ibrahim MANAGER BUSINESS PLANNING 12/14/2016 Office visit Suki Ibrahim MANAGER BUSINESS PLANNING 09/16/2016 Office visit Suki Ibrahim MANAGER BUSINESS PLANNING 09/05/2016 Office visit Morgan Lozano NP 11/10/2015 Office visit Suki Ibrahim MANAGER BUSINESS PLANNING 10/30/2015 Office visit Skui Ibrahim MANAGER BUSINESS PLANNING 10/09/2015 Office visit Suki Ibrahim MANAGER BUSINESS PLANNING 09/29/2015 Office visit Suki Ibrahim MANAGER BUSINESS PLANNING 07/04/2015 Office visit Linnette Connor MANAGER BUSINESS PLANNING 06/11/2015 Office visit 06/11/2015 Office visit Suki Ibrahim MANAGER BUSINESS PLANNING 04/15/2015 Office visit Suki Ibrahim MANAGER BUSINESS PLANNING 04/07/2015 Office visit Linnette Connor MANAGER BUSINESS PLANNING 04/06/2015 Office visit Frank Telles MANAGER BUSINESS PLANNING 04/01/2015 Office visit Suki Ibrahim MANAGER BUSINESS PLANNING 03/03/2015 Office visit 03/03/2015 Office visit Suki Ibrahim MANAGER BUSINESS PLANNING 02/22/2015 Office visit Ty Childers PA-C 09/23/2014 Office visit Linnette Connor MANAGER BUSINESS PLANNING 08/23/2014 Office visit Suki Patrice MANAGER BUSINESS PLANNING 05/22/2012 Office visit Renato Francis MD 05/09/2012 Office visit Suki Ibrahim MANAGER BUSINESS PLANNING 11/30/2011 Office visit Suki Ibrahim MANAGER BUSINESS PLANNING 11/03/2011 Office visit Suki Ibrahim MANAGER BUSINESS PLANNING 02/11/2010 Office visit Amalia KELLER 10/06/2009 Office visit Han Benavidez DO
--- OUTSIDE RECORDS SUMMARY | 2018-05-01 08:33 | XMS REPORT ---
Author Author Suki Ibrahim Organization [facility] Address [address] [place], [place] [address] Care Team Providers Care Gyroscope Technician Name Role Phone Suki Ibrahim PCP [...] daily for 10 days sent to [facility] cyclobenzaprine oral 09/23/2014 citalopram 20 mg oral [...] 12:00 AM Bicillin CR, 1.2 million units [facility]# 32567-913-98 Reviewed 11/30/2011 12:00 AM COMPLETE CBC W/AUTO [...] 09/23/2014 12:00 AM Decadron, Per 1 Mg [facility]# [address]-42 Reviewed 09/23/2014 12:00 AM Depo-Medrol 80 mg ND#[address]-07 Reviewed 03/03/2015 12:00 AM THER/PROPH/DIAG INJ SC/IM Reviewed 03/03/2015 12:00 AM Decadron, Per 1 Mg [facility]# [address]-27 Reviewed 03/03/2015 12:00 AM Depo-Medrol 40mg Reviewed 04/01/2015 12:00 AM CYTOPATH C/V MANUAL Reviewed 04/01/2015 12:00 AM CHYLMD TRACH DNA AMP PROBE Reviewed 04/01/2015 12:00 AM N.GONORRHOEAE DNA AMP PROB Reviewed 04/01/2015 12:00 AM ASSAY OF TOTAL TESTOSTERONE Reviewed 06/11/2015 12:00 AM THER/PROPH/DIAG INJ SC/IM Reviewed 06/11/2015 12:00 AM Decadron, Per 1 Mg [facility]# [address]-20 Reviewed 06/11/2015 12:00 AM Depo-Medrol 40mg Reviewed [...] Number Policy Group Number Start Date BCBS [facility] [id number] N/A [employer] Employee Health Employee Benefit [id number] N/A [employer] Financial Assistance [place] [employer] Eric 100 percent [facility] [id number] N/A History of Encounters Visit Date Visit [...] Ibrahim APRN 07/19/2017 Office visit Suki Ibrahim MOTEL FRONT DESK ATTENDANT 07/03/2017 Office visit Shanon Rodriguez MOTEL FRONT DESK ATTENDANT 05/16/2017 Office visit Suki Walker MOTEL FRONT DESK ATTENDANT 03/22/2017 Office visit Suki Walker MOTEL FRONT DESK ATTENDANT 01/19/2017 Office visit Suki Walker MOTEL FRONT DESK ATTENDANT 12/14/2016 Office visit Suki Walker MOTEL FRONT DESK ATTENDANT 09/16/2016 Office visit Suki Walker MOTEL FRONT DESK ATTENDANT 09/05/2016 Office visit Morgan Lozano NP 11/10/2015 Office visit Suki Walker MOTEL FRONT DESK ATTENDANT 10/30/2015 Office visit Suki Walker MOTEL FRONT DESK ATTENDANT 10/09/2015 Office visit Suki Walker MOTEL FRONT DESK ATTENDANT 09/29/2015 Office visit Suki Ibrahim MOTEL FRONT DESK ATTENDANT 07/04/2015 Office visit Linnette Connor MOTEL FRONT DESK ATTENDANT 06/11/2015 Office visit 06/11/2015 Office visit Suki Ibrahim MOTEL FRONT DESK ATTENDANT 04/15/2015 Office visit Suki Ibrahim MOTEL FRONT DESK ATTENDANT 04/07/2015 Office visit Linnette Connor MOTEL FRONT DESK ATTENDANT 04/06/2015 Office visit Frank Telles MOTEL FRONT DESK ATTENDANT 04/01/2015 Office visit Suki Ibrahim MOTEL FRONT DESK ATTENDANT 03/03/2015 Office visit 03/03/2015 Office visit Suki Ibrahim MOTEL FRONT DESK ATTENDANT 02/22/2015 Office visit Ty Childers PA-C 09/23/2014 Office visit Linnette Connor MOTEL FRONT DESK ATTENDANT 08/23/2014 Office visit Suki Patrice MOTEL FRONT DESK ATTENDANT 05/22/2012 Office visit Renato Francis MD 05/09/2012 Office visit Suki Walker MOTEL FRONT DESK ATTENDANT 11/30/2011 Office visit Suki Walker MOTEL FRONT DESK ATTENDANT 11/03/2011 Office visit Suki Walker MOTEL FRONT DESK ATTENDANT 02/11/2010 Office visit Amalia KELLER 10/06/2009 Office visit Han Benavidez DO
--- OUTSIDE RECORDS SUMMARY | 2018-05-01 08:34 | XMS REPORT ---
Author Author Linnette Connor [facility] Address [address] [place], [place] [address] Care Team Providers Care Maintenance Mechanic Telephone Name Role Phone Linnette Connor PCP Unavailable Allergies and Adverse Reactions Name Reaction Notes NO KNOWN DRUG ALLERGIES Plan of Treatment Planned Activity Comments Planned Date Planned Time Plan/Goal ASSAY THYROID STIM HORMONE 09/22/2015 12:00 AM Medications Active Name Start Date [...] once daily for 10 days sent to [facility] cyclobenzaprine oral 09/23/2014 citalopram 20 [...] Decadron, Per 1 Mg [facility]# [address]-13 Reviewed 09/23/2014 12:00 AM Depo-Medrol 80 mg ND#[address]-08 Reviewed 03/03/2015 12:00 AM THER/PROPH/DIAG INJ SC/IM Reviewed 03/03/2015 12:00 AM Decadron, Per 1 Mg [facility]# [address]-27 Reviewed 03/03/2015 12:00 AM Depo-Medrol 40mg Reviewed 04/01/2015 12:00 AM CYTOPATH C/V MANUAL Returned 04/01/2015 12:00 AM CHYLMD TRACH DNA AMP PROBE Returned 04/01/2015 12:00 AM N.GONORRHOEAE DNA AMP PROB Returned 04/01/2015 12:00 AM ASSAY OF TOTAL TESTOSTERONE Returned 06/11/2015 12:00 AM THER/PROPH/DIAG INJ SC/IM Reviewed 06/11/2015 12:00 AM Decadron, Per 1 Mg [facility]# [address]-92 Reviewed 06/11/2015 12:00 AM Depo-Medrol 40mg Reviewed [...] Policy Number Policy Group Number Start Date [place] [employer] Financial Assistance [place] [employer] Eric [id number] N/A [place] [facility] [employer] [id number] N/A [facility] [employer] Employee Health Employee Benefit [id number] N/A History of Encounters Visit Date Visit Type Provider 07/04/2015 Office visit Linnette Connor IRRIGATION SYSTEM INSTALLER 06/11/2015 Office visit Suki Ibrahim IRRIGATION SYSTEM INSTALLER 04/15/2015 Office visit Suki Ibrahim IRRIGATION SYSTEM INSTALLER 04/07/2015 Office visit Linnette Connor IRRIGATION SYSTEM INSTALLER 04/06/2015 Office visit Frank Telles IRRIGATION SYSTEM INSTALLER 04/01/2015 Office visit Suki Ibrahim IRRIGATION SYSTEM INSTALLER 03/03/2015 Office visit Suki Ibrahim IRRIGATION SYSTEM INSTALLER 02/22/2015 Office visit Ty Childers PA-C 09/23/2014 Office visit Linnette Connor IRRIGATION SYSTEM INSTALLER 08/23/2014 Office visit Suki Ibrahim IRRIGATION SYSTEM INSTALLER 05/22/2012 Office visit Renato Francis MD 05/09/2012 Office visit Suki Ibrahim IRRIGATION SYSTEM INSTALLER 11/30/2011 Office visit Suki Ibrahim IRRIGATION SYSTEM INSTALLER 11/03/2011 Office visit Suki Ibrahim IRRIGATION SYSTEM INSTALLER 02/11/2010 Office visit Amalia KELLER 10/06/2009 Office visit Han Benavidez DO
--- OUTSIDE RECORDS SUMMARY | 2018-05-01 08:34 | XMS REPORT ---
Author Author Suki Ibrahim [facility] Address [address] [place], [place] [address] Care Team Providers Care Electronic Warfare Operator Name Role Phone Suki Ibrahim PCP Unavailable [...] once daily for 10 days sent to [facility] cyclobenzaprine oral 09/23/2014 citalopram [...] 12:00 AM Bicillin CR, 1.[address] [facility]# 23069-278-64 Reviewed 11/30/2011 12:00 AM COMPLETE CBC W/AUTO [...] 09/23/2014 12:00 AM Decadron, Per [address] [facility]# [address]-72 Reviewed 09/23/2014 12:00 AM Depo-Medrol [address] [facility]#[address]-87 Reviewed 03/03/2015 12:00 AM THER/PROPH/DIAG INJ SC/IM Reviewed 03/03/2015 12:00 AM Decadron, Per [address] [facility]# [address]-57 Reviewed 03/03/2015 12:00 AM Depo-Medrol 40mg Reviewed 04/01/2015 12:00 AM CYTOPATH C/V MANUAL Reviewed 04/01/2015 12:00 AM CHYLMD TRACH DNA AMP PROBE Reviewed 04/01/2015 12:00 AM N.GONORRHOEAE DNA AMP PROB Reviewed 04/01/2015 12:00 AM ASSAY OF TOTAL TESTOSTERONE Reviewed 06/11/2015 12:00 AM THER/PROPH/DIAG INJ SC/IM Reviewed 06/11/2015 12:00 AM Decadron, Per [address] [facility]# [address]-84 Reviewed 06/11/2015 12:00 AM Depo-Medrol 40mg Reviewed [...] mm/hrRA Factor < 15.0 IU/mLANA Direct Negative History Of Immunizations Not available. History of [...] 2017 10:32AM Arthralgia Mar 24 2017 1:35PM Payers Insurance Name Company Name Plan Name Plan Number Policy Number Policy Group Number Start Date [place] FUJIAN HAIYUAN Financial Assistance [employer] Eric 100 percent September Issue [employer] [id number] N/A [employer] Employee Health Employee Benefit [id number] N/A History of Encounters Visit Date Visit Type Provider 03/22/2017 Office visit Suki bIrahim WARP KNIT OPERATOR 01/19/2017 Office visit Suki Ibrahim WARP KNIT OPERATOR 12/14/2016 Office visit Suki Ibrahim WARP KNIT OPERATOR 09/16/2016 Office visit Suki Ibrahim WARP KNIT OPERATOR 09/05/2016 Office visit Morgan Lozano NP 11/10/2015 Office visit Suki Ibrahim WARP KNIT OPERATOR 10/30/2015 Office visit Suki Ibrahim WARP KNIT OPERATOR 10/09/2015 Office visit Suki Ibrahim WARP KNIT OPERATOR 09/29/2015 Office visit Suki Ibrahim WARP KNIT OPERATOR 07/04/2015 Office visit Linnette Connor WARP KNIT OPERATOR 06/11/2015 Office visit 06/11/2015 Office visit Suki Ibrahim WARP KNIT OPERATOR 04/15/2015 Office visit Suki Ibrahim WARP KNIT OPERATOR 04/07/2015 Office visit Linnette Connor WARP KNIT OPERATOR 04/06/2015 Office visit Frank Telles WARP KNIT OPERATOR 04/01/2015 Office visit Suki Ibrahim WARP KNIT OPERATOR 03/03/2015 Office visit 03/03/2015 Office visit Suki Ibrahim WARP KNIT OPERATOR 02/22/2015 Office visit Ty Childers PA-C 09/23/2014 Office visit Linnette Connor WARP KNIT OPERATOR 08/23/2014 Office visit Suki Ibrahim WARP KNIT OPERATOR 05/22/2012 Office visit Renato Francis MD 05/09/2012 Office visit Suki Ibrahim WARP KNIT OPERATOR 11/30/2011 Office visit Suki Ibrahim WARP KNIT OPERATOR 11/03/2011 Office visit Suki Ibrahim WARP KNIT OPERATOR 02/11/2010 Office visit Amalia KELLER 10/06/2009 Office visit Han Benavidez DO
--- OUTSIDE RECORDS SUMMARY | 2018-05-01 08:35 | XMS REPORT ---
Author Author Suki Ibrahim [facility] Address [address] [place], [place] [address] Care Team Providers Care Community Action Worker Name Role Phone Suki Ibrahim PCP Unavailable [...] for 10 days sent to [facility] cyclobenzaprine oral 09/23/2014 citalopram 20 mg oral [...] 1.2 million units [facility]# 04742-305-20 Reviewed 11/30/2011 12:00 AM COMPLETE CBC W/AUTO [...] Per 1 Mg [facility]# [address]-13 Reviewed 09/23/2014 12:00 AM Depo-Medrol 80 mg [facility]#[address]-11 Reviewed 03/03/2015 12:00 AM THER/PROPH/DIAG INJ SC/IM Reviewed 03/03/2015 12:00 AM Decadron, Per 1 Mg [facility]# [address]-32 Reviewed 03/03/2015 12:00 AM Depo-Medrol 40mg Reviewed 04/01/2015 12:00 AM CYTOPATH C/V MANUAL Returned 04/01/2015 12:00 AM CHYLMD TRACH DNA AMP PROBE Returned 04/01/2015 12:00 AM N.GONORRHOEAE DNA AMP PROB Returned 04/01/2015 12:00 AM ASSAY OF TOTAL TESTOSTERONE Returned 06/11/2015 12:00 AM THER/PROPH/DIAG INJ SC/IM Reviewed 06/11/2015 12:00 AM Decadron, Per 1 Mg [facility]# [address]-73 Reviewed 06/11/2015 12:00 AM Depo-Medrol 40mg Reviewed [...] Policy Number Policy Group Number Start Date [employer] Employee Health Employee Benefit [id number] N/A [employer] Financial Assistance [employer] Eric [id number] N/A [place] [employer] [id number] N/A History of Encounters Visit Date Visit Type Provider 09/16/2016 Office visit Suki Ibrahim APRN 09/05/2016 Office visit Morgan Lozano NP 11/10/2015 Office visit Suki Ibrahim MANAGER REVENUE 10/30/2015 Office visit Suki Ibrahim APRN 10/09/2015 Office visit Suki Ibrahim APRN 09/29/2015 Office visit Suki Ibrahim MANAGER REVENUE 07/04/2015 Office visit Linnette Connor MANAGER REVENUE 06/11/2015 Office visit 06/11/2015 Office visit Suki Ibrahim MANAGER REVENUE 04/15/2015 Office visit Suki Ibrahim MANAGER REVENUE 04/07/2015 Office visit Linnette Connor MANAGER REVENUE 04/06/2015 Office visit Frank Telles MANAGER REVENUE 04/01/2015 Office visit Suki Ibrahim MANAGER REVENUE 03/03/2015 Office visit 03/03/2015 Office visit Suki Ibrahim MANAGER REVENUE 02/22/2015 Office visit Ty Childers PA-C 09/23/2014 Office visit Linnette Connor MANAGER REVENUE 08/23/2014 Office visit Suki Ibrahim MANAGER REVENUE 05/22/2012 Office visit Renato Francis MD 05/09/2012 Office visit Suki Ibrahim MANAGER REVENUE 11/30/2011 Office visit Suki Ibrahim MANAGER REVENUE 11/03/2011 Office visit Suki Ibrahim MANAGER REVENUE 02/11/2010 Office visit Amalia KELLER 10/06/2009 Office visit Han Benavidez DO
--- OUTSIDE RECORDS SUMMARY | 2018-05-01 08:36 | XMS REPORT ---
Author Author Suki Ibrahim Organization [facility] Address [address] [place], [place] [id number] Care Team Providers Care Cargo Worker Name Role Phone Suki Ibrahim PCP Unavailable Suki Ibrahim PreferredProvider Unavailable Allergies and Adverse Reactions Name Reaction Notes NO KNOWN DRUG ALLERGIES Plan of Treatment Planned Activity Comments Planned Date Planned Time Plan/Goal RA FACTOR 03/22/2017 12:00 AM BERNARD W/REFLEX 03/22/2017 12:00 AM CRP 03/22/2017 12:00 AM SED RATE 03/22/2017 12:00 AM Medications Active Name Start Date [...] 12:00 AM Bicillin CR, 1.2 million units [facility]# 06974-861-40 Reviewed 11/30/2011 12:00 AM COMPLETE CBC W/AUTO [...] 09/23/2014 12:00 AM Decadron, Per [address] [facility]# [address]-83 Reviewed 09/23/2014 12:00 AM Depo-Medrol [address] [facility]#[address]-88 Reviewed 03/03/2015 12:00 AM THER/PROPH/DIAG INJ SC/IM Reviewed 03/03/2015 12:00 AM Decadron, Per [address] [facility]# [address]-46 Reviewed 03/03/2015 12:00 AM Depo-Medrol 40mg Reviewed 04/01/2015 12:00 AM CYTOPATH C/V MANUAL Reviewed 04/01/2015 12:00 AM CHYLMD TRACH DNA AMP PROBE Reviewed 04/01/2015 12:00 AM N.GONORRHOEAE DNA AMP PROB Reviewed 04/01/2015 12:00 AM ASSAY OF TOTAL TESTOSTERONE Reviewed 06/11/2015 12:00 AM THER/PROPH/DIAG INJ SC/IM Reviewed 06/11/2015 12:00 AM Decadron, Per [address] [facility]# [address]-28 Reviewed 06/11/2015 12:00 AM Depo-Medrol 40mg Reviewed [...] 3.4 LDL (CALC) 115.0 mg/dLTSH 1.320 uIU/mL History Of Immunizations Not available. History [...] 10:32AM Other fatigue Mar 22 2017 10:32AM Payers Insurance Name Company Name Plan Name Plan Number Policy Number Policy Group Number Start Date [facility] Financial Eric 100 percent September [facility] [employer] [id number] N/A [facility] Employee Health Employee Benefit [id number] N/A History of Encounters Visit Date Visit Type Provider 03/22/2017 Office visit Suki Ibrahim WAITER/WAITRESS COCKTAIL LOUNGE 01/19/2017 Office visit Suki Ibrahim WAITER/WAITRESS COCKTAIL LOUNGE 12/14/2016 Office visit Suki Ibrahim WAITER/WAITRESS COCKTAIL LOUNGE 09/16/2016 Office visit Suki Ibrahim WAITER/WAITRESS COCKTAIL LOUNGE 09/05/2016 Office visit Morgan Lozano NP 11/10/2015 Office visit Suki Ibrahim WAITER/WAITRESS COCKTAIL LOUNGE 10/30/2015 Office visit Suki Ibrahim WAITER/WAITRESS COCKTAIL LOUNGE 10/09/2015 Office visit Suki Ibrahim WAITER/WAITRESS COCKTAIL LOUNGE 09/29/2015 Office visit Suki Ibrahim WAITER/WAITRESS COCKTAIL LOUNGE 07/04/2015 Office visit Linnette Connor WAITER/WAITRESS COCKTAIL LOUNGE 06/11/2015 Office visit 06/11/2015 Office visit Suki Ibrahim WAITER/WAITRESS COCKTAIL LOUNGE 04/15/2015 Office visit Suki Ibrahim WAITER/WAITRESS COCKTAIL LOUNGE 04/07/2015 Office visit Linnette Connor WAITER/WAITRESS COCKTAIL LOUNGE 04/06/2015 Office visit Frank Telles WAITER/WAITRESS COCKTAIL LOUNGE 04/01/2015 Office visit Suki Ibrahim WAITER/WAITRESS COCKTAIL LOUNGE 03/03/2015 Office visit 03/03/2015 Office visit Suki Ibrahim WAITER/WAITRESS COCKTAIL LOUNGE 02/22/2015 Office visit Ty Childers PA-C 09/23/2014 Office visit Linnette Connor WAITER/WAITRESS COCKTAIL LOUNGE 08/23/2014 Office visit Suki Ibrahim WAITER/WAITRESS COCKTAIL LOUNGE 05/22/2012 Office visit Renato Francis MD 05/09/2012 Office visit Suki Ibrahim WAITER/WAITRESS COCKTAIL LOUNGE 11/30/2011 Office visit Suki Ibrahim WAITER/WAITRESS COCKTAIL LOUNGE 11/03/2011 Office visit Suki Ibrahim WAITER/WAITRESS COCKTAIL LOUNGE 02/11/2010 Office visit Amalia KELLER 10/06/2009 Office visit Han Benavidez DO
--- OUTSIDE RECORDS SUMMARY | 2018-05-01 08:37 | XMS REPORT ---
Author Author Suki Ibrahim [facility] Address [address] [place], [place] [address] Care Team Providers Care Online Communications Manager Name Role Phone Suki Ibrahim PCP Unavailable Suki Ibrahim PreferredProvider Unavailable Allergies and Adverse Reactions Name Reaction Notes NO KNOWN DRUG ALLERGIES Plan of Treatment Planned Activity Comments Planned Date Planned Time Plan/Goal SED RATE 03/24/2017 12:00 AM T4 06/10/2017 12:00 AM CRP 07/25/2017 12:00 AM Medications [...] TAKE ONE TABLET BY MOUTH ONCE DAILY Tessalon Perles 100 mg oral capsule 07/03/2017 take 1 capsule (100 mg) by oral route 3 times per day as needed for cough promethazine-codeine 6.25-10 mg/5 mL oral syrup 07/11/2017 take 5 milliliters by oral route every 6 hours as needed, not to exceed 30 mL in 24 hours ProAir HFA 90 mcg/actuation inhalation HFA aerosol inhaler 07/19/2017 inhale 1 puff (90 mcg) by inhalation route every 4-6 hours as needed Singulair 10 mg oral tablet 07/19/2017 take 1 tablet (10 mg) by oral route once daily in the evening cetirizine 10 mg oral tablet 07/19/2017 01/15/2018 [...] per day in the morning and evening Name Start Date Expiration Date SIG [...] daily for 10 days sent to [facility] cyclobenzaprine oral 09/23/2014 citalopram 20 mg oral [...] take 1 tablet by oral route daily Problem List Description Status Onset Anemia Active Anxiety Active Asthma Active Allergic rhinitis, unspecified allergic rhinitis type Active 10/30/2015 Anxiety Active 10/30/2015 Hypothyroidism, Acquired Active 12/14/2016 Insomnia due to other mental disorder Active 12/14/2016 Recurrent major depressive disorder, in partial remission Active 01/19/2017 Vital Signs Date Time BP-Sys(mm[Hg] BP-Amanda(mm[Hg]) HR(bpm) RR(rpm) Temp WT HT HC BMI BSA BMI Percentile O2 Sat(%) 07/25/2017 2:05:00 PM 102 mmHg 63 mmHg [...] 12:00 AM Bicillin CR, 1.2 million units [facility]# 46116-261-61 Reviewed 11/30/2011 12:00 AM COMPLETE CBC W/AUTO [...] 07/03/2017 12:00 AM THER/PROPH/DIAG INJ SC/IM Reviewed 08/23/2014 12:00 AM COMPLETE CBC W/AUTO DIFF WBC Reviewed 08/23/2014 12:00 AM COMPREHEN METABOLIC PANEL Reviewed 08/23/2014 12:00 AM ASSAY THYROID STIM HORMONE Reviewed 09/23/2014 12:00 AM THER/PROPH/DIAG INJ SC/IM Reviewed 09/23/2014 12:00 AM Decadron, Per 1 Mg [facility]# [address]-66 Reviewed 09/23/2014 12:00 AM Depo-Medrol 80 mg [facility]#[address]-98 Reviewed 03/03/2015 12:00 AM THER/PROPH/DIAG INJ SC/IM Reviewed 03/03/2015 12:00 AM Decadron, Per 1 Mg [facility]# [address]-05 Reviewed 03/03/2015 12:00 AM Depo-Medrol 40mg Reviewed 04/01/2015 12:00 AM CYTOPATH C/V MANUAL Reviewed 04/01/2015 12:00 AM CHYLMD TRACH DNA AMP PROBE Reviewed 04/01/2015 12:00 AM N.GONORRHOEAE DNA AMP PROB Reviewed 04/01/2015 12:00 AM ASSAY OF TOTAL TESTOSTERONE Reviewed 06/11/2015 12:00 AM THER/PROPH/DIAG INJ SC/IM Reviewed 06/11/2015 12:00 AM Decadron, Per 1 Mg [facility]# [address]-76 Reviewed 06/11/2015 12:00 AM Depo-Medrol 40mg Reviewed [...] 2:06PM Allergic rhinitis Jul 03 2017 1:27PM Payers Insurance Name Company Name Plan Name Plan Number Policy Number Policy Group Number Start Date BCBS [facility] [id number] N/A [employer] Employee Health Employee Benefit [id number] N/A [employer] Financial Assistance [employer] Eric 100 percent September [employer] [facility] [employer] [id number] N/A History of Encounters Visit Date Visit Type Provider 07/25/2017 Office visit Suki Ibrahim APRN 07/19/2017 Office visit Suki Ibrahim CAKE WRAPPER 07/03/2017 Office visit Shanon Rodriguez CAKE WRAPPER 05/16/2017 Office visit Suki Ibrahim CAKE WRAPPER 03/22/2017 Office visit Suki Ibrahim CAKE WRAPPER 01/19/2017 Office visit Suki Ibrahim CAKE WRAPPER 12/14/2016 Office visit Suki Ibrahim CAKE WRAPPER 09/16/2016 Office visit Suki Ibrahim CAKE WRAPPER 09/05/2016 Office visit Morgan Lozano NP 11/10/2015 Office visit Suki Ibrahim CAKE WRAPPER 10/30/2015 Office visit Suki Ibrahim CAKE WRAPPER 10/09/2015 Office visit Suki Ibrahim CAKE WRAPPER 09/29/2015 Office visit Suki Ibrahim CAKE WRAPPER 07/04/2015 Office visit Linnette Connor CAKE WRAPPER 06/11/2015 Office visit 06/11/2015 Office visit Suki Ibrahim CAKE WRAPPER 04/15/2015 Office visit Suki Ibrahim CAKE WRAPPER 04/07/2015 Office visit Linnette Connor CAKE WRAPPER 04/06/2015 Office visit Frank Telles CAKE WRAPPER 04/01/2015 Office visit Suki Ibrahim CAKE WRAPPER 03/03/2015 Office visit 03/03/2015 Office visit Suki Ibrahim CAKE WRAPPER 02/22/2015 Office visit Ty Childers PA-C 09/23/2014 Office visit Linnette Connor CAKE WRAPPER 08/23/2014 Office visit Suki Ibrahim CAKE WRAPPER 05/22/2012 Office visit Renato Francis MD 05/09/2012 Office visit Suki Ibrahim CAKE WRAPPER 11/30/2011 Office visit Suki Ibrahim APRN 11/03/2011 Office visit Suki Ibrahim APRN 02/11/2010 Office visit Amalia KELLER 10/06/2009 Office visit Han Benavidez DO
--- OUTSIDE RECORDS SUMMARY | 2018-05-01 08:38 | XMS REPORT ---
Author Author Suki Ibrahim [facility] Address [address] [place], [place] [address] Care Team Providers Care Route Rider Name Role Phone Suki Ibrahim PCP Unavailable [...] once daily for 10 days sent to [facility] cyclobenzaprine oral 09/23/2014 citalopram 20 mg [...] 1.2 million units [facility]# 79715-022-49 Reviewed 11/30/2011 12:00 AM COMPLETE CBC W/AUTO [...] Per 1 Mg [facility]# [address]-28 Reviewed 09/23/2014 12:00 AM Depo-Medrol 80 mg [facility]#[address]-94 Reviewed 03/03/2015 12:00 AM THER/PROPH/DIAG INJ SC/IM Reviewed 03/03/2015 12:00 AM Decadron, Per 1 Mg [facility]# [address]-81 Reviewed 03/03/2015 12:00 AM Depo-Medrol 40mg Reviewed 04/01/2015 12:00 AM CYTOPATH C/V MANUAL Reviewed 04/01/2015 12:00 AM CHYLMD TRACH DNA AMP PROBE Reviewed 04/01/2015 12:00 AM N.GONORRHOEAE DNA AMP PROB Reviewed 04/01/2015 12:00 AM ASSAY OF TOTAL TESTOSTERONE Reviewed 06/11/2015 12:00 AM THER/PROPH/DIAG INJ SC/IM Reviewed 06/11/2015 12:00 AM Decadron, Per 1 Mg [facility]# [address]-13 Reviewed 06/11/2015 12:00 AM Depo-Medrol 40mg Reviewed [...] Number Policy Group Number Start Date BCBS [facility] [id number] N/A [employer] Employee Health Employee Benefit [id number] N/A [employer] Financial Assistance ASSET4 Financial Eric 100 percent September [employer] [id number] N/A History of Encounters Visit Date Visit Type Provider 05/16/2017 Office visit Suki Ibrahim HAZMAT CDL DRIVER 03/22/2017 Office visit Suki Ibrahim HAZMAT CDL DRIVER 01/19/2017 Office visit Suki Ibrahim HAZMAT CDL DRIVER 12/14/2016 Office visit Suki Ibrahim HAZMAT CDL DRIVER 09/16/2016 Office visit Suki Ibrahim HAZMAT CDL DRIVER 09/05/2016 Office visit Morgan Lozano NP 11/10/2015 Office visit Suki Ibrahim HAZMAT CDL DRIVER 10/30/2015 Office visit Suki Ibrahim HAZMAT CDL DRIVER 10/09/2015 Office visit Suki Ibrahim HAZMAT CDL DRIVER 09/29/2015 Office visit Suki Ibrahim HAZMAT CDL DRIVER 07/04/2015 Office visit Linnette Connor HAZMAT CDL DRIVER 06/11/2015 Office visit 06/11/2015 Office visit Suki Ibarhim HAZMAT CDL DRIVER 04/15/2015 Office visit Suki Ibrahim HAZMAT CDL DRIVER 04/07/2015 Office visit Linnette Connor HAZMAT CDL DRIVER 04/06/2015 Office visit Frank Telles HAZMAT CDL DRIVER 04/01/2015 Office visit Suki Ibrahim HAZMAT CDL DRIVER 03/03/2015 Office visit 03/03/2015 Office visit Suki Ibrahim HAZMAT CDL DRIVER 02/22/2015 Office visit Ty Childers PA-C 09/23/2014 Office visit Linnette Connor HAZMAT CDL DRIVER 08/23/2014 Office visit Suki Patrice HAZMAT CDL DRIVER 05/22/2012 Office visit Renato Francis MD 05/09/2012 Office visit Suki Ibrahim HAZMAT CDL DRIVER 11/30/2011 Office visit Suki Ibrahim HAZMAT CDL DRIVER 11/03/2011 Office visit Suki Ibrahim HAZMAT CDL DRIVER 02/11/2010 Office visit Amalia KELLER 10/06/2009 Office visit Han Benavidez DO
--- OUTSIDE RECORDS SUMMARY | 2018-05-01 08:39 | XMS REPORT ---
Author Author Suki Ibrahim [facility] Address [address] [place], [place] [address] Care Team Providers Care Strategic Intelligence Officer Name Role Phone Suki Ibrahim PCP Unavailable Suki Ibrahim PreferredProvider Unavailable Allergies and Adverse Reactions Name Reaction Notes NO KNOWN DRUG ALLERGIES Plan of Treatment Planned Activity Comments Planned Date Planned Time Plan/Goal CRP 03/24/2017 12:00 AM SED RATE 03/24/2017 12:00 AM T4 06/10/2017 12:00 AM Medications [...] daily for 10 days sent to [facility] cyclobenzaprine oral 09/23/2014 citalopram 20 mg [...] HC BMI BSA BMI Percentile O2 Sat(%) 07/19/2017 9:16:00 AM 118 mmHg 70 mmHg [...] 12:00 AM Bicillin CR, 1.2 million units [facility]# 46835-320-54 Reviewed 11/30/2011 12:00 AM COMPLETE CBC W/AUTO [...] 12:00 AM Decadron, Per 1 Mg [facility]# [address]-80 Reviewed 09/23/2014 12:00 AM Depo-Medrol 80 mg [facility]#[address]-11 Reviewed 03/03/2015 12:00 AM THER/PROPH/DIAG INJ SC/IM Reviewed 03/03/2015 12:00 AM Decadron, Per 1 Mg [facility]# [address]-78 Reviewed 03/03/2015 12:00 AM Depo-Medrol 40mg Reviewed 04/01/2015 12:00 AM CYTOPATH C/V MANUAL Reviewed 04/01/2015 12:00 AM CHYLMD TRACH DNA AMP PROBE Reviewed 04/01/2015 12:00 AM N.GONORRHOEAE DNA AMP PROB Reviewed 04/01/2015 12:00 AM ASSAY OF TOTAL TESTOSTERONE Reviewed 06/11/2015 12:00 AM THER/PROPH/DIAG INJ SC/IM Reviewed 06/11/2015 12:00 AM Decadron, Per 1 Mg [facility]# [address]-61 Reviewed 06/11/2015 12:00 AM Depo-Medrol 40mg Reviewed [...] 8:25 AM TSH 2.860 uIU/mLTriiodothyronine,Free,Serum 2.70 pg/mL History Of Immunizations Not available. History of [...] to other allergen Jul 19 2017 9:18AM Payers Insurance Name Company Name Plan Name Plan Number Policy Number Policy Group Number Start Date [facility] [id number] N/A [employer] Employee Health Employee Benefit [id number] N/A [employer] Financial Assistance [employer] Financial Eric 100 percent September [employer] [facility] [employer] [id number] N/A History of Encounters Visit Date Visit Type Provider 07/19/2017 Office visit Suki Ibrahim PROJECT ENGINEERING DIRECTOR 07/03/2017 Office visit Shanon Rodriguez PROJECT ENGINEERING DIRECTOR 05/16/2017 Office visit Suki Ibrahim PROJECT ENGINEERING DIRECTOR 03/22/2017 Office visit Suki Ibrahim PROJECT ENGINEERING DIRECTOR 01/19/2017 Office visit Suki Ibrahim PROJECT ENGINEERING DIRECTOR 12/14/2016 Office visit Suki Ibrahim PROJECT ENGINEERING DIRECTOR 09/16/2016 Office visit Suki Ibrahim PROJECT ENGINEERING DIRECTOR 09/05/2016 Office visit Morgan Lozano NP 11/10/2015 Office visit Suki Ibrahim PROJECT ENGINEERING DIRECTOR 10/30/2015 Office visit Suki Ibrahim PROJECT ENGINEERING DIRECTOR 10/09/2015 Office visit Suki Ibrahim PROJECT ENGINEERING DIRECTOR 09/29/2015 Office visit Suki Ibrahim PROJECT ENGINEERING DIRECTOR 07/04/2015 Office visit Linnette Connor PROJECT ENGINEERING DIRECTOR 06/11/2015 Office visit 06/11/2015 Office visit Suki Ibrahim PROJECT ENGINEERING DIRECTOR 04/15/2015 Office visit Suki Ibrahim PROJECT ENGINEERING DIRECTOR 04/07/2015 Office visit Linnette Connor PROJECT ENGINEERING DIRECTOR 04/06/2015 Office visit Frank Telles PROJECT ENGINEERING DIRECTOR 04/01/2015 Office visit Suki Ibrahim PROJECT ENGINEERING DIRECTOR 03/03/2015 Office visit 03/03/2015 Office visit Suki Ibrahim PROJECT ENGINEERING DIRECTOR 02/22/2015 Office visit Ty Childers PA-C 09/23/2014 Office visit Linnette Connor PROJECT ENGINEERING DIRECTOR 08/23/2014 Office visit Suki Ibrahim PROJECT ENGINEERING DIRECTOR 05/22/2012 Office visit Renato Francis MD 05/09/2012 Office visit Suki Ibrahim PROJECT ENGINEERING DIRECTOR 11/30/2011 Office visit Suki Ibrahim PROJECT ENGINEERING DIRECTOR 11/03/2011 Office visit Suki Ibrahim PROJECT ENGINEERING DIRECTOR 02/11/2010 Office visit Amalia KELLER 10/06/2009 Office visit Han Benavidez DO
[2018-05-01 08:40] VITALS: BP 131/65
--- OUTSIDE RECORDS SUMMARY | 2018-05-01 08:40 | XMS REPORT ---
Author Author Suki Ibrahim Organization [facility] Address [address] [place], [place] [address] Care Team Providers Care Suture Polisher Name Role Phone Suki Ibrahim PCP Unavailable [...] daily at the same time each day amoxicillin 500 mg oral tablet 11/10/2015 11/17/2015 take 2 tablets by oral route 2 times a day for 7 days promethazine-codeine 6.25-10 mg/5 mL oral syrup 11/13/2015 [...] once daily for 10 days sent to [facility] cyclobenzaprine oral 09/23/2014 citalopram [...] HC BMI BSA BMI Percentile O2 Sat(%) 11/10/2015 8:58:00 AM 126 mmHg 72 mmHg [...] AM Bicillin CR, 1.2 million units [facility]# 75888-750-76 Reviewed 11/30/2011 12:00 AM COMPLETE CBC W/AUTO [...] 12:00 AM Decadron, Per 1 Mg [facility]# [address]-34 Reviewed 09/23/2014 12:00 AM Depo-Medrol 80 mg [facility]#[address]-11 Reviewed 03/03/2015 12:00 AM THER/PROPH/DIAG INJ SC/IM Reviewed 03/03/2015 12:00 AM Decadron, Per 1 Mg [facility]# [address]-57 Reviewed 03/03/2015 12:00 AM Depo-Medrol 40mg Reviewed 04/01/2015 12:00 AM CYTOPATH C/V MANUAL Returned 04/01/2015 12:00 AM CHYLMD TRACH DNA AMP PROBE Returned 04/01/2015 12:00 AM N.GONORRHOEAE DNA AMP PROB Returned 04/01/2015 12:00 AM ASSAY OF TOTAL TESTOSTERONE Returned 06/11/2015 12:00 AM THER/PROPH/DIAG INJ SC/IM Reviewed 06/11/2015 12:00 AM Felicia Per 1 Mg [facility]# [address]-26 Reviewed 06/11/2015 12:00 AM Depo-Medrol 40mg Reviewed [...] pharyngitis, unspecified etiology Nov 10 2015 9:00AM Payers Insurance Name Company Name Plan Name Plan Number Policy Number Policy Group Number Start Date [employer] Financial Assistance [employer] Financial Eric [id number] N/A [employer] CorporationKind[facility] RahwayKnotchKind[facility] RahwayTourNative [employer] [id number] N/A [employer] Employee Health Employee Benefit [id number] N/A History of Encounters Visit Date Visit Type Provider 11/10/2015 Office visit Suki Ibrahim LOCAL INTERMODAL TRUCK DRIVER 10/30/2015 Office visit Suki Ibrahim LOCAL INTERMODAL TRUCK DRIVER 10/09/2015 Office visit Suki Ibrahim LOCAL INTERMODAL TRUCK DRIVER 09/29/2015 Office visit Suki Ibrahim LOCAL INTERMODAL TRUCK DRIVER 07/04/2015 Office visit Linnette Connor LOCAL INTERMODAL TRUCK DRIVER 06/11/2015 Office visit Suki Ibrahim LOCAL INTERMODAL TRUCK DRIVER 04/15/2015 Office visit Suki Ibrahim LOCAL INTERMODAL TRUCK DRIVER 04/07/2015 Office visit Linnette Connor LOCAL INTERMODAL TRUCK DRIVER 04/06/2015 Office visit Frank Telles LOCAL INTERMODAL TRUCK DRIVER 04/01/2015 Office visit Suki Ibrahim LOCAL INTERMODAL TRUCK DRIVER 03/03/2015 Office visit Suki Ibrahim LOCAL INTERMODAL TRUCK DRIVER 02/22/2015 Office visit Ty Childers PA-C 09/23/2014 Office visit Linnette Connor LOCAL INTERMODAL TRUCK DRIVER 08/23/2014 Office visit Suki Ibrahim LOCAL INTERMODAL TRUCK DRIVER 05/22/2012 Office visit Renato Francis MD 05/09/2012 Office visit Suki Ibrahim LOCAL INTERMODAL TRUCK DRIVER 11/30/2011 Office visit Suki Ibrahim LOCAL INTERMODAL TRUCK DRIVER 11/03/2011 Office visit Suki Ibrahim LOCAL INTERMODAL TRUCK DRIVER 02/11/2010 Office visit Amalia KELLER 10/06/2009 Office visit Han Benavidez DO
--- OUTSIDE RECORDS SUMMARY | 2018-05-01 08:41 | XMS REPORT ---
Author Author Linnette Connor [facility] Address [address] [place], [place] [address] Care Team Providers Care Grounds Supervisor Name Role Phone Linnette Connor PCP Unavailable [...] for 10 days sent to [facility] cyclobenzaprine oral 09/23/2014 citalopram 20 mg oral [...] Mg [facility]# [address]-69 Reviewed 09/23/2014 12:00 AM Depo-Medrol 80 mg [place]#[address]-89 Reviewed 03/03/2015 12:00 AM THER/PROPH/DIAG INJ SC/IM Reviewed 03/03/2015 12:00 AM Decadron, Per 1 Mg [facility]# [address]-26 Reviewed 03/03/2015 12:00 AM Depo-Medrol 40mg Reviewed 04/01/2015 12:00 AM CYTOPATH C/V MANUAL Returned 04/01/2015 12:00 AM CHYLMD TRACH DNA AMP PROBE Returned 04/01/2015 12:00 AM N.GONORRHOEAE DNA AMP PROB Returned 04/01/2015 12:00 AM ASSAY OF TOTAL TESTOSTERONE Returned 06/11/2015 12:00 AM THER/PROPH/DIAG INJ SC/IM Reviewed 06/11/2015 12:00 AM Decadron, Per 1 Mg [facility]# [address]-27 Reviewed 06/11/2015 12:00 AM Depo-Medrol 40mg Reviewed [...] Policy Number Policy Group Number Start Date Henriette [employer]ell[employer] Financial Assistance Henriette [employer] Financial Eric [id number] N/A [employer] [facility]Saint [facility] SussexEll[employer] [id number] N/A [facility] [employer] Employee Health Employee Benefit [id number] N/A History of Encounters Visit Date Visit Type Provider 07/04/2015 Office visit Linnette Connor WELDING TECHNICIAN 06/11/2015 Office visit Suki Ibrahim WELDING TECHNICIAN 04/15/2015 Office visit Suki Ibrahim WELDING TECHNICIAN 04/07/2015 Office visit Linnette Connor WELDING TECHNICIAN 04/06/2015 Office visit Frank Telles WELDING TECHNICIAN 04/01/2015 Office visit Suki Ibrahim WELDING TECHNICIAN 03/03/2015 Office visit Suki Ibrahim WELDING TECHNICIAN 02/22/2015 Office visit Ty Childers PA-C 09/23/2014 Office visit Linnette Connor WELDING TECHNICIAN 08/23/2014 Office visit Suki Ibrahim WELDING TECHNICIAN 05/22/2012 Office visit Renato Francis MD 05/09/2012 Office visit Suki Ibrahim WELDING TECHNICIAN 11/30/2011 Office visit Suki Ibrahim WELDING TECHNICIAN 11/03/2011 Office visit Suki Ibrahim WELDING TECHNICIAN 02/11/2010 Office visit Amalia KELLER 10/06/2009 Office visit Han Benavidez DO
--- OUTSIDE RECORDS SUMMARY | 2018-05-01 08:41 | XMS REPORT ---
Author Author Suki Ibrahim Organization [facility] Address [address] [place], [place] [id number] Care Team Providers Care Analytics Specialist Name Role Phone Suki Ibrahim PCP Unavailable [...] once daily for 10 days sent to [facility] cyclobenzaprine oral 09/23/2014 citalopram 20 [...] 12:00 AM Bicillin CR, 1.2 million units [facility]# 10917-484-00 Reviewed 11/30/2011 12:00 AM COMPLETE CBC W/AUTO [...] 1 Mg [facility]# [address]-56 Reviewed 09/23/2014 12:00 AM Depo-Medrol 80 mg NDC#[address]-76 Reviewed 03/03/2015 12:00 AM THER/PROPH/DIAG INJ SC/IM Reviewed 03/03/2015 12:00 AM Decadron, Per 1 Mg ND# [address]-13 Reviewed 03/03/2015 12:00 AM Depo-Medrol 40mg Reviewed 04/01/2015 12:00 AM CYTOPATH C/V MANUAL Reviewed 04/01/2015 12:00 AM CHYLMD TRACH DNA AMP PROBE Reviewed 04/01/2015 12:00 AM N.GONORRHOEAE DNA AMP PROB Reviewed 04/01/2015 12:00 AM ASSAY OF TOTAL TESTOSTERONE Reviewed 06/11/2015 12:00 AM THER/PROPH/DIAG INJ SC/IM Reviewed 06/11/2015 12:00 AM Decadron, Per 1 Mg [facility]# [address]-60 Reviewed 06/11/2015 12:00 AM Depo-Medrol 40mg Reviewed [...] Policy Number Policy Group Number Start Date [place] [employer] Financial Assistance [place] [employer] Eric 100 percent September [facility] [id number] N/A [facility] Employee Health Employee Benefit [id number] N/A History of Encounters Visit Date Visit Type Provider 03/22/2017 Office visit Suki Ibrahim RANGE MASTER 01/19/2017 Office visit Suki Ibrahim RANGE MASTER 12/14/2016 Office visit Suki Ibrahim RANGE MASTER 09/16/2016 Office visit Suki Ibrahim RANGE MASTER 09/05/2016 Office visit Morgan Lozano NP 11/10/2015 Office visit Suki Ibrahim RANGE MASTER 10/30/2015 Office visit Suki Ibrahim RANGE MASTER 10/09/2015 Office visit Suki Ibrahim RANGE MASTER 09/29/2015 Office visit uSki Ibrahim RANGE MASTER 07/04/2015 Office visit Linnette Connor RANGE MASTER 06/11/2015 Office visit 06/11/2015 Office visit Suki Ibrahim RANGE MASTER 04/15/2015 Office visit Suki Ibrahim RANGE MASTER 04/07/2015 Office visit Linnette Connor RANGE MASTER 04/06/2015 Office visit Frank Telles RANGE MASTER 04/01/2015 Office visit Suki Ibrahim RANGE MASTER 03/03/2015 Office visit 03/03/2015 Office visit Suki Ibrahim RANGE MASTER 02/22/2015 Office visit Ty Childers PA-C 09/23/2014 Office visit Linnette Connor RANGE MASTER 08/23/2014 Office visit Suki Ibrahim RANGE MASTER 05/22/2012 Office visit Renato Francis MD 05/09/2012 Office visit Suki Ibrahim APRN 11/30/2011 Office visit Suki Ibrahim APRN 11/03/2011 Office visit Suki Ibrahim APRN 02/11/2010 Office visit Amalia KELLER 10/06/2009 Office visit Han Benavidez DO
--- OUTSIDE RECORDS SUMMARY | 2018-05-01 08:43 | XMS REPORT ---
Author Author Han Benavidez [facility] Address [address] [place], [place] [address] Care Team Providers Care Insulation Inspector Name Role Phone Han Benavidez PCP Unavailable [...] 1 tablet by oral route once daily Medrol (Cale) oral tablets,dose pack 4 mg 04/07/2015 take as directed Flonase Allergy Relief nasal spray,suspension 50 mcg/actuation 04/16/2015 inhale 1 puff by nasal route 2 times a day Name Start Date Expiration Date SIG Comments [...] daily for 10 days [facility] cyclobenzaprine oral 09/23/2014 citalopram oral tablet 20 [...] HC BMI BSA BMI Percentile O2 Sat(%) 04/15/2015 10:35:00 AM 108 mmHg 75 mmHg [...] tube disorder, bilateral Apr 15 2015 10:40AM Payers Insurance Name Company Name Plan Name Plan Number Policy Number Policy Group Number Start Date [employer] Employee Health Employee Benefit [id number] N/A [employer] Eric [id number] N/A [employer] [id number] N/A History of Encounters Visit Date Visit Type Provider 04/15/2015 Office visit Suki Ibrahim CARDIOLOGY CLINICAL CONSULTANT 04/07/2015 Office visit Linnette Connor CARDIOLOGY CLINICAL CONSULTANT 04/06/2015 Office visit Frank Telles CARDIOLOGY CLINICAL CONSULTANT 04/01/2015 Office visit Suki Ibrahim CARDIOLOGY CLINICAL CONSULTANT 03/03/2015 Office visit Suki Ibrahim CARDIOLOGY CLINICAL CONSULTANT 02/22/2015 Office visit yT Childers PA-C 09/23/2014 Office visit Linnette Connor CARDIOLOGY CLINICAL CONSULTANT 08/23/2014 Office visit Suki Ibrahim CARDIOLOGY CLINICAL CONSULTANT 05/22/2012 Office visit Renato Francis MD 05/09/2012 Office visit Suki Ibrahim CARDIOLOGY CLINICAL CONSULTANT 11/30/2011 Office visit Suki Ibrahim CARDIOLOGY CLINICAL CONSULTANT 11/03/2011 Office visit Suki Ibrahim CARDIOLOGY CLINICAL CONSULTANT 02/11/2010 Office visit Amalia KELLER 10/06/2009 Office visit Han Benavidez DO
--- OUTSIDE RECORDS SUMMARY | 2018-05-01 08:43 | XMS REPORT ---
Author Author Suki Ibrahim [facility] Address [address] [place], [place] [id number] Care Team Providers Care Carton Filling Machine Operator Name Role Phone Suki Ibrahim PCP Suki [...] for 10 days sent to [facility] cyclobenzaprine oral 09/23/2014 citalopram 20 mg oral [...] 12:00 AM Bicillin CR, 1.2 million units [facility]# 59759-821-66 Reviewed 11/30/2011 12:00 AM COMPLETE CBC W/AUTO [...] 09/23/2014 12:00 AM Decadron, Per 1 Mg [facility]# [address]-74 Reviewed 09/23/2014 12:00 AM Depo-Medrol 80 mg [facility]#[address]-92 Reviewed 03/03/2015 12:00 AM THER/PROPH/DIAG INJ SC/IM Reviewed 03/03/2015 12:00 AM Decadron, Per 1 Mg [facility]# [address]-99 Reviewed 03/03/2015 12:00 AM Depo-Medrol 40mg Reviewed 04/01/2015 12:00 AM CYTOPATH C/V MANUAL Reviewed 04/01/2015 12:00 AM CHYLMD TRACH DNA AMP PROBE Reviewed 04/01/2015 12:00 AM N.GONORRHOEAE DNA AMP PROB Reviewed 04/01/2015 12:00 AM ASSAY OF TOTAL TESTOSTERONE Reviewed 06/11/2015 12:00 AM THER/PROPH/DIAG INJ SC/IM Reviewed 06/11/2015 12:00 AM Decadron, Per 1 Mg [facility]# [address]-17 Reviewed 06/11/2015 12:00 AM Depo-Medrol 40mg Reviewed [...] 2017 10:37AM Fatigue Dec 01 2017 3:48PM Payers Insurance Name Company Name Plan Name Plan Number Policy Number Policy Group Number Start Date BCBS [facility] [id number] N/A [employer] Employee Health Employee Benefit [id number] N/A [employer] Financial Assistance [employer] Eric 100 percent September [facility] [employer] [id number] N/A History of Encounters Visit Date Visit Type Provider 11/16/2017 Office visit Suki Ibrahim PRIMARY HEALTH CARE NURSE 11/04/2017 Office visit Shanon Rodriguez PRIMARY HEALTH CARE NURSE 10/14/2017 Office visit Suki Ibrahim PRIMARY HEALTH CARE NURSE 09/28/2017 Office visit Shanon Rodriguez PRIMARY HEALTH CARE NURSE 07/25/2017 Office visit Suki Ibrahim PRIMARY HEALTH CARE NURSE 07/19/2017 Office visit Suki Ibrahim PRIMARY HEALTH CARE NURSE 07/03/2017 Office visit Shanon Rodriguez PRIMARY HEALTH CARE NURSE 05/16/2017 Office visit Suki Ibrahim PRIMARY HEALTH CARE NURSE 03/22/2017 Office visit Suki Ibrahim APRN 01/19/2017 Office visit Suki Ibrahim APRN 12/14/2016 Office visit Suki Ibrahim PRIMARY HEALTH CARE NURSE 09/16/2016 Office visit Suki Ibrahim PRIMARY HEALTH CARE NURSE 09/05/2016 Office visit Morgan Lozano NP 11/10/2015 Office visit Suki Ibrahim PRIMARY HEALTH CARE NURSE 10/30/2015 Office visit Suki Ibrahim PRIMARY HEALTH CARE NURSE 10/09/2015 Office visit Suki Patrice PRIMARY HEALTH CARE NURSE 09/29/2015 Office visit Suki Patrice PRIMARY HEALTH CARE NURSE 07/04/2015 Office visit Linnette Connor PRIMARY HEALTH CARE NURSE 06/11/2015 Office visit 06/11/2015 Office visit Suki Patrice PRIMARY HEALTH CARE NURSE 04/15/2015 Office visit Suki Patrice PRIMARY HEALTH CARE NURSE 04/07/2015 Office visit Linnette Connor PRIMARY HEALTH CARE NURSE 04/06/2015 Office visit Frank Telles PRIMARY HEALTH CARE NURSE 04/01/2015 Office visit Suki Ibrahim PRIMARY HEALTH CARE NURSE 03/03/2015 Office visit 03/03/2015 Office visit Suki Ibrahim PRIMARY HEALTH CARE NURSE 02/22/2015 Office visit Ty Childers PA-C 09/23/2014 Office visit Linnette Connor PRIMARY HEALTH CARE NURSE 08/23/2014 Office visit Suki Ibrahim PRIMARY HEALTH CARE NURSE 05/22/2012 Office visit Renato Francis MD 05/09/2012 Office visit Suki Ibrahim PRIMARY HEALTH CARE NURSE 11/30/2011 Office visit Suki Ibrahim PRIMARY HEALTH CARE NURSE 11/03/2011 Office visit Suki Ibrahim PRIMARY HEALTH CARE NURSE 02/11/2010 Office visit Amalia KELLER 10/06/2009 Office visit Han Benavidez DO
--- OUTSIDE RECORDS SUMMARY | 2018-05-01 08:44 | XMS REPORT ---
Author Author Suki Ibrahim Organization [facility] Address [address] [place], [place] [phone] Care Team Providers Care Duct Layer Helper Name Role Phone Suki Ibrahim PCP Unavailable [...] take 1 tablet by oral route daily Augmentin 875-125 mg oral tablet 05/16/2017 05/23/2017 [...] for 10 days sent to [facility] cyclobenzaprine oral 09/23/2014 citalopram 20 mg oral [...] units [facility]# 13572-123-93 Reviewed 11/30/2011 12:00 AM COMPLETE CBC W/AUTO [...] Mg [facility]# [address]-70 Reviewed 09/23/2014 12:00 AM Depo-Medrol 80 mg [facility]#[address]-28 Reviewed 03/03/2015 12:00 AM THER/PROPH/DIAG INJ SC/IM Reviewed 03/03/2015 12:00 AM Decadron, Per 1 Mg [facility]# [address]-20 Reviewed 03/03/2015 12:00 AM Depo-Medrol 40mg Reviewed 04/01/2015 12:00 AM CYTOPATH C/V MANUAL Reviewed 04/01/2015 12:00 AM CHYLMD TRACH DNA AMP PROBE Reviewed 04/01/2015 12:00 AM N.GONORRHOEAE DNA AMP PROB Reviewed 04/01/2015 12:00 AM ASSAY OF TOTAL TESTOSTERONE Reviewed 06/11/2015 12:00 AM THER/PROPH/DIAG INJ SC/IM Reviewed 06/11/2015 12:00 AM Decadron, Per 1 Mg [facility]# [address]-41 Reviewed 06/11/2015 12:00 AM Depo-Medrol 40mg Reviewed [...] recurrence not specified May 16 2017 10:38AM Payers Insurance Name Company Name Plan Name Plan Number Policy Number Policy Group Number Start Date [facility] [id number] N/A [employer] Financial Assistance [employer] Financial Eric 100 percent September [facility] [id number] N/A [facility] Employee Health Employee Benefit [id number] N/A History of Encounters Visit Date Visit Type Provider 05/16/2017 Office visit Suki Ibrahim SHUTDOWN COORDINATOR 03/22/2017 Office visit Suki Ibrahim SHUTDOWN COORDINATOR 01/19/2017 Office visit Suki Ibrahim SHUTDOWN COORDINATOR 12/14/2016 Office visit Suki Ibrahim SHUTDOWN COORDINATOR 09/16/2016 Office visit Suki Ibrahim SHUTDOWN COORDINATOR 09/05/2016 Office visit Morgan Lozano NP 11/10/2015 Office visit Suki Ibrahim SHUTDOWN COORDINATOR 10/30/2015 Office visit Suki Ibrahim SHUTDOWN COORDINATOR 10/09/2015 Office visit Suki Ibrahim SHUTDOWN COORDINATOR 09/29/2015 Office visit Suki Ibrahim SHUTDOWN COORDINATOR 07/04/2015 Office visit Linnette Connor SHUTDOWN COORDINATOR 06/11/2015 Office visit 06/11/2015 Office visit Suki Ibrahim SHUTDOWN COORDINATOR 04/15/2015 Office visit Suki Ibrahim SHUTDOWN COORDINATOR 04/07/2015 Office visit Linnette Connor SHUTDOWN COORDINATOR 04/06/2015 Office visit Frank Telles SHUTDOWN COORDINATOR 04/01/2015 Office visit Suki Ibrahim SHUTDOWN COORDINATOR 03/03/2015 Office visit 03/03/2015 Office visit Suki Ibrahim SHUTDOWN COORDINATOR 02/22/2015 Office visit Ty Childers PA-C 09/23/2014 Office visit Linnette Connor SHUTDOWN COORDINATOR 08/23/2014 Office visit Suki Ibrahim SHUTDOWN COORDINATOR 05/22/2012 Office visit Renato Francis MD 05/09/2012 Office visit Suki Ibrahim SHUTDOWN COORDINATOR 11/30/2011 Office visit Suki Ibrahim SHUTDOWN COORDINATOR 11/03/2011 Office visit Suki Ibrahim SHUTDOWN COORDINATOR 02/11/2010 Office visit Amalia KELLER 10/06/2009 Office visit Han Benavidez DO
--- OUTSIDE RECORDS SUMMARY | 2018-05-01 08:45 | XMS REPORT ---
Author Author Suki Ibrahim [facility] Address [address] [place], [place] [address] Care Team Providers Care Resident Hall Director Name Role Phone Suki Ibrahim PCP Unavailable Suki Ibrahim PreferredProvider Unavailable Allergies and Adverse Reactions Name Reaction Notes NO KNOWN DRUG ALLERGIES Plan of Treatment Planned Activity Comments Planned Date Planned Time Plan/Goal URIC ACID. 03/24/2017 12:00 AM Medications Active Name Start [...] once daily for 10 days sent to [facility] cyclobenzaprine oral 09/23/2014 citalopram 20 mg [...] 12:00 AM Bicillin CR, 1.2 million units [facility]NOTE 3]# 56494-417-79 Reviewed 11/30/2011 12:00 AM COMPLETE CBC W/AUTO [...] 12:00 AM RBC SED RATE AUTOMATED Returned 08/23/2014 12:00 AM COMPLETE CBC W/AUTO DIFF WBC Reviewed 08/23/2014 12:00 AM COMPREHEN METABOLIC PANEL Reviewed 08/23/2014 12:00 AM ASSAY THYROID STIM HORMONE Reviewed 09/23/2014 12:00 AM THER/PROPH/DIAG INJ SC/IM Reviewed 09/23/2014 12:00 AM Decadron, Per 1 Mg [facility][NOTE 3]# [address]-57 Reviewed 09/23/2014 12:00 AM Depo-Medrol 80 mg [facility][NOTE 3]#[address]-62 Reviewed 03/03/2015 12:00 AM THER/PROPH/DIAG INJ SC/IM Reviewed 03/03/2015 12:00 AM Decadron, Per 1 Mg [facility][NOTE 3]# [address]-30 Reviewed 03/03/2015 12:00 AM Depo-Medrol 40mg Reviewed 04/01/2015 12:00 AM CYTOPATH C/V MANUAL Reviewed 04/01/2015 12:00 AM CHYLMD TRACH DNA AMP PROBE Reviewed 04/01/2015 12:00 AM N.GONORRHOEAE DNA AMP PROB Reviewed 04/01/2015 12:00 AM ASSAY OF TOTAL TESTOSTERONE Reviewed 06/11/2015 12:00 AM THER/PROPH/DIAG INJ SC/IM Reviewed 06/11/2015 12:00 AM Decadron, Per 1 Mg [facility][NOTE 3]# [address]-44 Reviewed 06/11/2015 12:00 AM Depo-Medrol 40mg Reviewed [...] Policy Number Policy Group Number Start Date [employer] Financial Assistance [employer] Financial Eric 100 percent September [employer] [id number] N/A [employer] Employee Health Employee Benefit [id number] N/A History of Encounters Visit Date Visit Type Provider 03/22/2017 Office visit Suki Ibrahim AURICULAR DETOXIFICATION SPECIALIST 01/19/2017 Office visit Suki Ibrahim AURICULAR DETOXIFICATION SPECIALIST 12/14/2016 Office visit Suki Ibrahim AURICULAR DETOXIFICATION SPECIALIST 09/16/2016 Office visit Suki Ibrahim AURICULAR DETOXIFICATION SPECIALIST 09/05/2016 Office visit Morgan Lozano NP 11/10/2015 Office visit Suki Ibrahim AURICULAR DETOXIFICATION SPECIALIST 10/30/2015 Office visit Suki Ibrahim AURICULAR DETOXIFICATION SPECIALIST 10/09/2015 Office visit Suki Ibrahim AURICULAR DETOXIFICATION SPECIALIST 09/29/2015 Office visit Suki Ibrahim AURICULAR DETOXIFICATION SPECIALIST 07/04/2015 Office visit Linnette Connor AURICULAR DETOXIFICATION SPECIALIST 06/11/2015 Office visit 06/11/2015 Office visit Suki Ibrahim AURICULAR DETOXIFICATION SPECIALIST 04/15/2015 Office visit Suki Ibrahim AURICULAR DETOXIFICATION SPECIALIST 04/07/2015 Office visit Linnette Connor AURICULAR DETOXIFICATION SPECIALIST 04/06/2015 Office visit Frank Telles AURICULAR DETOXIFICATION SPECIALIST 04/01/2015 Office visit Suki Ibrahim AURICULAR DETOXIFICATION SPECIALIST 03/03/2015 Office visit 03/03/2015 Office visit Suki Ibrahim AURICULAR DETOXIFICATION SPECIALIST 02/22/2015 Office visit Ty Childers PA-C 09/23/2014 Office visit Linnette Connor AURICULAR DETOXIFICATION SPECIALIST 08/23/2014 Office visit Suki Ibrahim AURICULAR DETOXIFICATION SPECIALIST 05/22/2012 Office visit Renato Francis MD 05/09/2012 Office visit Suki Ibrahim AURICULAR DETOXIFICATION SPECIALIST 11/30/2011 Office visit Suki Ibrahim AURICULAR DETOXIFICATION SPECIALIST 11/03/2011 Office visit Suki Ibrahim AURICULAR DETOXIFICATION SPECIALIST 02/11/2010 Office visit Amalia KELLER 10/06/2009 Office visit Han Benavidez DO
--- OUTSIDE RECORDS SUMMARY | 2018-05-01 08:46 | XMS REPORT ---
Author Author Suki Ibrahim [facility] Address [address] [place], [place] [address] Care Team Providers Care Storage Management Architect Name Role Phone Suki Ibrahim PCP Unavailable [...] once daily for 10 days sent to [facility] cyclobenzaprine oral 09/23/2014 citalopram 20 mg [...] CR, 1.2 million units [facility]# 15152-187-93 Reviewed 11/30/2011 12:00 AM COMPLETE CBC W/AUTO [...] Decadron, Per 1 Mg [facility]# [address]-01 Reviewed 09/23/2014 12:00 AM Depo-Medrol 80 mg [facility]#[address]-81 Reviewed 03/03/2015 12:00 AM THER/PROPH/DIAG INJ SC/IM Reviewed 03/03/2015 12:00 AM Decadron, Per 1 Mg [facility]# [address]-55 Reviewed 03/03/2015 12:00 AM Depo-Medrol 40mg Reviewed 04/01/2015 12:00 AM CYTOPATH C/V MANUAL Reviewed 04/01/2015 12:00 AM CHYLMD TRACH DNA AMP PROBE Reviewed 04/01/2015 12:00 AM N.GONORRHOEAE DNA AMP PROB Reviewed 04/01/2015 12:00 AM ASSAY OF TOTAL TESTOSTERONE Reviewed 06/11/2015 12:00 AM THER/PROPH/DIAG INJ SC/IM Reviewed 06/11/2015 12:00 AM Decadron, Per 1 Mg [facility]# [address]-96 Reviewed 06/11/2015 12:00 AM Depo-Medrol 40mg Reviewed [...] Policy Group Number Start Date BCBS [facility] [id number] N/A [employer] Employee Health Employee Benefit [id number] N/A [employer] Financial Assistance [employer] Eric 100 percent September [facility] [id number] N/A History of Encounters Visit Date Visit Type Provider 05/16/2017 Office visit Suki Ibrahim APRN 03/22/2017 Office visit Suki Ibrahim SALON SHAMPOO ASSISTANT 01/19/2017 Office visit Suki Ibrahim APRN 12/14/2016 Office visit Suki Ibrahim SALON SHAMPOO ASSISTANT 09/16/2016 Office visit Suki Ibrahim SALON SHAMPOO ASSISTANT 09/05/2016 Office visit Morgan Lozano NP 11/10/2015 Office visit Suki Ibrahim SALON SHAMPOO ASSISTANT 10/30/2015 Office visit Suki Ibrahim SALON SHAMPOO ASSISTANT 10/09/2015 Office visit Suki Ibrahim SALON SHAMPOO ASSISTANT 09/29/2015 Office visit Suki Ibrahim SALON SHAMPOO ASSISTANT 07/04/2015 Office visit Linnette Connor SALON SHAMPOO ASSISTANT 06/11/2015 Office visit 06/11/2015 Office visit Suki Ibrahim SALON SHAMPOO ASSISTANT 04/15/2015 Office visit Suki Ibrahim SALON SHAMPOO ASSISTANT 04/07/2015 Office visit Linnette Connor SALON SHAMPOO ASSISTANT 04/06/2015 Office visit Frank Telles SALON SHAMPOO ASSISTANT 04/01/2015 Office visit Suki Ibrahim SALON SHAMPOO ASSISTANT 03/03/2015 Office visit 03/03/2015 Office visit Suki Ibrahim SALON SHAMPOO ASSISTANT 02/22/2015 Office visit Ty Childers PA-C 09/23/2014 Office visit Linnette Connor SALON SHAMPOO ASSISTANT 08/23/2014 Office visit Suki Ibrahim SALON SHAMPOO ASSISTANT 05/22/2012 Office visit Renato Francis MD 05/09/2012 Office visit Suki Ibrahim SALON SHAMPOO ASSISTANT 11/30/2011 Office visit Suki Ibrahim SALON SHAMPOO ASSISTANT 11/03/2011 Office visit Suki Ibrahim SALON SHAMPOO ASSISTANT 02/11/2010 Office visit Amalia KELLER 10/06/2009 Office visit Han Benavidez DO
--- OUTSIDE RECORDS SUMMARY | 2018-05-01 08:47 | XMS REPORT ---
Author Author Suki Ibrahim [facility] Address [address] [place], [place] [address] Care Team Providers Care Accounting Lecturer Name Role Phone Suki Ibrahim PCP Unavailable [...] 2 times a day for 7 days Name Start Date Expiration [...] CR, 1.2 million units [facility]# 70576-298-12 Reviewed 11/30/2011 12:00 AM COMPLETE CBC W/AUTO [...] Decadron, Per 1 Mg [facility]# [address]-17 Reviewed 09/23/2014 12:00 AM Depo-Medrol 80 mg [facility]#[address]-12 Reviewed 03/03/2015 12:00 AM THER/PROPH/DIAG INJ SC/IM Reviewed 03/03/2015 12:00 AM Decadron, Per 1 Mg [facility]# [address]-88 Reviewed 03/03/2015 12:00 AM Depo-Medrol 40mg Reviewed 04/01/2015 12:00 AM CYTOPATH C/V MANUAL Returned 04/01/2015 12:00 AM CHYLMD TRACH DNA AMP PROBE Returned 04/01/2015 12:00 AM N.GONORRHOEAE DNA AMP PROB Returned 04/01/2015 12:00 AM ASSAY OF TOTAL TESTOSTERONE Returned 06/11/2015 12:00 AM THER/PROPH/DIAG INJ SC/IM Reviewed 06/11/2015 12:00 AM Decadron, Per 1 Mg [facility]# [address]-83 Reviewed 06/11/2015 12:00 AM Depo-Medrol 40mg Reviewed [...] Policy Number Policy Group Number Start Date [place] [employer] Financial Assistance [place] [employer] Eric [id number] N/A [employer] [facility] [id number] N/A [employer] Employee Health Employee Benefit [id number] N/A History of Encounters Visit Date Visit Type Provider 11/10/2015 Office visit Suki Ibrahim FELLER BUNCHER OPERATOR 10/30/2015 Office visit Suki Ibrahim FELLER BUNCHER OPERATOR 10/09/2015 Office visit Suki Ibrahim FELLER BUNCHER OPERATOR 09/29/2015 Office visit Suki Ibrahim FELLER BUNCHER OPERATOR 07/04/2015 Office visit Linnette Connor FELLER BUNCHER OPERATOR 06/11/2015 Office visit Suki Ibrahim FELLER BUNCHER OPERATOR 04/15/2015 Office visit Suki Ibrahim FELLER BUNCHER OPERATOR 04/07/2015 Office visit Linnette Connor FELLER BUNCHER OPERATOR 04/06/2015 Office visit Frank Telles FELLER BUNCHER OPERATOR 04/01/2015 Office visit Suki Ibrahim FELLER BUNCHER OPERATOR 03/03/2015 Office visit Suki Ibrahim FELLER BUNCHER OPERATOR 02/22/2015 Office visit Ty Childers PA-C 09/23/2014 Office visit Linnette Connor FELLER BUNCHER OPERATOR 08/23/2014 Office visit Suki Ibrahim FELLER BUNCHER OPERATOR 05/22/2012 Office visit Renato Francis MD 05/09/2012 Office visit Suki Ibrahim FELLER BUNCHER OPERATOR 11/30/2011 Office visit Suki Ibrahim FELLER BUNCHER OPERATOR 11/03/2011 Office visit Suki Ibrahim FELLER BUNCHER OPERATOR 02/11/2010 Office visit Amalia KELLER 10/06/2009 Office visit Han Benavidez DO
--- OUTSIDE RECORDS SUMMARY | 2018-05-01 08:47 | XMS REPORT ---
Author Author Suki Ibrahim [facility] Address [address] [place], [place] [address] Care Team Providers Care Dinkey Locomotive Operator Name Role Phone Suki Ibrahim PCP [...] 1 tablet by oral route once daily Xanax 0.25 mg oral tablet 01/19/2017 take 1 tablet by oral route once a day (at bedtime) as needed Name Start Date Expiration Date SIG [...] daily for 10 days sent to [facility] cyclobenzaprine oral 09/23/2014 citalopram 20 mg oral [...] by oral route once daily at bedtime Problem List Description Status Onset Anemia Active Anxiety Active Asthma Active Allergic rhinitis, unspecified allergic rhinitis type Active 10/30/2015 Anxiety Active 10/30/2015 Hypothyroidism, Acquired Active 12/14/2016 Insomnia due to other mental disorder Active 12/14/2016 Recurrent major depressive disorder, in partial remission Active 01/19/2017 Vital Signs Date Time BP-Sys(mm[Hg] BP-Amanda(mm[Hg]) HR(bpm) RR(rpm) Temp WT HT HC BMI BSA BMI Percentile O2 Sat(%) 01/19/2017 11:22:00 AM 112 mmHg 66 mmHg [...] AM Bicillin CR, 1.2 million units [facility]# 00686-007-07 Reviewed 11/30/2011 12:00 AM COMPLETE CBC W/AUTO [...] 12:00 AM Decadron, Per 1 Mg [facility]# [address]-99 Reviewed 09/23/2014 12:00 AM Depo-Medrol 80 mg [facility]#[address]-63 Reviewed 03/03/2015 12:00 AM THER/PROPH/DIAG INJ SC/IM Reviewed 03/03/2015 12:00 AM Decadron, Per 1 Mg [facility]# [address]-51 Reviewed 03/03/2015 12:00 AM Depo-Medrol 40mg Reviewed 04/01/2015 12:00 AM CYTOPATH C/V MANUAL Reviewed 04/01/2015 12:00 AM CHYLMD TRACH DNA AMP PROBE Reviewed 04/01/2015 12:00 AM N.GONORRHOEAE DNA AMP PROB Reviewed 04/01/2015 12:00 AM ASSAY OF TOTAL TESTOSTERONE Reviewed 06/11/2015 12:00 AM THER/PROPH/DIAG INJ SC/IM Reviewed 06/11/2015 12:00 AM Decadron, Per 1 Mg [facility]# [address]-39 Reviewed 06/11/2015 12:00 AM Depo-Medrol 40mg Reviewed [...] of contraceptive pills Jan 19 2017 11:23AM Payers Insurance Name Company Name Plan Name Plan Number Policy Number Policy Group Number Start Date [place] Employee [employer] Employee Benefit [id number] N/A [employer] Financial Assistance [employer] Financial Eric [id number] N/A [employer] [id number] N/A History of Encounters Visit Date Visit Type Provider 01/19/2017 Office visit Suki Walker DRYWALL SANDER 12/14/2016 Office visit Suki Ibrahim DRYWALL SANDER 09/16/2016 Office visit Suki Ibrahim DRYWALL SANDER 09/05/2016 Office visit Morgan Lozano NP 11/10/2015 Office visit Suki Ibrahim DRYWALL SANDER 10/30/2015 Office visit Suki Ibrahim DRYWALL SANDER 10/09/2015 Office visit Suki Ibrahim DRYWALL SANDER 09/29/2015 Office visit Suki Ibrahim DRYWALL SANDER 07/04/2015 Office visit Linnette Connor DRYWALL SANDER 06/11/2015 Office visit 06/11/2015 Office visit Suki Ibrahim DRYWALL SANDER 04/15/2015 Office visit Suki Ibrahim DRYWALL SANDER 04/07/2015 Office visit Linnette Connor DRYWALL SANDER 04/06/2015 Office visit Frank Telles DRYWALL SANDER 04/01/2015 Office visit Suki Ibrahim DRYWALL SANDER 03/03/2015 Office visit 03/03/2015 Office visit Suki Ibrahim DRYWALL SANDER 02/22/2015 Office visit Ty Childers PA-C 09/23/2014 Office visit Linnette Connor DRYWALL SANDER 08/23/2014 Office visit Suki Ibrahim DRYWALL SANDER 05/22/2012 Office visit Renato Francis MD 05/09/2012 Office visit Suki Patrice DRYWALL SANDER 11/30/2011 Office visit Suki Patrice DRYWALL SANDER 11/03/2011 Office visit Suki Ibrahim DRYWALL SANDER 02/11/2010 Office visit Amalia KELLER 10/06/2009 Office visit Han Benavidez DO
--- OUTSIDE RECORDS SUMMARY | 2018-05-01 08:48 | XMS REPORT ---
Author Author Han Benavidez [facility] Address [address] [place], [place] [address] Care Team Providers Care Turf Farm Worker Name Role Phone Han Benavidez PCP Unavailable [...] for 10 days sent to [facility] cyclobenzaprine oral 09/23/2014 citalopram oral tablet [...] HC BMI BSA BMI Percentile O2 Sat(%) 04/06/2015 1:35:00 PM 104 mmHg 72 mmHg [...] 1:40PM Mild concussion Apr 06 2015 1:40PM Payers Insurance Name Company Name Plan Name Plan Number Policy Number Policy Group Number Start Date [facility] [employer] Employee Health Employee Benefit [id number] N/A [employer] Financial Assistance [employer] Financial Eric [id number] N/A History of Encounters Visit Date Visit Type Provider 04/06/2015 Office visit Frank Telles CERTIFIED MIDWIFE 04/01/2015 Office visit Suki Ibrahim CERTIFIED MIDWIFE 03/03/2015 Office visit Suki Ibrahim CERTIFIED MIDWIFE 02/22/2015 Office visit Ty Childers PA-C 09/23/2014 Office visit Linnette Connor CERTIFIED MIDWIFE 08/23/2014 Office visit Suki Ibrahim CERTIFIED MIDWIFE 05/22/2012 Office visit Renato Francis MD 05/09/2012 Office visit Suki Ibrahim CERTIFIED MIDWIFE 11/30/2011 Office visit Suki Ibrahim CERTIFIED MIDWIFE 11/03/2011 Office visit Suki Ibrahim CERTIFIED MIDWIFE 02/11/2010 Office visit Amalia KELLER 10/06/2009 Office visit Han Benavidez DO
--- OUTSIDE RECORDS SUMMARY | 2018-05-01 08:49 | XMS REPORT ---
Author Author Suki Ibrahim [facility] Address [address] [place], [place] [address] Care Team Providers Care Packer Sausage And Wiener Name Role Phone Suki Ibrahim PCP Unavailable [...] daily at the same time each day Name Start Date Expiration Date SIG [...] for 10 days sent to [facility] cyclobenzaprine oral 09/23/2014 citalopram 20 mg oral [...] HC BMI BSA BMI Percentile O2 Sat(%) 10/30/2015 3:20:00 PM 126 mmHg 64 mmHg [...] Per 1 Mg [facility]# [address]-62 Reviewed 09/23/2014 12:00 AM Depo-Medrol 80 mg [facility]#[address]-66 Reviewed 03/03/2015 12:00 AM THER/PROPH/DIAG INJ SC/IM Reviewed 03/03/2015 12:00 AM Decadron, Per 1 Mg [facility]# [address]-60 Reviewed 03/03/2015 12:00 AM Depo-Medrol 40mg Reviewed 04/01/2015 12:00 AM CYTOPATH C/V MANUAL Returned 04/01/2015 12:00 AM CHYLMD TRACH DNA AMP PROBE Returned 04/01/2015 12:00 AM N.GONORRHOEAE DNA AMP PROB Returned 04/01/2015 12:00 AM ASSAY OF TOTAL TESTOSTERONE Returned 06/11/2015 12:00 AM THER/PROPH/DIAG INJ SC/IM Reviewed 06/11/2015 12:00 AM Decadron, Per 1 Mg [facility]# [address]-36 Reviewed 06/11/2015 12:00 AM Depo-Medrol 40mg Reviewed [...] allergic rhinitis type Oct 30 2015 3:22PM Payers Insurance Name Company Name Plan Name Plan Number Policy Number Policy Group Number Start Date [facility] Financial Assistance [facility] Financial Eric [id number] N/A [facility] [employer] [id number] N/A [facility] Employee Health Employee Benefit [id number] N/A History of Encounters Visit Date Visit Type Provider 10/30/2015 Office visit Suki Ibrahim HYDRAULIC BOOM OPERATOR 10/09/2015 Office visit Suki Ibrahim HYDRAULIC BOOM OPERATOR 09/29/2015 Office visit Suki Ibrahim HYDRAULIC BOOM OPERATOR 07/04/2015 Office visit Linnette Connor HYDRAULIC BOOM OPERATOR 06/11/2015 Office visit Suki Ibrahim HYDRAULIC BOOM OPERATOR 04/15/2015 Office visit Suki Ibrahim HYDRAULIC BOOM OPERATOR 04/07/2015 Office visit Linnette Connor HYDRAULIC BOOM OPERATOR 04/06/2015 Office visit Frank Telles HYDRAULIC BOOM OPERATOR 04/01/2015 Office visit Suki Ibrahim HYDRAULIC BOOM OPERATOR 03/03/2015 Office visit Suki Ibrahim HYDRAULIC BOOM OPERATOR 02/22/2015 Office visit Ty Childers PA-C 09/23/2014 Office visit Linnette Connor HYDRAULIC BOOM OPERATOR 08/23/2014 Office visit Suki Ibrahim HYDRAULIC BOOM OPERATOR 05/22/2012 Office visit Renato Francis MD 05/09/2012 Office visit Suki Ibrahim HYDRAULIC BOOM OPERATOR 11/30/2011 Office visit Suki Ibrahim HYDRAULIC BOOM OPERATOR 11/03/2011 Office visit Suki Ibrahim HYDRAULIC BOOM OPERATOR 02/11/2010 Office visit Amalia KELLER 10/06/2009 Office visit Han Benavidez DO
--- OUTSIDE RECORDS SUMMARY | 2018-05-01 08:50 | XMS REPORT ---
Author Suki Ba Organization [facility] Address [address] [place], [place] [address] Care Team Providers Care Buffer Nickel Name Role Phone Suki Ibrahim PCP Unavailable Allergies and Adverse Reactions Name Reaction Notes NO KNOWN DRUG ALLERGIES Plan of Treatment Planned Activity Comments Planned Date Planned Time Plan/Goal METABOLIC PANEL TOTAL CA 09/29/2015 12:00 AM GLUCOSE TOLERANCE TEST (GTT) 09/29/2015 12:00 AM Medications Active Name Start Date [...] once daily for 10 days sent to [facility] cyclobenzaprine oral 09/23/2014 citalopram 20 mg [...] Per 1 Mg [facility]# [address]-86 Reviewed 09/23/2014 12:00 AM Depo-Medrol 80 mg [facility]#[address]-22 Reviewed 03/03/2015 12:00 AM THER/PROPH/DIAG INJ SC/IM Reviewed 03/03/2015 12:00 AM Decadron, Per 1 Mg [facility]# [address]-98 Reviewed 03/03/2015 12:00 AM Depo-Medrol 40mg Reviewed 04/01/2015 12:00 AM CYTOPATH C/V MANUAL Returned 04/01/2015 12:00 AM CHYLMD TRACH DNA AMP PROBE Returned 04/01/2015 12:00 AM N.GONORRHOEAE DNA AMP PROB Returned 04/01/2015 12:00 AM ASSAY OF TOTAL TESTOSTERONE Returned 06/11/2015 12:00 AM THER/PROPH/DIAG INJ SC/IM Reviewed 06/11/2015 12:00 AM Decadron, Per 1 Mg [facility]# [address]-03 Reviewed 06/11/2015 12:00 AM Depo-Medrol 40mg Reviewed [...] Policy Number Policy Group Number Start Date [facility] Financial Assistance [place] [employer] Eric [id number] N/A [employer] [id number] N/A [facility] Employee Benefit [id number] N/A History of Encounters Visit Date Visit Type Provider 09/29/2015 Office visit Suki Ibrahim DIRT CONTRACTOR 07/04/2015 Office visit Linnette Connor DIRT CONTRACTOR 06/11/2015 Office visit Suki Ibrahim DIRT CONTRACTOR 04/15/2015 Office visit Suki Ibrahim DIRT CONTRACTOR 04/07/2015 Office visit Linnette Connor DIRT CONTRACTOR 04/06/2015 Office visit Frank Telles DIRT CONTRACTOR 04/01/2015 Office visit Suki Ibrahim DIRT CONTRACTOR 03/03/2015 Office visit Suki Ibrahim DIRT CONTRACTOR 02/22/2015 Office visit Ty Childers PA-C 09/23/2014 Office visit Linnette Connor DIRT CONTRACTOR 08/23/2014 Office visit Suki Ibrahim DIRT CONTRACTOR 05/22/2012 Office visit Renato Francis MD 05/09/2012 Office visit Suki Ibrahim DIRT CONTRACTOR 11/30/2011 Office visit Suki Ibrahim DIRT CONTRACTOR 11/03/2011 Office visit Suki Ibrahim DIRT CONTRACTOR 02/11/2010 Office visit Amalia KELLER 10/06/2009 Office visit Han Benavidez DO
--- OUTSIDE RECORDS SUMMARY | 2018-05-01 08:50 | XMS REPORT ---
Author Author Suki Ibrahim [facility] Address [address] [place], [place] [address] Care Team Providers Care Manager Mobility Name Role Phone Suki Ibrahim PCP Unavailable [...] once daily for 10 days [facility] cyclobenzaprine oral 09/23/2014 citalopram 20 mg [...] 12:00 AM Bicillin CR, 1.2 million units [facility]# 51896-299-08 Reviewed 11/30/2011 12:00 AM COMPLETE CBC W/AUTO [...] ACID Reviewed 03/24/2017 12:00 AM C-REACTIVE PROTEIN Returned 06/09/2017 12:00 AM ASSAY THYROID STIM HORMONE Reviewed 06/10/2017 12:00 AM FREE ASSAY (FT-3) Reviewed 07/03/2017 12:00 AM THER/PROPH/DIAG INJ SC/IM Reviewed 07/25/2017 12:00 AM COMPLETE CBC W/AUTO DIFF WBC Returned 07/25/2017 12:00 AM FIBRIN DEGRADE SEMIQUANT Returned 07/25/2017 12:00 AM CHEST X-RAY 2VW FRONTAL&LATL Returned 08/23/2014 12:00 AM COMPLETE CBC W/AUTO DIFF WBC Reviewed 08/23/2014 12:00 AM COMPREHEN METABOLIC PANEL Reviewed 08/23/2014 12:00 AM ASSAY THYROID STIM HORMONE Reviewed 09/23/2014 12:00 AM THER/PROPH/DIAG INJ SC/IM Reviewed 09/23/2014 12:00 AM Decadron, Per 1 Mg [place]# [address]-23 Reviewed 09/23/2014 12:00 AM Depo-Medrol 80 mg [facility]#[address]-01 Reviewed 03/03/2015 12:00 AM THER/PROPH/DIAG INJ SC/IM Reviewed 03/03/2015 12:00 AM Decadron, Per 1 Mg [facility]# [address]-30 Reviewed 03/03/2015 12:00 AM Depo-Medrol 40mg Reviewed 04/01/2015 12:00 AM CYTOPATH C/V MANUAL Reviewed 04/01/2015 12:00 AM CHYLMD TRACH DNA AMP PROBE Reviewed 04/01/2015 12:00 AM N.GONORRHOEAE DNA AMP PROB Reviewed 04/01/2015 12:00 AM ASSAY OF TOTAL TESTOSTERONE Reviewed 06/11/2015 12:00 AM THER/PROPH/DIAG INJ SC/IM Reviewed 06/11/2015 12:00 AM Decadron, Per 1 Mg [facility]# [address]-94 Reviewed 06/11/2015 12:00 AM Depo-Medrol 40mg Reviewed [...] 2017 2:06PM Cough Jul 25 2017 2:06PM Payers Insurance Name Company Name Plan Name Plan Number Policy Number Policy Group Number Start Date [facility] [id number] N/A [employer] Employee Health Employee Benefit [id number] N/A [employer] Financial [employer] Eric 100 percent September [facility] [id number] N/A History of Encounters Visit Date Visit Type Provider 07/25/2017 Office visit Suki Ibrahim APRN 07/19/2017 Office visit Suki Ibrahim APRN 07/03/2017 Office visit Shanon Rodriguez APRN 05/16/2017 Office visit Suki Ibrahim APRN 03/22/2017 Office visit Suki Ibrahim APRN 01/19/2017 Office visit Suki Ibrahim QUALITY DIRECTOR 12/14/2016 Office visit Suki Ibrahim QUALITY DIRECTOR 09/16/2016 Office visit Suki Ibrahim QUALITY DIRECTOR 09/05/2016 Office visit Morgan Lozano NP 11/10/2015 Office visit Suki Patrice QUALITY DIRECTOR 10/30/2015 Office visit Suki Ibrhaim QUALITY DIRECTOR 10/09/2015 Office visit Suki Ibrahim QUALITY DIRECTOR 09/29/2015 Office visit Suki Ibrahim QUALITY DIRECTOR 07/04/2015 Office visit Linnette Connor QUALITY DIRECTOR 06/11/2015 Office visit 06/11/2015 Office visit Suki Ibrahim QUALITY DIRECTOR 04/15/2015 Office visit Suki Ibrahim QUALITY DIRECTOR 04/07/2015 Office visit Linnette Connor QUALITY DIRECTOR 04/06/2015 Office visit Frank Telles QUALITY DIRECTOR 04/01/2015 Office visit Suki Patrice QUALITY DIRECTOR 03/03/2015 Office visit 03/03/2015 Office visit Suki Ibrahim QUALITY DIRECTOR 02/22/2015 Office visit Ty Childers PA-C 09/23/2014 Office visit Linnette Connor QUALITY DIRECTOR 08/23/2014 Office visit Suki Ibrahim QUALITY DIRECTOR 05/22/2012 Office visit Renato Francis MD 05/09/2012 Office visit Suki Ibrahim QUALITY DIRECTOR 11/30/2011 Office visit Suki Patrice QUALITY DIRECTOR 11/03/2011 Office visit Suki Patrice QUALITY DIRECTOR 02/11/2010 Office visit Amalia KELLER 10/06/2009 Office visit Han Benavidez DO
[2018-05-01] MEDS ORDERED: ROPIVACAINE 5MG/ML 30ML VIAL ONE (08:51)
[2018-05-01] MEDS ORDERED: LIDOCAINE/EPI 2% 1:100,00 (XYLOCAINE) 20 ML VIAL ONE ×2 (08:51→11:56)
--- OUTSIDE RECORDS SUMMARY | 2018-05-01 08:51 | XMS REPORT ---
Author Author Suki Ibrahim [facility] Address [address] [place], [place] [address] Care Team Providers Care Oil Filters Inspector Name Role Phone Suki Ibrahim PCP Unavailable Suki Ibrahim PreferredProvider Unavailable Allergies and Adverse Reactions Name Reaction Notes NO KNOWN DRUG ALLERGIES Plan of Treatment Planned Activity Comments Planned Date Planned Time Plan/Goal BERNARD W/REFLEX 03/22/2017 12:00 AM Medications Active Name Start [...] once daily for 10 days sent to [facility] cyclobenzaprine oral 09/23/2014 citalopram 20 [...] AM Bicillin CR, 1.[address] [facility]# 79872-545-10 Reviewed 11/30/2011 12:00 AM COMPLETE CBC W/AUTO [...] RHEUMATOID FACTOR QUANT Returned 03/22/2017 12:00 AM C-REACTIVE PROTEIN Returned 03/22/2017 12:00 AM RBC SED RATE AUTOMATED Returned 08/23/2014 12:00 AM COMPLETE CBC W/AUTO DIFF WBC Reviewed 08/23/2014 12:00 AM COMPREHEN METABOLIC PANEL Reviewed 08/23/2014 12:00 AM ASSAY THYROID STIM HORMONE Reviewed 09/23/2014 12:00 AM THER/PROPH/DIAG INJ SC/IM Reviewed 09/23/2014 12:00 AM Decadron, Per [address] [facility]# [address]-15 Reviewed 09/23/2014 12:00 AM Depo-Medrol [address] [facility]#[address]-59 Reviewed 03/03/2015 12:00 AM THER/PROPH/DIAG INJ SC/IM Reviewed 03/03/2015 12:00 AM Decadron, Per [address] [facility]# [address]-86 Reviewed 03/03/2015 12:00 AM Depo-Medrol 40mg Reviewed 04/01/2015 12:00 AM CYTOPATH C/V MANUAL Reviewed 04/01/2015 12:00 AM CHYLMD TRACH DNA AMP PROBE Reviewed 04/01/2015 12:00 AM N.GONORRHOEAE DNA AMP PROB Reviewed 04/01/2015 12:00 AM ASSAY OF TOTAL TESTOSTERONE Reviewed 06/11/2015 12:00 AM THER/PROPH/DIAG INJ SC/IM Reviewed 06/11/2015 12:00 AM Decadron, Per [address] [facility]# [address]-99 Reviewed 06/11/2015 12:00 AM Depo-Medrol 40mg Reviewed [...] 11.0 mg/LSEDRATE 25.0 mm/hrRA Factor < 15.0 IU/mL History Of Immunizations Not available. History of [...] Policy Number Policy Group Number Start Date [facility] Financial Assistance [employer] 100 percent September [employer] [id number] N/A [employer] Employee [employer] Employee Benefit [id number] N/A History of Encounters Visit Date Visit Type Provider 03/22/2017 Office visit Suki Ibrahim SR. SOCIAL MEDIA & MOBILE MANAGER 01/19/2017 Office visit Suki Ibrahim SR. SOCIAL MEDIA & MOBILE MANAGER 12/14/2016 Office visit Suki Ibrahim SR. SOCIAL MEDIA & MOBILE MANAGER 09/16/2016 Office visit Suki Ibrahim SR. SOCIAL MEDIA & MOBILE MANAGER 09/05/2016 Office visit Morgan Lozano NP 11/10/2015 Office visit Suki Ibrahim SR. SOCIAL MEDIA & MOBILE MANAGER 10/30/2015 Office visit Suki Ibrahim SR. SOCIAL MEDIA & MOBILE MANAGER 10/09/2015 Office visit Suki Ibrahim SR. SOCIAL MEDIA & MOBILE MANAGER 09/29/2015 Office visit Suki Ibrahim SR. SOCIAL MEDIA & MOBILE MANAGER 07/04/2015 Office visit Linnette Connor SR. SOCIAL MEDIA & MOBILE MANAGER 06/11/2015 Office visit 06/11/2015 Office visit Suki Ibrahim SR. SOCIAL MEDIA & MOBILE MANAGER 04/15/2015 Office visit Suki Ibrahim SR. SOCIAL MEDIA & MOBILE MANAGER 04/07/2015 Office visit Linnette Connor SR. SOCIAL MEDIA & MOBILE MANAGER 04/06/2015 Office visit Frank Telles SR. SOCIAL MEDIA & MOBILE MANAGER 04/01/2015 Office visit Suki Ibrahim SR. SOCIAL MEDIA & MOBILE MANAGER 03/03/2015 Office visit 03/03/2015 Office visit Suki Ibrahim SR. SOCIAL MEDIA & MOBILE MANAGER 02/22/2015 Office visit Ty Childers PA-C 09/23/2014 Office visit Linnette Connor SR. SOCIAL MEDIA & MOBILE MANAGER 08/23/2014 Office visit Suki Ibrahim SR. SOCIAL MEDIA & MOBILE MANAGER 05/22/2012 Office visit Renato Francis MD 05/09/2012 Office visit Suki Ibarhim SR. SOCIAL MEDIA & MOBILE MANAGER 11/30/2011 Office visit Suki Ibrahim SR. SOCIAL MEDIA & MOBILE MANAGER 11/03/2011 Office visit Suki Ibrahim SR. SOCIAL MEDIA & MOBILE MANAGER 02/11/2010 Office visit Amalia KELLER 10/06/2009 Office visit Han Benavidez DO
[2018-05-01] MEDS: LACTATED RINGERS 1,000 ML IV PRN ×2 (08:52→10:55)
[2018-05-01] MEDS ORDERED: NEO/POLY/BAC (NEOSPORIN) OINT 15 GM TUBE ONE (08:53)
--- OUTSIDE RECORDS SUMMARY | 2018-05-01 08:53 | XMS REPORT ---
Author Author Suki Ibrahim Organization [facility] Address [address] [place], [place] [address] Care Team Providers Care Activities Counselor Name Role Phone Suki Ibrahim PCP Unavailable [...] for 10 days sent to [facility] cyclobenzaprine oral 09/23/2014 citalopram 20 mg oral [...] 12:00 AM Decadron, Per 1 Mg [facility]# [address]-24 Reviewed 09/23/2014 12:00 AM Depo-Medrol 80 mg [facility]#[address]-71 Reviewed 03/03/2015 12:00 AM THER/PROPH/DIAG INJ SC/IM Reviewed 03/03/2015 12:00 AM Decadron, Per 1 Mg [facility]# [address]-50 Reviewed 03/03/2015 12:00 AM Depo-Medrol 40mg Reviewed 04/01/2015 12:00 AM CYTOPATH C/V MANUAL Returned 04/01/2015 12:00 AM CHYLMD TRACH DNA AMP PROBE Returned 04/01/2015 12:00 AM N.GONORRHOEAE DNA AMP PROB Returned 04/01/2015 12:00 AM ASSAY OF TOTAL TESTOSTERONE Returned 06/11/2015 12:00 AM THER/PROPH/DIAG INJ SC/IM Reviewed 06/11/2015 12:00 AM Decadron, Per 1 Mg [facility]# [address]-09 Reviewed 06/11/2015 12:00 AM Depo-Medrol 40mg Reviewed [...] Policy Number Policy Group Number Start Date [employer] Financial [employer] Eric [id number] N/A [facility] [id number] N/A [facility] [employer] Employee [employer] Employee Benefit [id number] N/A History of Encounters Visit Date Visit Type Provider 09/29/2015 Office visit Suki Ibrahim SEAM STAYER 07/04/2015 Office visit Linnette Connor SEAM STAYER 06/11/2015 Office visit Suki Ibrahim SEAM STAYER 04/15/2015 Office visit Suki Ibrahim SEAM STAYER 04/07/2015 Office visit Linnette Connor SEAM STAYER 04/06/2015 Office visit Frank Telles SEAM STAYER 04/01/2015 Office visit Suki Ibrahim SEAM STAYER 03/03/2015 Office visit Suki Ibrahim SEAM STAYER 02/22/2015 Office visit Ty Childers PA-C 09/23/2014 Office visit Linnette Connor SEAM STAYER 08/23/2014 Office visit Suki Ibrahim SEAM STAYER 05/22/2012 Office visit Renato Francis MD 05/09/2012 Office visit Suki Ibrahim SEAM STAYER 11/30/2011 Office visit Suki Ibrahim SEAM STAYER 11/03/2011 Office visit Suki Ibrahim SEAM STAYER 02/11/2010 Office visit Amalia KELLER 10/06/2009 Office visit Han Benavidez DO
--- OUTSIDE RECORDS SUMMARY | 2018-05-01 08:53 | XMS REPORT ---
Author Author Suki Ibrahim Organization [facility] Address [address] [place], [place] [address] Care Team Providers Care Paper Mill Manager Name Role Phone Suki Ibrahim PCP Suki Ibrahim PreferredProvider Allergies and Adverse Reactions Name Reaction Notes NO KNOWN DRUG ALLERGIES Plan of Treatment Planned Activity Comments Planned Date Planned Time Plan/Goal SED RATE 03/24/2017 12:00 AM T4 06/10/2017 12:00 AM Nuclear Medicine Thyroid Imaging 10/05/2017 12:00 AM CRP 07/25/2017 12:00 AM Polysomnogram 11/16/2017 12:00 AM CBC W/ AUTO DIFF (RFLX MAN DIFF IF IND). 12/01/2017 12:00 AM CRP 12/01/2017 12:00 AM SED RATE 12/01/2017 12:00 AM Medications Active Name Start Date [...] once daily for 10 days sent to [facility] cyclobenzaprine oral 09/23/2014 citalopram 20 mg [...] 12:00 AM Bicillin CR, 1.2 million units [facility]# 36332-872-79 Reviewed 11/30/2011 12:00 AM COMPLETE CBC W/AUTO [...] 09/23/2014 12:00 AM Decadron, Per 1 Mg [facility]# [address]-96 Reviewed 09/23/2014 12:00 AM Depo-Medrol 80 mg [facility]#[address]-80 Reviewed 03/03/2015 12:00 AM THER/PROPH/DIAG INJ SC/IM Reviewed 03/03/2015 12:00 AM Decadron, Per 1 Mg [facility]# [address]-24 Reviewed 03/03/2015 12:00 AM Depo-Medrol 40mg Reviewed 04/01/2015 12:00 AM CYTOPATH C/V MANUAL Reviewed 04/01/2015 12:00 AM CHYLMD TRACH DNA AMP PROBE Reviewed 04/01/2015 12:00 AM N.GONORRHOEAE DNA AMP PROB Reviewed 04/01/2015 12:00 AM ASSAY OF TOTAL TESTOSTERONE Reviewed 06/11/2015 12:00 AM THER/PROPH/DIAG INJ SC/IM Reviewed 06/11/2015 12:00 AM Decadron, Per 1 Mg [facility]# [address]-09 Reviewed 06/11/2015 12:00 AM Depo-Medrol 40mg Reviewed [...] Number Start Date BCBS [employer] [place] [id number] N/A [employer] Employee Health Employee Benefit [id number] N/A [employer] Financial Assistance [employer] Eric 100 percent September [facility] [id number] N/A History of Encounters Visit Date Visit Type Provider 11/16/2017 Office visit Suki Ibrahim DESKTOP PUBLISHER 11/04/2017 Office visit Shanon Rodriguez DESKTOP PUBLISHER 10/14/2017 Office visit Suki Ibrahim DESKTOP PUBLISHER 09/28/2017 Office visit Shanon Rodriguez DESKTOP PUBLISHER 07/25/2017 Office visit Suki Ibrahim DESKTOP PUBLISHER 07/19/2017 Office visit Suki Ibrahim DESKTOP PUBLISHER 07/03/2017 Office visit Shanon Rodriguez DESKTOP PUBLISHER 05/16/2017 Office visit Suki Ibrahim DESKTOP PUBLISHER 03/22/2017 Office visit Suki Ibrahim DESKTOP PUBLISHER 01/19/2017 Office visit Suki Ibrahim DESKTOP PUBLISHER 12/14/2016 Office visit Suki Ibrahim DESKTOP PUBLISHER 09/16/2016 Office visit Suki Ibrahim DESKTOP PUBLISHER 09/05/2016 Office visit Morgan Lozano NP 11/10/2015 Office visit Suki Ibrahim DESKTOP PUBLISHER 10/30/2015 Office visit Suki Ibrahim DESKTOP PUBLISHER 10/09/2015 Office visit Suki Ibrahim DESKTOP PUBLISHER 09/29/2015 Office visit Suki Ibrahim DESKTOP PUBLISHER 07/04/2015 Office visit Linnette Connor DESKTOP PUBLISHER 06/11/2015 Office visit 06/11/2015 Office visit Suki Ibrahim DESKTOP PUBLISHER 04/15/2015 Office visit Suki Ibrahim DESKTOP PUBLISHER 04/07/2015 Office visit Linnette Connor DESKTOP PUBLISHER 04/06/2015 Office visit Frank Telles DESKTOP PUBLISHER 04/01/2015 Office visit Suki Ibrahim DESKTOP PUBLISHER 03/03/2015 Office visit 03/03/2015 Office visit Suki Ibrahim DESKTOP PUBLISHER 02/22/2015 Office visit Ty Childers PA-C 09/23/2014 Office visit Linnette Connor DESKTOP PUBLISHER 08/23/2014 Office visit Suki Ibrahim DESKTOP PUBLISHER 05/22/2012 Office visit Renato Francis MD 05/09/2012 Office visit Suki Ibrahim APRN 11/30/2011 Office visit Suki Ibrahim APRN 11/03/2011 Office visit Suki Ibrahim APRN 02/11/2010 Office visit Amalia KELLER 10/06/2009 Office visit Han Benavidez DO
--- OUTSIDE RECORDS SUMMARY | 2018-05-01 08:55 | XMS REPORT ---
Author Author Suki Ibrahim [facility] Address [address] [place], [place] [address] Care Team Providers Care Medical Staff Manager Name Role Phone Suki Ibrahim PCP [...] for 10 days sent to [facility] cyclobenzaprine oral 09/23/2014 citalopram 20 mg [...] AM Bicillin CR, 1.2 million units [facility]# 58832-909-08 Reviewed 11/30/2011 12:00 AM COMPLETE CBC W/AUTO [...] 12:00 AM Decadron, Per 1 Mg [facility]# [address]-40 Reviewed 09/23/2014 12:00 AM Depo-Medrol 80 mg [facility]#[address]-44 Reviewed 03/03/2015 12:00 AM THER/PROPH/DIAG INJ SC/IM Reviewed 03/03/2015 12:00 AM Decadron, Per 1 Mg [facility]# [address]-27 Reviewed 03/03/2015 12:00 AM Depo-Medrol 40mg Reviewed 04/01/2015 12:00 AM CYTOPATH C/V MANUAL Reviewed 04/01/2015 12:00 AM CHYLMD TRACH DNA AMP PROBE Reviewed 04/01/2015 12:00 AM N.GONORRHOEAE DNA AMP PROB Reviewed 04/01/2015 12:00 AM ASSAY OF TOTAL TESTOSTERONE Reviewed 06/11/2015 12:00 AM THER/PROPH/DIAG INJ SC/IM Reviewed 06/11/2015 12:00 AM Decadron, Per 1 Mg [facility]# [address]-54 Reviewed 06/11/2015 12:00 AM Depo-Medrol 40mg Reviewed [...] Number Policy Group Number Start Date BCBS [facility] [id number] N/A [employer] Employee Health Employee Benefit [id number] N/A [employer] Financial Assistance [employer] Eric 100 percent September [employer] [id number] N/A History of Encounters Visit Date Visit Type Provider 05/16/2017 Office visit Suki Ibrahim DATA ANALYTICS ARCHITECT 03/22/2017 Office visit Suki Ibrahim DATA ANALYTICS ARCHITECT 01/19/2017 Office visit Suki Ibrahim DATA ANALYTICS ARCHITECT 12/14/2016 Office visit Suki Ibrahim DATA ANALYTICS ARCHITECT 09/16/2016 Office visit Suki Ibrahim DATA ANALYTICS ARCHITECT 09/05/2016 Office visit Morgan Lozano NP 11/10/2015 Office visit Suki Ibrahim DATA ANALYTICS ARCHITECT 10/30/2015 Office visit Suki Ibrahim DATA ANALYTICS ARCHITECT 10/09/2015 Office visit Suki Ibrahim DATA ANALYTICS ARCHITECT 09/29/2015 Office visit Suki Ibrahim DATA ANALYTICS ARCHITECT 07/04/2015 Office visit Linnette Connor DATA ANALYTICS ARCHITECT 06/11/2015 Office visit 06/11/2015 Office visit Suki Ibrahim DATA ANALYTICS ARCHITECT 04/15/2015 Office visit Suki Ibrahim DATA ANALYTICS ARCHITECT 04/07/2015 Office visit Linnette Connor DATA ANALYTICS ARCHITECT 04/06/2015 Office visit Frank Telles DATA ANALYTICS ARCHITECT 04/01/2015 Office visit Suki Ibrahim DATA ANALYTICS ARCHITECT 03/03/2015 Office visit 03/03/2015 Office visit Suki Ibrahim DATA ANALYTICS ARCHITECT 02/22/2015 Office visit Ty Childers PA-C 09/23/2014 Office visit Linnette Connor DATA ANALYTICS ARCHITECT 08/23/2014 Office visit Suki Patrice DATA ANALYTICS ARCHITECT 05/22/2012 Office visit Renato Francis MD 05/09/2012 Office visit Suki Ibrahim DATA ANALYTICS ARCHITECT 11/30/2011 Office visit Suki Ibrahim DATA ANALYTICS ARCHITECT 11/03/2011 Office visit Suki Ibrahim DATA ANALYTICS ARCHITECT 02/11/2010 Office visit Amalia KELLER 10/06/2009 Office visit Han Benavidez DO
--- OUTSIDE RECORDS SUMMARY | 2018-05-01 08:55 | XMS REPORT ---
Author Author Suki Ibrahim Organization [facility] Address [address] [place], [place] [address] Care Team Providers Care File Drawer Finisher Name Role Phone Suki Ibrahim PCP Unavailable [...] once daily for 10 days sent to [facility] cyclobenzaprine oral 09/23/2014 citalopram 20 mg oral [...] 12:00 AM Bicillin CR, 1.2 million units [facility]# 03148-854-98 Reviewed 11/30/2011 12:00 AM COMPLETE CBC W/AUTO [...] 09/23/2014 12:00 AM Decadron, Per 1 Mg [facility]# [address]-39 Reviewed 09/23/2014 12:00 AM Depo-Medrol 80 mg [facility]#[address]-88 Reviewed 03/03/2015 12:00 AM THER/PROPH/DIAG INJ SC/IM Reviewed 03/03/2015 12:00 AM Decadron, Per 1 Mg [facility]# [address]-47 Reviewed 03/03/2015 12:00 AM Depo-Medrol 40mg Reviewed 04/01/2015 12:00 AM CYTOPATH C/V MANUAL Reviewed 04/01/2015 12:00 AM CHYLMD TRACH DNA AMP PROBE Reviewed 04/01/2015 12:00 AM N.GONORRHOEAE DNA AMP PROB Reviewed 04/01/2015 12:00 AM ASSAY OF TOTAL TESTOSTERONE Reviewed 06/11/2015 12:00 AM THER/PROPH/DIAG INJ SC/IM Reviewed 06/11/2015 12:00 AM Decadron, Per 1 Mg [facility]# [address]-01 Reviewed 06/11/2015 12:00 AM Depo-Medrol 40mg Reviewed [...] Policy Number Policy Group Number Start Date [employer] Employee Health Employee Benefit [id number] N/A [employer] Financial Assistance [employer] Eric [id number] N/A [employer] [id number] N/A History of Encounters Visit Date Visit Type Provider 12/14/2016 Office visit Suki Ibrahim AIR DRILL OPERATOR 09/16/2016 Office visit Suki Ibrahim AIR DRILL OPERATOR 09/05/2016 Office visit Morgan Lozano NP 11/10/2015 Office visit Suki Ibrahim AIR DRILL OPERATOR 10/30/2015 Office visit Suki Ibrahim AIR DRILL OPERATOR 10/09/2015 Office visit Suki Ibrahim AIR DRILL OPERATOR 09/29/2015 Office visit Suki Ibrahim AIR DRILL OPERATOR 07/04/2015 Office visit Linnette Connor AIR DRILL OPERATOR 06/11/2015 Office visit 06/11/2015 Office visit Suki Ibrahim AIR DRILL OPERATOR 04/15/2015 Office visit Suki Ibrahim AIR DRILL OPERATOR 04/07/2015 Office visit Linnette Connor AIR DRILL OPERATOR 04/06/2015 Office visit Frank Telles AIR DRILL OPERATOR 04/01/2015 Office visit Suki Ibrahim AIR DRILL OPERATOR 03/03/2015 Office visit 03/03/2015 Office visit Suki Ibrahim AIR DRILL OPERATOR 02/22/2015 Office visit Ty Childers PA-C 09/23/2014 Office visit Linnette Connor AIR DRILL OPERATOR 08/23/2014 Office visit Suki Ibrahim AIR DRILL OPERATOR 05/22/2012 Office visit Renato Francis MD 05/09/2012 Office visit Suki Ibrahim AIR DRILL OPERATOR 11/30/2011 Office visit Suki Ibrahim AIR DRILL OPERATOR 11/03/2011 Office visit Suki Ibrahim AIR DRILL OPERATOR 02/11/2010 Office visit Amalia KELLER 10/06/2009 Office visit Han Benavidez DO
--- OUTSIDE RECORDS SUMMARY | 2018-05-01 08:56 | XMS REPORT ---
Author Author Suki Ibrahim [facility] Address [address] [place], [place] [address] Care Team Providers Care Court Recording Monitor Name Role Phone Suki Ibrahim PCP Unavailable [...] daily for 10 [facility] cyclobenzaprine oral 09/23/2014 citalopram 20 mg [...] AM Decadron, Per 1 Mg [facility]# [address]-52 Reviewed 09/23/2014 12:00 AM Depo-Medrol 80 mg [facility]#[address]-47 Reviewed 03/03/2015 12:00 AM THER/PROPH/DIAG INJ SC/IM Reviewed 03/03/2015 12:00 AM Decadron, Per 1 Mg [facility]# [address]-79 Reviewed 03/03/2015 12:00 AM Depo-Medrol 40mg Reviewed 04/01/2015 12:00 AM CYTOPATH C/V MANUAL Returned 04/01/2015 12:00 AM CHYLMD TRACH DNA AMP PROBE Returned 04/01/2015 12:00 AM N.GONORRHOEAE DNA AMP PROB Returned 04/01/2015 12:00 AM ASSAY OF TOTAL TESTOSTERONE Returned 06/11/2015 12:00 AM THER/PROPH/DIAG INJ SC/IM Reviewed 06/11/2015 12:00 AM Decadron, Per 1 Mg [facility]# [address]-82 Reviewed 06/11/2015 12:00 AM Depo-Medrol 40mg Reviewed [...] [facility] Financial Assistance [place] [employer] Eric [id number] N/A Social [employer] [employer] [id number] N/A [facility] Employee Health Employee Benefit [id number] N/A History of Encounters Visit Date Visit Type Provider 10/09/2015 Office visit Suki Ibrahim CREWMAN ARMOURED PERSONNEL CARRIER M113 09/29/2015 Office visit Suki Ibrahim CREWMAN ARMOURED PERSONNEL CARRIER M113 07/04/2015 Office visit Linnette Connor CREWMAN ARMOURED PERSONNEL CARRIER M113 06/11/2015 Office visit Suki Ibrahim CREWMAN ARMOURED PERSONNEL CARRIER M113 04/15/2015 Office visit Suki Ibrahim CREWMAN ARMOURED PERSONNEL CARRIER M113 04/07/2015 Office visit Linnette Connor CREWMAN ARMOURED PERSONNEL CARRIER M113 04/06/2015 Office visit Frank Telles CREWMAN ARMOURED PERSONNEL CARRIER M113 04/01/2015 Office visit Suki Ibrahim CREWMAN ARMOURED PERSONNEL CARRIER M113 03/03/2015 Office visit Suki Ibrahim CREWMAN ARMOURED PERSONNEL CARRIER M113 02/22/2015 Office visit Ty Childers PA-C 09/23/2014 Office visit Linnette Connor CREWMAN ARMOURED PERSONNEL CARRIER M113 08/23/2014 Office visit Suki Ibrahim CREWMAN ARMOURED PERSONNEL CARRIER M113 05/22/2012 Office visit Renato Francis MD 05/09/2012 Office visit Suki Ibrahim CREWMAN ARMOURED PERSONNEL CARRIER M113 11/30/2011 Office visit Suki Ibrahim CREWMAN ARMOURED PERSONNEL CARRIER M113 11/03/2011 Office visit Suki Ibrahim CREWMAN ARMOURED PERSONNEL CARRIER M113 02/11/2010 Office visit Amalia KELLER 10/06/2009 Office visit Han Benavidez DO
--- OUTSIDE RECORDS SUMMARY | 2018-05-01 08:57 | XMS REPORT ---
Author Author Suki Ibrahim Organization [facility] Address [address] [place], [place] [address] Care Team Providers Care Electrician Underground Name Role Phone Suki Ibrahim PCP Suki [...] once daily for 10 days sent to [facility] cyclobenzaprine oral 09/23/2014 citalopram 20 [...] CR, 1.2 million units [facility]# 00869-877-58 Reviewed 11/30/2011 12:00 AM COMPLETE CBC W/AUTO [...] Decadron, Per 1 Mg [facility]# [address]-15 Reviewed 09/23/2014 12:00 AM Depo-Medrol 80 mg [facility]#[address]-62 Reviewed 03/03/2015 12:00 AM THER/PROPH/DIAG INJ SC/IM Reviewed 03/03/2015 12:00 AM Decadron, Per 1 Mg [facility]# [address]-97 Reviewed 03/03/2015 12:00 AM Depo-Medrol 40mg Reviewed 04/01/2015 12:00 AM CYTOPATH C/V MANUAL Reviewed 04/01/2015 12:00 AM CHYLMD TRACH DNA AMP PROBE Reviewed 04/01/2015 12:00 AM N.GONORRHOEAE DNA AMP PROB Reviewed 04/01/2015 12:00 AM ASSAY OF TOTAL TESTOSTERONE Reviewed 06/11/2015 12:00 AM THER/PROPH/DIAG INJ SC/IM Reviewed 06/11/2015 12:00 AM Decadron, Per 1 Mg [facility]# [address]-58 Reviewed 06/11/2015 12:00 AM Depo-Medrol 40mg Reviewed [...] Group Number Start Date BCBS [employer] [place] [id number] N/A [employer] Employee Health Employee Benefit [id number] N/A DietBetter Financial Assistance DietBetter Financial Eric 100 percent September [facility] [id number] N/A History of Encounters Visit Date Visit Type Provider 11/16/2017 Office visit Suki Ibrahim FAMILY COUNSELOR 11/04/2017 Office visit Shanon Rodriguez FAMILY COUNSELOR 10/14/2017 Office visit Suki Ibrahim FAMILY COUNSELOR 09/28/2017 Office visit Shanon Rodriguez FAMILY COUNSELOR 07/25/2017 Office visit Suki Ibrahim FAMILY COUNSELOR 07/19/2017 Office visit Suki Ibrahim FAMILY COUNSELOR 07/03/2017 Office visit Shanon Rodriguez FAMILY COUNSELOR 05/16/2017 Office visit Suki Ibrahim FAMILY COUNSELOR 03/22/2017 Office visit Suki Ibrahim FAMILY COUNSELOR 01/19/2017 Office visit Suki Ibrahim FAMILY COUNSELOR 12/14/2016 Office visit Suki Ibrahim FAMILY COUNSELOR 09/16/2016 Office visit Suki Ibrahim FAMILY COUNSELOR 09/05/2016 Office visit Morgan Lozano NP 11/10/2015 Office visit Suki Ibrahim FAMILY COUNSELOR 10/30/2015 Office visit Suki Ibrahim FAMILY COUNSELOR 10/09/2015 Office visit Suki Ibrahim FAMILY COUNSELOR 09/29/2015 Office visit Suki Ibrahim FAMILY COUNSELOR 07/04/2015 Office visit Linnette Connor FAMILY COUNSELOR 06/11/2015 Office visit 06/11/2015 Office visit Suki Ibrahim FAMILY COUNSELOR 04/15/2015 Office visit Suki Ibrahim FAMILY COUNSELOR 04/07/2015 Office visit Linnette Connor FAMILY COUNSELOR 04/06/2015 Office visit Frank Telles FAMILY COUNSELOR 04/01/2015 Office visit Suki Ibrahim FAMILY COUNSELOR 03/03/2015 Office visit 03/03/2015 Office visit Suki Ibrahim FAMILY COUNSELOR 02/22/2015 Office visit Ty Childers PA-C 09/23/2014 Office visit Linnette Connor FAMILY COUNSELOR 08/23/2014 Office visit Suki Ibrahim FAMILY COUNSELOR 05/22/2012 Office visit eRnato Francis MD 05/09/2012 Office visit Suki Ibrahim APRN 11/30/2011 Office visit Suki Ibrahim APRN 11/03/2011 Office visit Suki Ibrahim APRN 02/11/2010 Office visit Amalia KELLER 10/06/2009 Office visit Han Benavidez DO
--- OUTSIDE RECORDS SUMMARY | 2018-05-01 08:58 | XMS REPORT ---
Author Author Suki Ibrahim Organization [facility] Address [address] [place], [place] [address] Care Team Providers Care Flame Degreaser Name Role Phone Suki Ibrahim PCP Unavailable [...] once daily for 10 days sent to [facility] cyclobenzaprine oral 09/23/2014 citalopram 20 [...] 12:00 AM Decadron, Per 1 Mg [facility]# [address]-98 Reviewed 09/23/2014 12:00 AM Depo-Medrol 80 mg [facility]#[address]-51 Reviewed 03/03/2015 12:00 AM THER/PROPH/DIAG INJ SC/IM Reviewed 03/03/2015 12:00 AM Decadron, Per 1 Mg [facility]# [address]-85 Reviewed 03/03/2015 12:00 AM Depo-Medrol 40mg Reviewed 04/01/2015 12:00 AM CYTOPATH C/V MANUAL Returned 04/01/2015 12:00 AM CHYLMD TRACH DNA AMP PROBE Returned 04/01/2015 12:00 AM N.GONORRHOEAE DNA AMP PROB Returned 04/01/2015 12:00 AM ASSAY OF TOTAL TESTOSTERONE Returned 06/11/2015 12:00 AM THER/PROPH/DIAG INJ SC/IM Reviewed 06/11/2015 12:00 AM Decadron, Per 1 Mg [facility]# [address]-76 Reviewed 06/11/2015 12:00 AM Depo-Medrol 40mg Reviewed [...] Policy Number Policy Group Number Start Date [place] [employer] Financial Assistance [place] [employer] Financial Eric [id number] N/A [facility] [employer] [id number] N/A [facility] [employer] Employee Health Employee Benefit [id number] N/A History of Encounters Visit Date Visit Type Provider 09/29/2015 Office visit Suki Ibrahim SWITCH ENGINEER 07/04/2015 Office visit Linnette Connor SWITCH ENGINEER 06/11/2015 Office visit Suki Ibrahim SWITCH ENGINEER 04/15/2015 Office visit Suki Ibrahim SWITCH ENGINEER 04/07/2015 Office visit Linnette Connor SWITCH ENGINEER 04/06/2015 Office visit Frank Telles SWITCH ENGINEER 04/01/2015 Office visit Suki Ibrahim SWITCH ENGINEER 03/03/2015 Office visit Suki Ibrahim SWITCH ENGINEER 02/22/2015 Office visit Ty Childers PA-C 09/23/2014 Office visit Linnette Connor SWITCH ENGINEER 08/23/2014 Office visit Suki Ibrahim SWITCH ENGINEER 05/22/2012 Office visit Renato Francis MD 05/09/2012 Office visit Suki Ibrahim SWITCH ENGINEER 11/30/2011 Office visit Suki Ibrahim SWITCH ENGINEER 11/03/2011 Office visit Suki Ibrahim SWITCH ENGINEER 02/11/2010 Office visit Amalia KELLER 10/06/2009 Office visit Han Benavidez DO
--- OUTSIDE RECORDS SUMMARY | 2018-05-01 08:59 | XMS REPORT ---
Author Author Suki Ibrahim [facility] Address [address] [place], [place] [address] Care Team Providers Care Production Metal Sprayer Name Role Phone Suki Ibrahim PCP Unavailable Suki Ibrahim PreferredProvider Unavailable Allergies and Adverse Reactions Name Reaction Notes NO KNOWN DRUG ALLERGIES Plan of Treatment Planned Activity Comments Planned Date Planned Time Plan/Goal SED RATE 03/24/2017 12:00 AM T4 06/10/2017 12:00 AM CRP 07/25/2017 12:00 AM Nuclear Medicine Thyroid Imaging 10/05/2017 12:00 AM TSH 10/14/2017 12:00 AM Medications Active Name Start Date [...] daily for [facility] days [facility] cyclobenzaprine oral 09/23/2014 citalopram 20 mg oral [...] HC BMI BSA BMI Percentile O2 Sat(%) 10/14/2017 8:14:00 AM 126 mmHg 66 mmHg [...] 12:00 AM Bicillin CR, 1.2 million units [facility]# 88971-070-23 Reviewed 11/30/2011 12:00 AM COMPLETE CBC W/AUTO [...] 12:00 AM Decadron, Per 1 Mg [facility]# [address]-00 Reviewed 09/23/2014 12:00 AM Depo-Medrol 80 mg [facility]#[address]-22 Reviewed 03/03/2015 12:00 AM THER/PROPH/DIAG INJ SC/IM Reviewed 03/03/2015 12:00 AM Decadron, Per 1 Mg [facility]# [address]-13 Reviewed 03/03/2015 12:00 AM Depo-Medrol 40mg Reviewed 04/01/2015 12:00 AM CYTOPATH C/V MANUAL Reviewed 04/01/2015 12:00 AM CHYLMD TRACH DNA AMP PROBE Reviewed 04/01/2015 12:00 AM N.GONORRHOEAE DNA AMP PROB Reviewed 04/01/2015 12:00 AM ASSAY OF TOTAL TESTOSTERONE Reviewed 06/11/2015 12:00 AM THER/PROPH/DIAG INJ SC/IM Reviewed 06/11/2015 12:00 AM Decadron, Per 1 Mg [facility]# [address]-75 Reviewed 06/11/2015 12:00 AM Depo-Medrol 40mg Reviewed [...] Policy Number Policy Group Number Start Date [facility] [id number] N/A [employer] Employee Health Employee Benefit [id number] N/A [employer] Financial Assistance [employer] Financial Eric 100 percent September [facility] [employer] [id number] N/A History of Encounters Visit Date Visit Type Provider 10/14/2017 Office visit Suki Ibrahim CREDIT REPRESENTATIVE 09/28/2017 Office visit Shanon Rodriguez CREDIT REPRESENTATIVE 07/25/2017 Office visit Suki Ibrahim CREDIT REPRESENTATIVE 07/19/2017 Office visit Suki Ibrahim APRN 07/03/2017 Office visit Shanon Rodriguez CREDIT REPRESENTATIVE 05/16/2017 Office visit Suki Ibrahim CREDIT REPRESENTATIVE 03/22/2017 Office visit Suki Ibrahim CREDIT REPRESENTATIVE 01/19/2017 Office visit Suki Ibrahim CREDIT REPRESENTATIVE 12/14/2016 Office visit Suki Ibrahim CREDIT REPRESENTATIVE 09/16/2016 Office visit Suki Ibrahim CREDIT REPRESENTATIVE 09/05/2016 Office visit Morgan Lozano NP 11/10/2015 Office visit Suki Patrice CREDIT REPRESENTATIVE 10/30/2015 Office visit Suki Ibrahim CREDIT REPRESENTATIVE 10/09/2015 Office visit Suki Ibrahim CREDIT REPRESENTATIVE 09/29/2015 Office visit Suki Ibrahim CREDIT REPRESENTATIVE 07/04/2015 Office visit Linnette Connor CREDIT REPRESENTATIVE 06/11/2015 Office visit 06/11/2015 Office visit Suki Patrice CREDIT REPRESENTATIVE 04/15/2015 Office visit Suki Patrice CREDIT REPRESENTATIVE 04/07/2015 Office visit Linnette Connor CREDIT REPRESENTATIVE 04/06/2015 Office visit Frank Telles CREDIT REPRESENTATIVE 04/01/2015 Office visit Suki Patrice CREDIT REPRESENTATIVE 03/03/2015 Office visit 03/03/2015 Office visit Suki Patrice CREDIT REPRESENTATIVE 02/22/2015 Office visit Ty Childers PA-C 09/23/2014 Office visit Linnette Connor CREDIT REPRESENTATIVE 08/23/2014 Office visit Suki Ibrahim CREDIT REPRESENTATIVE 05/22/2012 Office visit Renato Francis MD 05/09/2012 Office visit Suki Ibrahim CREDIT REPRESENTATIVE 11/30/2011 Office visit Suki Ibrahim CREDIT REPRESENTATIVE 11/03/2011 Office visit Suki Ibrahim CREDIT REPRESENTATIVE 02/11/2010 Office visit Amalia KELLER 10/06/2009 Office visit Han Benavidez DO
--- OUTSIDE RECORDS SUMMARY | 2018-05-01 09:00 | XMS REPORT ---
Author Author Han Benavidez [facility] Address [address] [place], [place] [id number] Care Team Providers Care Solicitor Patent Name Role Phone Han Benavidez PCP Unavailable [...] pack 4 mg 04/07/2015 take as directed Name Start Date Expiration Date SIG Comments [...] once daily for 10 days sent to [facility] cyclobenzaprine oral 09/23/2014 citalopram oral tablet 20 [...] HC BMI BSA BMI Percentile O2 Sat(%) 04/07/2015 2:13:00 PM 118 mmHg 70 mmHg [...] 1:40PM Elbow tendonitis Apr 07 2015 2:16PM Payers Insurance Name Company Name Plan Name Plan Number Policy Number Policy Group Number Start Date [facility] Employee Benefit [id number] N/A [facility] Financial Assistance [facility] Financial Eric [id number] N/A History of Encounters Visit Date Visit Type Provider 04/07/2015 Office visit Linnette Connor [employer]WO[employer] CUTTER 04/06/2015 Office visit Frank Telles [employer] CUTTER 04/01/2015 Office visit Suki Ibrahim [employer]ORDWOOD CUTTER 03/03/2015 Office visit Suki Ibrahim [employer]ORDWOOD CUTTER 02/22/2015 Office visit Ty Childers PA-C 09/23/2014 Office visit Linnette Connor [employer]WO[employer] CUTTER 08/23/2014 Office visit Suki Ibrahim CORDWOOD CUTTER 05/22/2012 Office visit Renato Francis MD 05/09/2012 Office visit Suki Ibrahim CORDWOOD CUTTER 11/30/2011 Office visit Suki Ibrahim CORDWOOD CUTTER 11/03/2011 Office visit Suki Ibrahim APRN 02/11/2010 Office visit Amalia KELLER 10/06/2009 Office visit Han Benavidez DO
--- OUTSIDE RECORDS SUMMARY | 2018-05-01 09:00 | XMS REPORT | Continuity of Care Document ---
Author Author [facility] Organization [facility] Address Unknown Phone Unavailable Allergies Active Description Code Type Severity Reaction Onset Reported/Identified Relationship to Patient Clinical Status Yes hydrocodone [id number] Drug Allergy Mild NAUSEA 01/19/2018 Yes oxycodone [id number] Drug Allergy Mild NAUSEA 01/19/2018 Medications There is no data. 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 Results Test Result Range RPR, Rfx Qn RPR/Confirm TP - 03/21/18 17:34 RPR Non Reactive Non Reactive Triiodothyronine,Free,Serum - 06/10/17 08:25 Triiodothyronine,Free,Serum 2.7 pg/mL 2.0-4.4 Methicillin resistant Staphylococcus aureus (MRSA) screening culture - 14:00 Methicillin resistant Staphylococcus aureus (MRSA) screening culture NEG NRG Encounters ACCT No. Visit Date/Time Discharge Status Pt. Type Provider Facility Loc./Unit Complaint [id number] 03/30/2018 09:34:25 03/30/2018 23:59:59 CLS Outpatient Walker, Suki [id number] 02/02/2018 14:18:36 02/02/2018 23:59:59 CLS Outpatient Walker, Suki [id number] 01/18/2018 14:32:19 01/18/2018 23:59:59 CLS Outpatient Walker, Suki [id number] 12/27/2017 14:43:34 12/27/2017 23:59:59 CLS Outpatient [place], Familia [id number] 12/26/2017 14:29:30 12/26/2017 23:59:59 CLS Outpatient Walker, Suki [id number] 12/19/2017 16:28:46 12/19/2017 23:59:59 CLS Outpatient Riddel, Deisy [id number] 11/16/2017 11:30:24 11/16/2017 23:59:59 CLS Outpatient Walker, Suki [id number] 11/04/2017 18:49:32 11/04/2017 23:59:59 CLS Outpatient [place] [id number] 10/14/2017 09:10:59 10/14/2017 23:59:59 CLS Outpatient Walker, Suki [id number] 09/28/2017 14:26:10 09/28/2017 23:59:59 CLS Outpatient [place], Shanon Shah [id number] 07/25/2017 14:55:47 07/25/2017 23:59:59 CLS Outpatient Walker, Suki [id number] 07/19/2017 10:13:26 07/19/2017 23:59:59 CLS Outpatient Walker, Suki [id number] 07/03/2017 14:09:49 07/03/2017 23:59:59 CLS Outpatient [place] [id number] 05/17/2017 14:57:41 05/17/2017 23:59:59 CLS Outpatient Walker, Suki [id number] 03/22/2017 11:25:53 03/22/2017 23:59:59 CLS Outpatient Walker, Suki [id number] 01/19/2017 12:19:04 01/19/2017 23:59:59 CLS Outpatient Walker, Suki [id number] 12/14/2016 09:37:51 12/14/2016 23:59:59 CLS Outpatient Walker, Suki [id number] 09/16/2016 14:58:10 09/16/2016 23:59:59 CLS Outpatient Walker, Suki [id number] 09/05/2016 15:40:37 09/05/2016 23:59:59 CLS Outpatient Potter, Morgan [id number] 11/10/2015 09:49:02 11/10/2015 23:59:59 CLS Outpatient Walker, Suki [id number] 10/30/2015 16:06:51 10/30/2015 23:59:59 CLS Outpatient Walker, Suki [id number] 10/09/2015 09:39:04 10/09/2015 23:59:59 CLS Outpatient Walker, Suki [id number] 09/29/2015 14:29:37 09/29/2015 23:59:59 CLS Outpatient Walker, Suki [id number] 07/07/2015 22:33:40 07/07/2015 23:59:59 CLS Outpatient Linnette Connor Ana M [id number] 07/07/2015 22:16:38 07/07/2015 23:59:59 CLS Outpatient Walker, Suki [id number] 07/07/2015 21:31:15 07/07/2015 23:59:59 CLS Outpatient Walker, Suki [id number] 04/07/2015 14:58:22 04/07/2015 23:59:59 CLS Outpatient Linnette Connor Ana M [id number] 04/06/2015 14:18:42 04/06/2015 23:59:59 CLS Outpatient Frank Telles [id number] 04/01/2015 10:56:11 04/01/2015 23:59:59 CLS Outpatient Walker, Suki [id number] 03/03/2015 10:45:21 03/03/2015 23:59:59 CLS Outpatient Walker, Suki [id number] 02/22/2015 09:30:26 02/22/2015 23:59:59 CLS Outpatient Ty Childers [id number] 09/23/2014 16:39:41 09/23/2014 23:59:59 CLS Outpatient Asmita Connorfany Ana M [id number] 08/23/2014 10:53:03 08/23/2014 23:59:59 CLS Outpatient Walker, Suki [id number] 03/23/2018 09:02:00 Document Registration [id number] 03/23/2017 15:06:00 Document Registration [id number] 04/20/2018 05:31:00 04/20/2018 13:08:00 DIS Outpatient LURDES RAMACHANDRAN DDS [facility] PREOP LT CONDYLAR HYPERPLASIA [id number] 01/23/2018 10:00:00 01/23/2018 23:59:59 CLS Preadmit LURDES RAMACHANDRAN DDS [facility] LEFT CONDYLAR HYPERPLASIA [id number] 01/19/2018 07:13:00 01/19/2018 15:27:00 DIS Outpatient LURDES RAMACHANDRAN DDS [facility] PREOP LEFT CONDYLAR HYPERPLASIA [id number] 05/01/2018 10:00:00 PEN Preadmit LURDES RAMACHANDRAN DDS [facility] LEFT CONDYLAR HYPERPLASIA [id number] 06/11/2017 08:10:00 Document Registration
[2018-05-01] MEDS ORDERED: SEVOFLURANE (ULTANE) 15 ML INHAL SOLN ONE ×11 (09:32→13:05)
[2018-05-01] MEDS ORDERED: LIDOCAINE JELLY 2% (XYLOCAINE) 5 ML TUBE ONE (09:32)
--- NOTE | 2018-05-01 09:48 | Progress Note-Pre Operative ---
Pre-Operative Progress Note H&P Reviewed The H&P was reviewed, patient examined and no changes noted. Date Seen by Provider: May 01, 2018 Time Seen by Provider: : Date H&P Reviewed: May 01, 2018 Time H&P Reviewed: :30 Pre-Operative Diagnosis: maxillary and mandibular asymetry LURDES RAMACHANDRAN DDS May 01, 2018 9:48 am
[2018-05-01] MEDS ORDERED: DEXAMETHASONE 4 MG/ML SDV (DECADRON) IV SCH (10:00)
[2018-05-01] MEDS ORDERED: GLYCOPYRROLATE 0.2 MG/ML (ROBINUL) 2 ML VIAL ONE (10:11)
[2018-05-01] MEDS ORDERED: KETAMINE HCL 100 MG/ML 5 ML VIAL ONE (10:26)
--- NOTE | 2018-05-01 13:23 | Progress Note-Post Operative ---
Post-Operative Progess Note Surgeon (s)/Programming Equipment Operator (s) Surgeon LURDES RAMACHANDRAN DDS Programming Equipment Operator: max acosta Pre-Operative Diagnosis maxillary and mandibular asymetry Post-Operative Diagnosis same Procedure & Operative Findings Date of Procedure 05/01/18 Procedure Performed/Findings maxillary lefort 1 and mandiblar VRO Anesthesia Type geta Estimated Blood Loss Estimated blood loss (mL): 200cc Specimens/Packing Specimens Removed none Packing: none. LURDES RAMACHANDRAN DDS May 01, 2018 1:23 pm
[2018-05-01] MEDS ORDERED: ONDANSETRON 4 MG/2 ML (SDV) Z0FRAN IVP PRN (13:30)
[2018-05-01] MEDS ORDERED: HYDROmorphone 1 MG/ML (DILAUDID) 1 ML SYRINGE IV PRN (13:30)
[2018-05-01] MEDS ORDERED: MEPERIDINE (DEMEROL) INJ 50 MG/ML IVP PRN (13:30)
[2018-05-01] MEDS ORDERED: fentaNYL INJECTION 100 MCG/2 ML AMP IVP PRN (13:30)
[2018-05-01] MEDS ORDERED: DEXAMETHASONE 4 MG/ML SDV (DECADRON) IV ONE (13:45)
[2018-05-01 14:35] VITALS: BP 118/64
[2018-05-01] MEDS: ONDANSETRON 4 MG/2 ML (SDV) Z0FRAN IVP PRN ×2 (15:14→21:14)
[2018-05-01] MEDS: HYDROmorphone 1 MG/ML (DILAUDID) 1 ML SYRINGE IV PRN ×2 (15:17→21:15)
[2018-05-01 16:39] VITALS: BP 122/66
[2018-05-01] MEDS ORDERED: NS IV 1000 ML 1,000 ML ONE (16:49)
[2018-05-01] MEDS: ceFAZolin INJECTION 1,000 MG in NS (IVPB) 50 ML IV SCH (16:57)
[2018-05-01] MEDS: NS IV 1000 ML 1,000 ML IV SCH (17:00)
[2018-05-01] MEDS: HYDROcodone/APAP 7.5MG-325 MG/15 ML (LORTAB) UDC PO PRN (17:07)
[2018-05-01 19:39] VITALS: BP 130/70
[2018-05-01] MEDS: DEXAMETHASONE 4 MG/ML SDV (DECADRON) IV SCH (21:14)
[2018-05-02] VITALS: BP 117/59
[2018-05-02] MEDS: HYDROcodone/APAP 7.5MG-325 MG/15 ML (LORTAB) UDC PO PRN (00:22)
[2018-05-02] MEDS: DEXAMETHASONE 4 MG/ML SDV (DECADRON) IV SCH ×3 (02:39→14:21)
[2018-05-02] MEDS: ceFAZolin INJECTION 1,000 MG in NS (IVPB) 50 ML IV SCH ×2 (02:39→09:29)
[2018-05-02 04:00] VITALS: BP 119/60
[2018-05-02] MEDS: NS IV 1000 ML 1,000 ML IV SCH (05:50)
[2018-05-02] MEDS: HYDROmorphone 1 MG/ML (DILAUDID) 1 ML SYRINGE IV PRN ×3 (05:50→14:20)
[2018-05-02 08:00] VITALS: BP 105/63
[2018-05-02 12:00] VITALS: BP 113/59
--- NOTE | 2018-05-02 12:19 | Anesthesia-General Post-Op ---
General Patient Condition Mental Status/LOC: Same as Preop Cardiovascular: Satisfactory Nausea/Vomiting: Absent Respiratory: Satisfactory Pain: Controlled Complications: Absent Post Op Complications Complications None Follow Up Care/Instructions Patient Instructions None needed. Anesthesia/Patient Condition Patient Condition Patient is doing well, no complaints, stable vital signs, no apparent adverse anesthesia problems. No complications reported per nursing. [place] [facility] [place]: No AWAIS EAGLE CRNA May 02, 2018 12:19
[2018-05-02 14:30] VITALS: BP 113/59
[2018-05-02 16:07] VITALS: BP 116/62
--- NOTE | 2018-05-18 03:57 | OPERATIVE REPORT ---
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 PREOPERATIVE DIAGNOSIS: Mandibular and maxillary asymmetry. POSTOPERATIVE DIAGNOSIS: Mandibular and maxillary asymmetry. PROCEDURE: [place] 1 osteotomy of the maxilla and bilateral vertical ramus osteotomies of the mandible. SURGEON: Dr. Lurdes Ramachandran. ANESTHESIA: General endotracheal. There were no complications. ESTIMATED BLOOD LOSS: 200 mL of crystalloids. BLOOD LOSS: 200 mL. FLUIDS: 1800 mL of crystalloid. URINE OUTPUT: 400 mL. HISTORY OF PRESENT ILLNESS AND INDICATIONS FOR PROCEDURE: The patient is a 32-year-old otherwise healthy white female who was referred to my office by her instructor nurse, Dr. Rufina Chase after following her for the better part of the year, which she had presurgical orthodontics complete to a level and align her. She still had a 4 mm vertical asymmetry on her maxilla as well as displacing her mandible approximately 3 mm to the right as she had some compensatory making up her mandible due to her maxillary asymmetry. After speaking with her extensively it was determined she was best be served by having a [place] 1 osteotomy with correction of her vertical asymmetry as well as her lateral asymmetry and they would also performed VRO vertical ramus osteotomy to level and align her jaws. DESCRIPTION OF PROCEDURE: The patient was taken to the operating room and placed operating table. The appropriate monitors were placed. After this, the patient was intubated nasally without difficulty. Then the surgeon left the room, scrubbed, returned, donned sterile gowns and gloves and prepped and draped the patient in the usual standard sterile fashion. After causing local anesthesia and bilateral mandibular blocks and maxillary infiltration a full thickness mucoperiosteal flap was elevated around the anterior wall of the maxilla. We then made our internal reference soriano, which correlated with our model surgery, which had been performed preoperatively with fabrication of our custom splints. After this, I made by anterior wall of the maxilla osteotomy with a reciprocating saw 25 mm above the cusp tip of the first molars bilaterally and 35 mm of the cusp tip of the maxillary canine. Then used a nasal septal osteotome to remove both the cartilaginous and bony septum from the maxillary crest. I used a curved osteotome to make an incision across the tuberosity bilaterally and also a straight osteotome along the lateral nasal wall. After this, I was able to down-fracture of the maxilla without difficulty was able to be mobilized. The greater palatine vessels were still intact. There was no excessive hemorrhage. Then, once we mobilized that we placed both the intermediate and final splint and this was wired together with the patient being in the intermaxillary fixation. We then checked our reference soriano and then after we were able to remove approximately 3.5 mm in the maxillary buttress region on her left side an approximately 2.5 mm in the piriform rim region making sure that our midlines were coincident. Then, I removed any interfering bone on the mid maxillary crest and removed any prematurities on the cartilaginous and bony septum. After this, we placed 4 plates two in the piriform rim region and two in the maxillary buttress region and these were fixated with 1.5 mm screws. After this, we copiously irrigated with normal saline and then turned our attention to the mandible after elevating a full thickness mucoperiosteal flap along the ascending ramus and down along the external oblique ridge bilaterally. I dissected subperiosteally the posterior the inferior border of the mandible and up to the sigmoid notch. We were then able to place Jimenez retractors and performed a VRO with an oscillating saw. Great care was taken to make sure we did not damage the inferior alveolar nerve as it enters the mandible on the medial side. This was completed bilaterally without difficulty. We then stripped off the tissue on the medial aspect of the mandible to allow the proximal segment to be free. With great care made sure that the condyles were still in the fossa. We removed the intermediate splint and after removing the throat pack placed the patient into intermaxillary fixation. We then copiously irrigated with normal saline and lastly the incision was closed with 4-0 Vicryl in the mandible and then 4-0 chromic in the maxilla. After we performed an alar cinch suture with 2-0 mersilene and then a minor V-Y closure in the anterior and maxillary lip region. This completed our procedure. We removed the throat pack prior to placing her into intermaxillary fixation. She was then extubated in the operating room after breathing spontaneously then she was transported to the recovery room assessed to have stable vital signs and breathing spontaneously with a pulse ox of 99%. Job ID: [id number] DocumentID: [id number] Dictated Date: 05/17/2018 16:38:04 Assistant Front End Manager Date: 05/18/2018 03:57:22 Dictated By: LURDES RAMACHANDRAN DDS
== END 2018-05-02 16:30 | disposition home or self-care (01) ==
LOC: SDC 08:07 → 4TH 14:25 → SDC 05-02 16:30
PROVIDERS: ATTEND Specialist
DX: M26.09 Other specified anomalies of jaw size (principal); F32.9 Major depressive disorder, single episode, unspecified; F41.9 Anxiety disorder, unspecified; K21.9 Gastro-esophageal reflux disease without esophagitis; F42.9 Obsessive-compulsive disorder, unspecified; Z79.899 Other long term (current) drug therapy
CPT/HCPCS: 84703; 87081; 94760